=== PATIENT | female | born 1955 | race Caucasian/White ===

== ENCOUNTER → 2017-10-12 16:32 | Outpatient (CLI) | payer OTHER, SELFPAY ==
--- NOTE | 2017-10-12 16:36 | DI.MRI.S_ITS ---
PROCEDURE: MRFOOT LT WO CON INDICATIONS: PERIOSTITIS LEFT DORSAL LATERAL FOOT. LEFT FOOT PAIN TECHNIQUE: Noncontrast sagittal T1 spin echo and T2 fast spin echo with fat saturation, long-axis T1 spin echo and T2 fast spin echo with fat saturation, short-axis T1 spin echo and T2 fast spin echo with fat saturation through the forefoot. COMPARISON: [facility], CR, XR FOOT 3 VIEWS WEIGHT BEARING LEFT, 09/28/2017, 15:31. FINDINGS: Image quality: There is mild inhomogeneous fat saturation. Bones and joints: No bone marrow contusions or fractures. No definite evidence of stress reaction or stress fractures. The sesamoid bones appear in expected positions, without internal edema. There is mild 1st metatarsophalangeal joint degeneration with a small focus of subchondral edema in the 1st metatarsal head. There is also mild degeneration at the 4th tarsometatarsal joint with mild periarticular subchondral edema No intraosseous mass lesions. Soft tissues: The visualized plantar foot muscles demonstrate normal signal and bulk. Visualized flexor and extensor tendons appear intact, without tenosynovitis. The distal insertions of the peroneus brevis and longus tendons appear intact. The principal Lisfranc ligament appears intact. No soft tissue ganglion cysts. There is trace intermetatarsal bursa fluid at the 1st metatarsal interspace. Sagittal images demonstrate no evidence for plantar plate tears. IMPRESSION: 1. No evidence of stress reaction or stress fracture. 2. No evidence of osteomyelitis. 3. 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 on 10/15/2017 at 9:18 Approved by: Jose Cooney M.D. on 10/15/2017 at 9:35
== END ==
PROVIDERS: Visit Provider Podiatrist
DX: M79.672 Pain in left foot (principal); M19.072 Primary osteoarthritis, left ankle and foot
CPT/HCPCS: 73718

== ENCOUNTER → 2018-04-04 08:25 | Outpatient (CLI) | payer OTHER, SELFPAY ==
[2018-04-04 09:47] LABS: Add Manual Diff / Slide Review NO; Basophils Absolute Auto 100 /uL (0-100); Basophils Percent Auto 1.1 % (0-2); Eosinophils Absolute Auto 100 /uL (0-450); Eosinophils Percent Auto 2.9 % (2-4); Hematocrit 38.9 % (36-46); Hemoglobin 12.9 g/dL (12.0-16.0); Lymphocytes Absolute Auto 1000 /uL (1100-4500); Lymphocytes Percent Auto 20.1 % (25-40); Mean Corpuscular HGB Conc 33.1 % (30-36); Mean Corpuscular Hemoglobin 27.1 PG (26-34); Mean Corpuscular Volume 81.8 fL (80-100); Monocytes Absolute Auto 400 /uL (0-900); Neutrophils Absolute Auto 3300 /uL (1500-7000); Neutrophils Percent Auto 67.9 % (50-75); Platelet Count 311 X10^3/uL (150-400); Red Blood Cell Count 4.75 X10^6/uL (4.0-5.2); Red Cell Distribution Width 14.6 % (11.6-14.8); White Blood Cell Count 4.8 X10^3/uL (4.5-11.0)
[2018-04-04 10:19] LABS: Alanine Aminotransferase 39 IU/L (9-52); Albumin 4.2 g/dL (3.5-5.0); Albumin Globulin Ratio 1.1 (1.0-2.8); Alkaline Phosphatase 68 U/L (38-126); Aspartate Aminotransferase 41 IU/L (14-36); BUN Creatinine Ratio 21.1 (6-22); Bilirubin Total 0.4 mg/dL (0.2-1.3); Blood Urea Nitrogen 19 mg/dL (7-17); Carbon Dioxide 27 mmol/L (22-32); Chloride 103 mmol/L (98-107); Cholesterol 228 mg/dL (140-199); Estimated Glomerular Filt Rate > 60.0 mL/min (>60); Globulin 3.7 g/dL (1.7-4.1); Glucose 101 mg/dL (80-110); HDL Cholesterol 62 mg/dL (40-60); HEMOLYSIS < 15 (0-50); LDL Cholesterol Calculated 151 mg/dL (<100); Sodium 138 mmol/L (137-145); Total Protein 7.9 g/dL (6.3-8.2); Triglycerides 73 mg/dL (35-150)
== END ==
PROVIDERS: Visit Provider Physician Assistant
DX: E78.5 Hyperlipidemia, unspecified (principal); R01.1 Cardiac murmur, unspecified
CPT/HCPCS: 36415; 80053; 80061; 85025

== ENCOUNTER 2018-04-10 19:00 | Inpatient (IN) | payer OTHER, SELFPAY ==
[2018-04-10] VITALS (7 sets, daily range): BP systolic 99–150; BP diastolic 34–69; PULSE 67–81; RESP 18–97; TEMP 37.8; O2SAT 85–94
--- NOTE | 2018-04-10 19:17 | DI.RAD.S_ITS ---
PROCEDURE: XR CHEST 1V INDICATIONS: suspected sepsis TECHNIQUE: One view of the chest was acquired. COMPARISON: None. FINDINGS: Surgical changes and devices: None. Lungs and pleura: Mild patchy bilateral perihilar densities. No pleural effusions or pneumothorax. Mediastinum: Mediastinal contours appear normal. Heart size is enlarged. Bones and chest wall: No suspicious bony lesions. Overlying soft tissues appear unremarkable. IMPRESSION: Mild atypical pneumonia. Dictated by: Derik Lovett M.D. on 04/10/2018 at 19:35 Approved by: Derik Lovett M.D. on 04/10/2018 at 19:36
[2018-04-10] MEDS: ALBUTEROL/IPRATROPIUM 3 ML AMPUL INH (19:18)
--- NOTE | 2018-04-10 19:20 | ED_ITS ---
HPI - Fever General Chief Complaint: Fever Stated Complaint: FEVER, NAUSEA, NECK AND HEAD PAIN Time Seen by Provider: 04/10/18 19:19 Source: patient Mode of arrival: ambulatory Limitations: no limitations History of Present Illness HPI Narrative: The patient has been ill for about 1 week. Illness started last week from congestion and cough. She also developed nausea, vomiting diarrhea. However the GI symptoms started after she took Mucinex. Five days ago she developed fever. She has cough ongoing. The fever and cough continued. She presents now with weakness and fatigue with persistent cough. She is a nonsmoker, she has no history of respiratory disease or CHF. She presents with dyspnea. She is found to have a room air O2 sat of 85% at triage. She has a bicuspid aortic valve, she is concerned about her heart with the infection. She denies chest pain. He has fever but no chills or sweats. She does have fatigue. She is coughing, with dyspnea. She has no orthopnea or peripheral edema associ ated with the current dyspnea. She has been experiencing syncope on a regular basis. 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 Related Data Home Medications Medication Instructions Recorded Confirmed prednisolone acetate [Omnipred] OU Q DAY #0 12/02/15 Previous Rx's Medication Instructions Recorded hydrocodone 5 mg-acetaminophen 325 1 tab PO BEDTIME #20 tab 04/03/18 mg tablet Allergies Allergy/AdvReac Type Severity Reaction Status Date / Time diphenhydramine Allergy Severe Vicious Verified 04/10/18 19:07 [From BENADRYL] nightmares codeine [CODEINE] AdvReac Mild ITCHING Verified 04/10/18 19:07 meperidine [MEPERIDINE] AdvReac Mild LOCAL Verified 04/10/18 19:07 REACTION TO IV USE oxycodone [OXYCODONE] AdvReac Mild HEADACHE Verified 04/10/18 19:07 Review of Systems Review of Systems ROS Unobtainable: All systems reviewed & are unremarkable except as noted in HPI and below Constitutional Denies chills, Reports fatigue, Reports fever(s), Reports headache(s), Reports lethargy and Denies weakness Eyes Denies irritation ENT Ears, Nose, Mouth, and Throat: Denies change in voice, Reports headache(s), Denies neck pain, Reports sinus pressure and Denies sore throat Cardiovascular Denies chest pain, Reports syncope (Multiple recent episodes.), Denies irregular heart rhythm, Denies lightheadedness, Denies palpitations, Denies dyspnea and Denies orthopnea Respiratory Denies cough (Occasion productive), Denies dyspnea and Reports other (Hemoptysis while in the ER.) Gastrointestinal Gastrointestinal: Denies abdominal pain, Reports change in bowel habits, Reports diarrhea, Reports nausea and Reports vomiting Musculoskeletal Denies back pain and Denies neck pain Integumentary/Breasts Denies erythema and Denies rash Neurologic Reports syncope (Multiple recent episodes.), Reports headache(s) and Denies weakness Endocrine Reports fatigue and Denies palpitations PFS Medical History Bicuspid aortic valve (Acute) Hypertension (Acute) Menieres syndrome (Acute) Migraines (Acute) Raynauds phenomenon (Acute) Surgical History Status post appendectomy Status post hysterectomy Status post laparoscopic cholecystectomy Social History Smoking Status: Never smoker Social History Smoking Status: Never smoker Exam Initial Vital Signs Initial Vital Signs: Vital Signs Temperature 100.1 F H 04/10/18 19:03 Pulse Rate 79 04/10/18 19:03 Respiratory Rate 18 04/10/18 19:03 Blood Pressure 139/68 04/10/18 19:03 Pulse Oximetry 85 L 04/10/18 19:03 Const General: cooperative and well developed Nutritional Appearance: well nourished Orientation: alert, awake, oriented x3 and not confused [facility] Head: normocephalic and atraumatic Ears: TM's normal bilaterally Face and sinus: sinuses nontender and face symmetric Mouth: oral mucosae normal and moist mucous membranes Throat: posterior oropharynx normal, tonsils normal and uvula midline Eyes General: appearance normal, both eyes and all related structures Eyelids: eyelids normal Conjunctivae: conjunctivae normal Sclera: sclerae normal Pupils: PERRL EOM: EOM intact bilaterally Neck Neck: no meningeal signs and No JVD Chest Chest: normal inspection of the chest Resp Effort & Inspection: normal respiratory effort, able to speak in complete sentences, respiratory distress and no use of accessory muscles Auscultation: rales (Bilateral lower lobes), no rhonchi and no wheezes Cardio Rate: regular rate Rhythm: regular rhythm Heart Sounds: S1 normal, S2 normal, no click, no gallops, murmur systolic and no rubs Pulses: normal peripheral pulses GI Inspection: non-distended Palpation: soft, no hepatosplenomegaly, No guarding, No pulsatile mass and No tender Auscultation: normal bowel sounds Back/Spine/Pelvis Back: No CVA tenderness Skin General: no rashes or lesions noted Neuro General: alert, oriented x3, gait normal and no focal motor deficits Speech: speech normal Extrem General: normal to inspection, no pedal edema, no calf tenderness and other (Normal pulses in the lower extremities) Psych Appearance: well kempt Mental Status: mental status grossly normal Attitude: cooperative Thought Content: normal and suicidality Judgment: judgment good Course Course Narrative: The patient has pneumonia with hypoxia. She has a bicuspid aortic valve. Sepsis workup is benign. She was given Levaquin. As the evaluation proceeded, the pneumonia found on the initial exam is most likely from influenza. She is receiving oxygen. She has received neb treatments with improvement. The patient also developed hemoptysis during my exam. A D-dimer that was added to the evaluation is positive. I discussed the CT with the patient. She describes profound claustrophobia, and would be uncomfortable with a CT without deep sedation. Furthermore, she protested IV contrast. She is under the impression that IV contrast may be problematic with her bicuspid valve. Further intent to do the CT tonight has been aborted. I approach the hospitalist,CRESENCIO Altamirano, suggesting giving an injection of Lovenox and following with an echocardiogram and V/Q scan tomorrow morning. The hospitalist was rightfully concerned about her heart valve. Transfer was initially jarquin ggested. The patient has an echocardiogram pending, additional cardiac evaluation seems prudent. The patient's vitals are normal, she is talking in full sentences. She has an obvious source for hypoxia with influenza pneumonia obvious by testing, physical exam, and chest x-ray. She has no evidence of congestive heart failure. Five local/regional hospitals were contacted, no available beds are present. [facility] hospitalist did evaluate her, Lovenox was given. The patient is clinically stable and will be admitted here with additional workup pending as outlined above. Orders Ordered: ED Orders 04/11/18 EC echo complete with contrast Routine US carotid doppler BI Routine 04/11/18 01:22 PEP - Flutter Valve After each nebulizer 04/11/18 02:45 Respiratory Panel (Film Array) Stat 04/11/18 05:37 B Type Natriuretic Peptide Routine Troponin I Routine 04/11/18 06:00 NM pul vent and perfusion Routine Acetaminophen (Tylenol) 650 mg PO Q6HR PRN PRN Reason: As Needed for Fever/Mild Pain Albuterol (Ventolin) 2.5 mg INH NOW PRN PRN Reason: Shortness Of Breath Or Wheezing Last Admin: 04/11/18 01:49 Dose: 2.5 mg Admin: 04/10/18 19:26 Dose: 2.5 mg Enoxaparin Sodium (Lovenox) 40 mg SUBCUT DAILY [facility] Last Admin: 04/11/18 02:04 Dose: 40 mg Sodium Chloride (Normal Saline 0.9%) 1,000 mls @ 150 mls/hr IV CONT [facility] Last Admin: 04/11/18 01:57 Dose: 150 mls/hr Ondansetron HCl (Zofran) 4 mg IV Q8HR PRN PRN Reason: Nausea And Vomiting Oseltamivir Phosphate (Tamiflu) 75 mg PO BID [facility] Last Admin: 04/11/18 02:02 Dose: 75 mg Promethazine HCl (Phenadoz) 12.5 mg CA Q6HR PRN PRN Reason: Nausea And Vomiting Discontinued Medications Acetaminophen (Tylenol) 650 mg PO NOW ONE Stop: 04/10/18 21:07 Last Admin: 04/11/18 01:58 Dose: 650 mg Albuterol/Ipratropium (Duoneb) 3 ml INH NOW ONE Stop: 04/10/18 19:17 Last Admin: 04/10/18 19:18 Dose: 3 ml Sodium Chloride (Normal Saline 0.9%) 1,000 mls @ 1,000 mls/hr IV BOLUS ONE Stop: 04/10/18 20:16 Last Infusion: 04/10/18 21:00 Dose: 0 mls/hr Admin: 04/10/18 19:43 Dose: 1,000 mls/hr Sodium Chloride (Normal Saline 0.9%) 1,000 mls @ 1,000 mls/hr IV BOLUS ONE Stop: 04/10/18 20:30 Last Infusion: 04/11/18 01:37 Dose: 0 mls/hr Admin: 04/10/18 22:47 Dose: 1,000 mls/hr Levofloxacin (Levaquin) 750 mg in 150 mls @ 100 mls/hr IV NOW ONE Stop: 04/10/18 21:00 Last Infusion: 04/10/18 22:47 Dose: 0 mls/hr Admin: 04/10/18 20:08 Dose: 100 mls/hr Lorazepam (Ativan) 0.5 mg IV NOW ONE Stop: 04/10/18 21:07 Last Admin: 04/11/18 00:46 Dose: 0.5 mg Ondansetron HCl (Zofran) 4 mg IV NOW ONE Stop: 04/10/18 19:42 Last Admin: 04/10/18 19:43 Dose: 4 mg Quetiapine Fumarate (Seroquel) 25 mg PO NOW ONE Stop: 04/11/18 01:23 Last Admin: 04/11/18 02:02 Dose: 25 mg Vital Signs - 8 hr 04/11/18 01:15 04/11/18 01:23 04/11/18 01:45 Temperature 101.4 F H Pulse Rate 81 79 Respiratory Rate 21 24 Blood Pressure 130/87 146/88 H Pulse Oximetry 97 97 95 04/11/18 01:49 04/11/18 04:38 04/11/18 05:23 Temperature 99.1 F Pulse Rate 80 70 Respiratory Rate 20 16 Blood Pressure 120/60 Pulse Oximetry 98 92 95 MDM - Fever Lab Data Result diagrams: 04/10/18 19:36 04/10/18 19:36 Lab Results 04/10/18 04/10/18 04/10/18 Range/Units 19:36 19:36 19:36 WBC 3.2 L (4.5-11.0) X10^3/uL RBC 4.71 (4.0-5.2) X10^6/uL Hgb 12.6 (12.0-16.0) g/dL Hct 38.5 (36-46) % MCV 81.6 (80-100) fL MCH 26.8 (26-34) PG MCHC 32.8 (30-36) % RDW 14.7 (11.6-14.8) % Plt Count 229 (150-400) X10^3/uL Neut % (Auto) 80.8 H (50-75) % Lymph % (Auto) 12.8 L (25-40) % [place] % (Auto) 5.9 (3-14) % Eos % (Auto) 0.0 L (2-4) % Baso % (Auto) 0.5 (0-2) % Neut # (Auto) 2600 (6299-7090) /uL Lymph # (Auto) 400 L (7260-6666) /uL [place] # (Auto) 200 (0-900) /uL Eos # (Auto) 0 (0-450) /uL Baso # (Auto) 0 (0-100) /uL PT 13.0 H (10.1-12.7) SECONDS INR 1.1 (0.9-1.3) APTT 30 (26.4-36.2) SECONDS D-Dimer (<230) ng/mL Sodium (137-145) mmol/L Potassium (3.4-5.1) mmol/L Chloride (98-107) mmol/L Carbon Dioxide (22-32) mmol/L BUN (7-17) mg/dL Creatinine (0.52-1.04) mg/dL Estimated GFR (>60) mL/min BUN/Creatinine Ratio (6-22) Glucose (80-110) mg/dL Lactate (0.7-2.1) mmol/L Calcium (8.4-10.2) mg/dL Total Bilirubin (0.2-1.3) mg/dL AST (14-36) IU/L ALT (9-52) IU/L Alkaline Phosphatase (38-126) U/L Total Protein (6.3-8.2) g/dL Albumin (3.5-5.0) g/dL Globulin (1.7-4.1) g/dL Albumin/Globulin Ratio (1.0-2.8) Lipase (23-300) U/L Procalcitonin < 0.05 (<0.5) ng/mL Chlamy pneumoniae PCR (Not Detect) Adenovirus (PCR) (Not Detect) B.parapertussis DNA PCR (Not Detect) Coronavirus OC43 (PCR) (Not Detect) Coronavirus HKU1 (PCR) (Not Detect) Coronavirus 229E (PCR) (Not Detect) Coronavirus NL63 (PCR) (Not Detect) Human Metapneumovir PCR (Not Detect) Influenza Type A (PCR) (Not Detect) Influenza Type B (PCR) (Not Detect) Influenza A & B (PCR) (Negative) M. pneumoniae (PCR) (Not Detect) Parainfluenza 1 (PCR) (Not Detect) Parainfluenza 2 (PCR) (Not Detect) Parainfluenza 3 (PCR) (Not Detect) Parainfluenza 4 (PCR) (Not Detect) RSV (PCR) (Not Detect) Entero/Rhino (PCR) (Not Detect) 04/10/18 04/10/18 04/10/18 Range/Units 19:36 19:36 19:36 WBC (4.5-11.0) X10^3/uL RBC (4.0-5.2) X10^6/uL Hgb (12.0-16.0) g/dL Hct (36-46) % MCV (80-100) fL MCH (26-34) PG MCHC (30-36) % RDW (11.6-14.8) % Plt Count (150-400) X10^3/uL Neut % (Auto) (50-75) % Lymph % (Auto) (25-40) % [place] % (Auto) (3-14) % Eos % (Auto) (2-4) % Baso % (Auto) (0-2) % Neut # (Auto) (5960-5731) /uL Lymph # (Auto) (0484-0621) /uL [place] # (Auto) (0-900) /uL Eos # (Auto) (0-450) /uL Baso # (Auto) (0-100) /uL PT (10.1-12.7) SECONDS INR (0.9-1.3) APTT (26.4-36.2) SECONDS D-Dimer 725 H (<230) ng/mL Sodium 134 L (137-145) mmol/L Potassium 3.5 (3.4-5.1) mmol/L Chloride 99 (98-107) mmol/L Carbon Dioxide 26 (22-32) mmol/L BUN 10 (7-17) mg/dL Creatinine 0.80 (0.52-1.04) mg/dL Estimated GFR > 60.0 (>60) mL/min BUN/Creatinine Ratio 12.5 (6-22) Glucose 117 H (80-110) mg/dL Lactate 0.9 (0.7-2.1) mmol/L Calcium 8.2 L (8.4-10.2) mg/dL Total Bilirubin 0.5 (0.2-1.3) mg/dL AST 55 H (14-36) IU/L ALT 52 (9-52) IU/L Alkaline Phosphatase 92 (38-126) U/L Total Protein 7.4 (6.3-8.2) g/dL Albumin 3.8 (3.5-5.0) g/dL Globulin 3.6 (1.7-4.1) g/dL Albumin/Globulin Ratio 1.1 (1.0-2.8) Lipase 76 (23-300) U/L Procalcitonin (<0.5) ng/mL Chlamy pneumoniae PCR (Not Detect) Adenovirus (PCR) (Not Detect) B.parapertussis DNA PCR (Not Detect) Coronavirus OC43 (PCR) (Not Detect) Coronavirus HKU1 (PCR) (Not Detect) Coronavirus 229E (PCR) (Not Detect) Coronavirus NL63 (PCR) (Not Detect) Human Metapneumovir PCR (Not Detect) Influenza Type A (PCR) (Not Detect) Influenza Type B (PCR) (Not Detect) Influenza A & B (PCR) (Negative) M. pneumoniae (PCR) (Not Detect) Parainfluenza 1 (PCR) (Not Detect) Parainfluenza 2 (PCR) (Not Detect) Parainfluenza 3 (PCR) (Not Detect) Parainfluenza 4 (PCR) (Not Detect) RSV (PCR) (Not Detect) Entero/Rhino (PCR) (Not Detect) 04/10/18 04/11/18 Range/Units 19:36 02:45 WBC (4.5-11.0) X10^3/uL RBC (4.0-5.2) X10^6/uL Hgb (12.0-16.0) g/dL Hct (36-46) % MCV (80-100) fL MCH (26-34) PG MCHC (30-36) % RDW (11.6-14.8) % Plt Count (150-400) X10^3/uL Neut % (Auto) (50-75) % Lymph % (Auto) (25-40) % [place] % (Auto) (3-14) % Eos % (Auto) (2-4) % Baso % (Auto) (0-2) % Neut # (Auto) (8501-5880) /uL Lymph # (Auto) (5318-0884) /uL [place] # (Auto) (0-900) /uL Eos # (Auto) (0-450) /uL Baso # (Auto) (0-100) /uL PT (10.1-12.7) SECONDS INR (0.9-1.3) APTT (26.4-36.2) SECONDS D-Dimer (<230) ng/mL Sodium (137-145) mmol/L Potassium (3.4-5.1) mmol/L Chloride (98-107) mmol/L Carbon Dioxide (22-32) mmol/L BUN (7-17) mg/dL Creatinine (0.52-1.04) mg/dL Estimated GFR (>60) mL/min BUN/Creatinine Ratio (6-22) Glucose (80-110) mg/dL Lactate (0.7-2.1) mmol/L Calcium (8.4-10.2) mg/dL Total Bilirubin (0.2-1.3) mg/dL AST (14-36) IU/L ALT (9-52) IU/L Alkaline Phosphatase (38-126) U/L Total Protein (6.3-8.2) g/dL Albumin (3.5-5.0) g/dL Globulin (1.7-4.1) g/dL Albumin/Globulin Ratio (1.0-2.8) Lipase (23-300) U/L Procalcitonin (<0.5) ng/mL Chlamy pneumoniae PCR Not detected (Not Detect) Adenovirus (PCR) Not detected (Not Detect) B.parapertussis DNA PCR Not detected (Not Detect) Coronavirus OC43 (PCR) Not detected (Not Detect) Coronavirus HKU1 (PCR) Not detected (Not Detect) Coronavirus 229E (PCR) Not detected (Not Detect) Coronavirus NL63 (PCR) Not detected (Not Detect) Human Metapneumovir PCR Not detected (Not Detect) Influenza Type A (PCR) Not detected (Not Detect) Influenza Type B (PCR) Not detected (Not Detect) Influenza A & B (PCR) Positive, type a A (Negative) M. pneumoniae (PCR) Not detected (Not Detect) Parainfluenza 1 (PCR) Not detected (Not Detect) Parainfluenza 2 (PCR) Not detected (Not Detect) Parainfluenza 3 (PCR) Not detected (Not Detect) Parainfluenza 4 (PCR) Not detected (Not Detect) RSV (PCR) Not detected (Not Detect) Entero/Rhino (PCR) Not detected (Not Detect) Imaging Data Chest x-ray: Radiologist's impression: [place] [address] CT Scan Report Signed Patient: Freda Luna [facility]#: [id number] : 03/15/1983Acct:[id number] Age/Sex: 35 / FDate of Service: 04/10/18 Loc: ED Accession Number: [id number] Procedure: CT head/brain wo con Ordering Provider: Darwin Camilo M.D. PROCEDURE: CT HEAD/BRAIN WO CON INDICATIONS: left arm numbness TECHNIQUE: Noncontrast 4.5 mm thick angled axial sections acquired from the foramen magnum to the vertex, with coronal and sagittal reformats. For radiation dose reduction, the following was used: automated exposure control, adjustment of mA and/or kV according to patient size. COMPARISON: None. FINDINGS: Image quality: Excellent. CSF spaces: Basal cisterns are patent. No extra-axial fluid collections. Ventricles are normal in size and shape. Brain: No midline shift. No intracranial masses or hemorrhage. Quintero-white matter interface is normal. Skull and face: Calvarium and visualized facial bones are intact, without suspicious lesions. Sinuses: Visualized sinuses and mastoids are clear. IMPRESSION: No acute intracranial abnormality. Dictated by: Derik Lovett M.D. on 04/10/2018 at 19:36 Approved by: Derik Lovett M.D. on 04/10/2018 at 19:37 Discharge Plan Departure Patient Disposition: Admitted as Observation Clinical Impression: Influenza A with pneumonia, Bicuspid aortic valve Discharge Date/Time: 04/11/18 01:26 Interventions: ED Discharge Assessment Last Done: 04/11/18 01:15 Referrals: Aparna Mayo PA-C [Primary Care Provider] - Admit Date/Time: 04/11/18 00:15 Admit Provider: Daniel Altamirano
[2018-04-10] MEDS: ALBUTEROL 2.5 MG/3 ML NEB (ADULT) INH (19:26)
[2018-04-10] MEDS: ONDANSETRON 4 MG/2 ML INJ IV (19:43)
[2018-04-10] MEDS: SODIUM CHLORIDE 0.9% 1,000 ML 1000 ML IV ×2 (19:43→22:47)
[2018-04-10 19:51] LABS: Add Manual Diff / Slide Review NO; Basophils Absolute Auto 0 /uL (0-100); Basophils Percent Auto 0.5 % (0-2); Eosinophils Absolute Auto 0 /uL (0-450); Hematocrit 38.5 % (36-46); Hemoglobin 12.6 g/dL (12.0-16.0); Lymphocytes Absolute Auto 400 /uL (1100-4500); Lymphocytes Percent Auto 12.8 % (25-40); Mean Corpuscular HGB Conc 32.8 % (30-36); Mean Corpuscular Hemoglobin 26.8 PG (26-34); Mean Corpuscular Volume 81.6 fL (80-100); Monocytes Absolute Auto 200 /uL (0-900); Monocytes Percent Auto 5.9 % (3-14); Neutrophils Absolute Auto 2600 /uL (1500-7000); Neutrophils Percent Auto 80.8 % (50-75); Platelet Count 229 X10^3/uL (150-400); Red Blood Cell Count 4.71 X10^6/uL (4.0-5.2); Red Cell Distribution Width 14.7 % (11.6-14.8); White Blood Cell Count 3.2 X10^3/uL (4.5-11.0)
[2018-04-10 19:55] LABS: INR 1.1 (0.9-1.3)
[2018-04-10 19:58] LABS: PTT Partial Thromboplastin Tim 30 SECONDS (26.4-36.2)
[2018-04-10 20:01] LABS: Lactate (Lactic Acid) 0.9 mmol/L (0.7-2.1)
[2018-04-10 20:04] LABS: Alanine Aminotransferase 52 IU/L (9-52); Albumin 3.8 g/dL (3.5-5.0); Albumin Globulin Ratio 1.1 (1.0-2.8); Alkaline Phosphatase 92 U/L (38-126); Aspartate Aminotransferase 55 IU/L (14-36); BUN Creatinine Ratio 12.5 (6-22); Bilirubin Total 0.5 mg/dL (0.2-1.3); Blood Urea Nitrogen 10 mg/dL (7-17); Calcium 8.2 mg/dL (8.4-10.2); Carbon Dioxide 26 mmol/L (22-32); Chloride 99 mmol/L (98-107); Estimated Glomerular Filt Rate > 60.0 mL/min (>60); Globulin 3.6 g/dL (1.7-4.1); Glucose 117 mg/dL (80-110); HEMOLYSIS 36 (0-50); Lipase 76 U/L (23-300); Potassium 3.5 mmol/L (3.4-5.1); Sodium 134 mmol/L (137-145); Total Protein 7.4 g/dL (6.3-8.2)
[2018-04-10] MEDS: levoFLOXacin 750 MG/150 ML PIGGYBACK 100 MG IV (20:08)
[2018-04-10 20:27] LABS: Procalcitonin < 0.05 ng/mL (<0.5)
[2018-04-10 20:48] LABS: D Dimer 725 ng/mL (<230)
[2018-04-11] VITALS (13 sets, daily range): BP systolic 120–154; BP diastolic 56–88; PULSE 70–81; RESP 16–24; TEMP 36.4–38.6; O2SAT 84–98; BMI 38.2
--- NOTE | 2018-04-11 | DI.ECHO.S_ITS ---
[facility]---------+ [facility] +---------+ : : [address] : : : : [id number] : : : : Phone: [phone]+ Echocardiogram Report + + :Name: FROILAN LOPES Study Date: 04/11/2018 Height: 64 in : :[facility] Weight: 222 lb: : Gender: Female BSA: 2.0 m2 : :: 1955 Age: 62 yrs : :Reason For Study: Pneumonia : : Performed By: Dania Tidwell : :Referring: ISHAAN FRAGA : + + Interpretation Summary 1) Normal left ventricular thickness, size, wall motion, and systolic function (EF 60-65%). 2) Normal right ventricular size and function. 3) There is severe aortic stenosis (valve area 0.8cm2, mean gradient 56mmHg, severity ratio 0.19). 4) The right ventricular systolic pressure is estimated to be at least 46 mmHg based on an estimated right atrial pressure of 8 mm Hg. 5) No prior Echo available for comparison. Recommend cardiology consultation. Findings discussed with Dr. Devlin on 04/11/2018 at 1320. Procedure: A two-dimensional transthoracic echocardiogram with color flow and Doppler was performed. The study quality was technically adequate. There is no prior echocardiogram noted for this patient. The heart rate ranged between 74-75 bpm during the study. Left Ventricle: The left ventricle is normal in size. There is mild asymmetric left ventricular hypertrophy. The ejection fraction is estimated to be 60-65%. Right Ventricle: The right ventricle grossly appears normal in size with probable normal systolic function. Atria: The left atrial size is normal. Right atrial size is normal. Injection of contrast documented no interatrial shunt. Mitral Valve: The mitral valve is normal in structure and function. There is no mitral regurgitation noted. Aortic Valve: There is severe aortic valve sclerosis. The calculated aortic valve area is 0.8 cm2. The peak aortic velocity is 4.9 m/sec. The aortic valve mean gradient is 56 mmHg. Severity ratio is 0.19. The aortic valve area indexed to the BSA is 0.37 . There is severe aortic stenosis. There is trace aortic regurgitation. Tricuspid Valve: The tricuspid valve is normal in structure and function. There is trace tricuspid regurgitation. The right ventricular systolic pressure is estimated to be at least 46 mmHg based on an estimated right atrial pressure of 8 mm Hg. Pulmonic Valve: The pulmonic valve is not well seen, but is grossly normal. There is trace pulmonic regurgitation. Great Vessels: The aortic root is normal size. The dimensions of the ascending aorta are normal. The IVC is dilated (diameter is greater than 2.1 cm) yet it collapses greater than 50% with a sniff. This suggests a right atrial pressure of 8 mm Hg. Pericardium/ Pleura There is no pericardial effusion. There has been no significant change since the previous study. MMode/2D Measurements & Calculations LVIDd: 5.4 cm LVOT diam: 2.2 cm LVIDs: 2.9 cm Ao root diam: 3.3 cm FS: 47.0 % Aortic Jxn: 2.8 cm EPSS: 0.96 cm asc Aorta Diam: 3.0 cm IVSd: 0.97 cm LVPWd: 1.3 cm LV parish. diameter/BSA (cm/m^2): 2.6 LV sys. diameter/BSA (cm/m^2): 1.4 LA dimension: 4.0 cm RA long axis: 5.0 cm LA A2 area: 19.6 cm2 RA area: 13.6 cm2 LA A4 area: 25.9 cm2 RA vol: 31.5 ml LA length (vol): 6.2 cm RA : 15.4 ml/m2 LA vol: 69.9 ml IVC diam: 2.3 cm LA vol index: 34.2 ml/m2 RVDd major: 6.7 cm RVD1 (basal): 3.5 cm RVD2 (mid): 3.4 cm Doppler Measurements & Calculations Ao V2 max: 494.7 cm/sec LVOT Max Rpahael: 95.0 cm/sec Ao V2 mean: 349.4 cm/sec LV V1 max P.6 mmHg Ao max P.9 mmHg LV V1 VTI: 21.8 cm Ao mean P.0 mmHg JAYY(I,D): 0.76 cm2 Ao V2 VTI: 112.4 cm JAYY(V,D): 0.76 cm2 sev ratio: 0.19 JAYY indexed to BSA (cm^2/m^2): 0.37 MV E max raphael: 160.8 cm/sec TR max raphael: 310.0 cm/sec MV A max raphael: 111.6 cm/sec TR max P.4 mmHg MV E/A: 1.4 PA V2 max: 129.8 cm/sec Med Peak E' Raphael: 6.5 cm/sec PA V2 mean: 80.1 cm/sec E/E' med: 24.6 PA mean P.2 mmHg Lat Peak E' Raphael: 6.4 cm/sec PA Accel Time: 0.13 sec E/E' lat: 25.0 E/e' average: 24.8 MV dec time: 0.17 sec MV P1/2t: 52.7 msec MV P1/2t max raphael: 160.8 cm/sec SV(LVOT): 85.9 ml MVA(P1/2t): 4.2 cm2 Reading Physician:01:24 PM
--- NOTE | 2018-04-11 | DI.US.S_ITS ---
PROCEDURE: US CAROTID DOPPLER BI INDICATIONS: SYNCOPE, HLD, CONCERN FOR PE TECHNIQUE: Color and pulse Doppler interrogation was performed of both carotid systems, with image documentation and velocity measurements. COMPARISON: None. FINDINGS: Stenosis calculations are based on SRU (Society of Radiologists in Ultrasound) criteria. Right side: Brachial blood pressure: 136/64 mm Hg. Common carotid artery peak systolic velocity: 74 cm/sec. Internal carotid artery peak systolic velocity: 113 cm/sec. Internal carotid artery end diastolic velocity: 2.7 cm/sec. External carotid artery peak systolic velocity: 104 cm/sec. ICA/CCA peak systolic ratio: 1.5. Quintero scale imaging description: No identified calcific or soft plaque Percent internal carotid artery stenosis: None found. Vertebral artery: Flow direction is antegrade. Left side: Brachial blood pressure: 144/62 mm Hg. Common carotid artery peak systolic velocity: 90 cm/sec. Internal carotid artery peak systolic velocity: 116 cm/sec. Internal carotid artery end diastolic velocity: 26 cm/sec. External carotid artery peak systolic velocity: 98 cm/sec. ICA/CCA peak systolic ratio: 1.3. Quintero scale imaging description: No calcific or soft plaque found Percent internal carotid artery stenosis: None identified. Vertebral artery: Flow direction is antegrade. IMPRESSION: Normal examination bilaterally. Dictated by: Helder Beck M.D. on 04/11/2018 at 10:38 Approved by: Helder Beck M.D. on 04/11/2018 at 10:41
[2018-04-11] MEDS: LORazepam 2 MG/ML SYRINGE 0.5 MG IV (00:46)
[2018-04-11] MEDS: ALBUTEROL 2.5 MG/3 ML NEB (ADULT) INH ×2 (01:49→07:51)
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
[2018-04-11] MEDS: SODIUM CHLORIDE 0.9% 1,000 ML 150 ML IV ×2 (01:57→08:11)
[2018-04-11] MEDS: ACETAMINOPHEN 325 MG TABLET 650 MG PO ×3 (01:58→13:05)
[2018-04-11] MEDS: QUETIAPINE 25 MG TABLET PO (02:02)
[2018-04-11] MEDS: OSELTAMIVIR 75 MG CAPSULE PO ×2 (02:02→08:11)
[2018-04-11] MEDS: ENOXAPARIN 40 MG/0.4 ML SYRINGE SUBCUT (02:04)
[2018-04-11 04:11] LABS: Adenovirus Not Detected (Not Detect); Bordetella pertussis Not Detected (Not Detect); Chlamydophila pneumoniae Not Detected (Not Detect); Coronavirus 229E Not Detected (Not Detect); Coronavirus HKU1 Not Detected (Not Detect); Coronavirus NL 63 Not Detected (Not Detect); Coronavirus OC43 Not Detected (Not Detect); Human Metapneumovirus Not Detected (Not Detect); Human Rhinovirus/Enterovirus Not Detected (Not Detect); Influenza A Not Detected (Not Detect); Influenza B Not Detected (Not Detect); Mycoplasma pneumoniae Not Detected (Not Detect); Parainfluenza Virus 1 Not Detected (Not Detect); Parainfluenza Virus 2 Not Detected (Not Detect); Parainfluenza Virus 3 Not Detected (Not Detect); Parainfluenza Virus 4 Not Detected (Not Detect); Respiratory Syncytial Virus Not Detected (Not Detect)
--- NOTE | 2018-04-11 05:23 | PC.ADMIT ---
DOES NOT WANT TO [id number] Admission Note: The patient,Eboni Huerta,62 y/o, was given written information regarding hospital policies, unit procedures and contact persons. Patient's smoking status: Never smoker. Vital Signs - 8 hr 04/10/18 22:20 04/11/18 01:15 04/11/18 01:23 Temperature 101.4 F H Pulse Rate 76 81 79 Respiratory Rate 97 H 21 24 Blood Pressure 130/87 146/88 H Blood Pressure [Right Arm] 99/34 L Pulse Oximetry 97 97 04/11/18 01:45 04/11/18 01:49 04/11/18 04:38 Temperature Pulse Rate 80 Respiratory Rate 20 Blood Pressure Blood Pressure [Right Arm] Pulse Oximetry 95 98 92 Patient is admitted to AC room 217 via stretcher, fatigued and dyspneic with exertion, initially placed on 4L NC, SpO2 >94% 2-3L now after neb tx. Breath sounds coarse wheezes throughout, persistent non-productive cough. SR/ST on Telemetry. Temp 101.4, PO Tylenol given along with Tamiflu and Seroquel for sleep. Lovenox given, IVF NS @ 150ml/hr. PIV in Lt hand removed per her request d/t pain. See assessment notes.
[2018-04-11 06:37] LABS: B Type Natriuretic Peptide 152 (<100)
[2018-04-11 10:21] LABS: Hematocrit 33.5 % (36-46); Mean Corpuscular HGB Conc 32.9 % (30-36); Mean Corpuscular Hemoglobin 26.8 PG (26-34); Mean Corpuscular Volume 81.6 fL (80-100); Platelet Count 164 X10^3/uL (150-400); Red Blood Cell Count 4.11 X10^6/uL (4.0-5.2); Red Cell Distribution Width 14.5 % (11.6-14.8)
[2018-04-11 10:28] LABS: Add Manual Diff / Slide Review YES; White Blood Cell Count 1.9 X10^3/uL (4.5-11.0)
[2018-04-11] MEDS: ALBUTEROL/IPRATROPIUM 3 ML AMPUL INH ×2 (10:28→15:35)
[2018-04-11 10:41] LABS: Magnesium 1.7 mg/dL (1.6-2.3)
[2018-04-11 10:43] LABS: BUN Creatinine Ratio 8.6 (6-22); Blood Urea Nitrogen 6 mg/dL (7-17); Calcium 7.1 mg/dL (8.4-10.2); Carbon Dioxide 25 mmol/L (22-32); Chloride 102 mmol/L (98-107); Estimated Glomerular Filt Rate > 60.0 mL/min (>60); Glucose 139 mg/dL (80-110); HEMOLYSIS < 15 (0-50); Sodium 135 mmol/L (137-145)
[2018-04-11 10:52] LABS: Neutrophils Absolute Manual 1444 /uL (3000-5900); Total Cells Counted 50
[2018-04-11 10:53] LABS: RBC Morphology Normal Morphology
[2018-04-11 11:24] LABS: Procalcitonin < 0.05 ng/mL (<0.5)
[2018-04-11] MEDS: levoFLOXacin 750 MG/150 ML PIGGYBACK 100 MG IV (12:09)
[2018-04-11] MEDS: prednisoLONE OPHTH SUSP 1 DROPS EYE-BOTH (12:10)
[2018-04-11] MEDS: FUROSEMIDE 20 MG/2 ML VIAL IV (14:11)
[2018-04-11] MEDS: CALCIUM GLUCONATE 4.65 MEQ in SODIUM CHLORIDE 0.9% 50 ML 120 ML IV (14:29)
[2018-04-11] MEDS: POTASSIUM CHLORIDE 40 MEQ in SODIUM CHLORIDE 0.9% 500 ML 130 ML IV (15:09)
[2018-04-11] MEDS: BENZONATATE 100 MG CAPSULE PO (15:16)
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
--- NOTE | 2018-04-11 16:08 | PC.NURSE ---
Cardiac/Resp: Lungs very course through out. Freq loose cough, pt reporting she has brought up some blood tinged secretions. O2 on at 3L NC with a cont pulse ox showing sats are 96% or greater. Hx of fall and rib fx, pt up with assist only. No c/p but does feel sob and rr is elevated to 32 when she is up at times. Likes to keep hob elevated. Pt's abnormal labs were called to this am along with her resp status. See multiple new orders. Is c/p free and tele on, has been in sr. Pt has been keeping family updated on her condition and has not wanted this nurse to call anyone for her. Pt requesting to go to [facility] if this is a cardiac related issue. Dr. Devlin in to see pt several times. [facility] is accepting the patient. Report called to donnell in ICU and reviewed pt's hospital course, lab values, what was being done to correct them. Potential fluid overload and received IV lasix. Recent fall and rib fx. Current cardiac status and echo. Questions answered. Pt to be transfered by [facility].
[2018-04-11] MEDS: CEFTRIAXONE 2 GM/50 ML FROZ.PIGGY IV (16:36)
--- NOTE | 2018-04-12 11:48 | CM.IDA ---
Addendum entered by JOCELYN Gutierrez 04/12/18 11:51: Late Entry Original Note: Trnsf to [facility] 3.7.19, no need for initial DCP assessment. JW
== END 2018-04-11 17:17 | disposition short-term general hospital (02) | DRG 871 ==
LOC: ED 20:48 → AC 04-11 00:17
PROVIDERS: Admitting Provider Nurse Practitioner Gerontology; Emergency Provider Emergency Medicine; Family Provider Physician Assistant; PCP Physician Assistant; Visit Provider Nurse Practitioner Gerontology
DX: A41.9 Sepsis, unspecified organism (principal); J10.08 Influenza due to other identified influenza virus with other specified pneumonia; J18.8 Other pneumonia, unspecified organism; J96.01 Acute respiratory failure with hypoxia; Q23.1 Congenital insufficiency of aortic valve; R04.2 Hemoptysis; R65.20 Severe sepsis without septic shock; I10 Essential (primary) hypertension; R73.9 Hyperglycemia, unspecified; E86.1 Hypovolemia; E87.5 Hyperkalemia; F40.240 Claustrophobia; R20.0 Anesthesia of skin; Z53.29 Procedure and treatment not carried out because of patient's decision for other reasons
CPT/HCPCS: 36415; 36591; 71045; 80048; 80053; 83605; 83690; 83735; 83880; 84145; 84484; 85025; 85379; 85610; 85730; 87040; 87070; 87205; 87400; 87449; 87633; 93880; 94640; 94760; 96361; 96365; 96366; 96374; 99285; C8929; J0610; J0696; J1650; J1940; J1956; J2060; J2405; J3480; J7613

== ENCOUNTER 2018-05-07 15:13 | Inpatient (IN) | payer OTHER, SELFPAY ==
[2018-04-29 10:49] VITALS: BMI 38.2
[2018-05-07] VITALS (8 sets, daily range): BP systolic 131–154; BP diastolic 57–93; PULSE 78–89; RESP 18–25; TEMP 36.7–36.9; O2SAT 90–100; BMI 37.8
--- NOTE | 2018-05-07 15:16 | DI.RAD.S_ITS ---
PROCEDURE: XR CHEST 2V INDICATIONS: shortness of air TECHNIQUE: 2 views of the chest were acquired. COMPARISON: [facility], CR, XR CHEST 1V, 04/10/2018, 19:21. FINDINGS: Surgical changes and devices: Sternal wires consistent with previous bypass procedure. Lungs and pleura: There is mild appearance of hazy opacities within the bases as well as more focal opacity overlying the right middle lobe. Mediastinum: Mediastinal contours are normal. Heart size is enlarged. Bones and chest wall: No suspicious bony abnormalities. Soft tissues appear unremarkable. IMPRESSION: Hazy opacities within the bases possibly representing dependent edema. However, given focal area of opacity overlying the right middle lobe developing areas of atelectasis and/or air space disease such as pneumonia cannot be excluded. Recommend interval followup to document resolution. Dictated by: Jessica Monzon M.D. on 05/07/2018 at 16:52 Approved by: Jessica Monzon M.D. on 05/07/2018 at 16:53
--- NOTE | 2018-05-07 15:42 | ED.SOB ---
HPI - SOB/Dyspnea General Chief Complaint: Shortness of Breath/Dyspnea Stated Complaint: SOB Time Seen by Provider: 05/07/18 15:41 Source: patient Mode of arrival: ambulatory Limitations: no limitations History of Present Illness 62-year-old female comes to the emergency department with complaint of new worsening shortness of breath. Patient states she was diagnosed with influenza a on April 10, 2018 as well as pneumonia. She had echo the following day. She has a known bicuspid aorta but was worsening. She was transferred to [facility]. She was discharged home but because of her worsening aortic valve she was admitted on 04/26 for aortic valve replacement. She has a bovine valve. It was open surgery. She was discharged on 04/30. She has had normal healing with normal aches and pains and mild shortness of breath. In the last day she has had new pain kind of on the right side underneath the breasts, pain with inspiration that is much worse. She finds that if she leans forward it is significantly worse. Patient has not been coughing up any blood. She has had some mild cough but no major changes. Her oxygen saturation has been doing very well she has been checking it at home. She gets very short of breath with exertion she can only go 5 or 6 steps. This is much worse than when she left the hospital. She has not any fevers, she denies any abdominal pain, no nausea no vomiting no diarrhea or constipation. She has been taking metoprolol 12.5 mg b.i.d. along with 81 mg aspirin. She finished her last dose of Lasix today. Otherwise she was not a lot of medications before. She has been taking Flexeril. She has had history of cholecystectomy and hysterectomy. Related Data Home Medications Medication Instructions Recorded Confirmed prednisolone acetate [Omnipred] 1 drp OU BEDTIME #0 12/02/15 04/11/18 prednisolone acetate 1 drp EYE-BOTH BEDTIME 04/11/18 04/11/18 Previous Rx's Medication Instructions Recorded hydrocodone 5 mg-acetaminophen 325 1 tab PO BEDTIME #20 tab 04/03/18 mg tablet acetaminophen 650 mg PO Q4HR PRN #1 tab 04/11/18 albuterol sulfate 2.5 mg INH NOW PRN #1 ml 04/11/18 benzocaine-menthol [Cepacol Sore 1 ea PO Q4HR PRN #1 ea 04/11/18 Throat (erin-men)] benzonatate 100 mg PO TID PRN #1 cap 04/11/18 enoxaparin [Lovenox] 100 mg SUBCUT BID #1 ml 04/11/18 ipratropium-albuterol 3 ml INH RTQ4HR #1 ml 04/11/18 levofloxacin 750 mg PO DAILY #1 tab 04/11/18 oseltamivir [Tamiflu] 75 mg PO BID #1 cap 04/11/18 promethazine [Phenadoz] 12.5 mg FL Q6HR PRN #1 ea 04/11/18 pseudoephedrine HCl 30 mg PO Q6HR PRN #1 tab 04/11/18 Allergies Allergy/AdvReac Type Severity Reaction Status Date / Time diphenhydramine Allergy Severe Vicious Verified 04/10/18 19:07 [From BENADRYL] nightmares codeine [CODEINE] AdvReac Mild ITCHING Verified 04/10/18 19:07 meperidine [MEPERIDINE] AdvReac Mild LOCAL Verified 04/10/18 19:07 REACTION TO IV USE oxycodone [OXYCODONE] AdvReac Mild HEADACHE Verified 04/10/18 19:07 Review of Systems Review of Systems ROS Unobtainable: All systems reviewed & are unremarkable except as noted in HPI and below Constitutional Denies chills, Denies fever(s), Denies lethargy and Denies weakness Cardiovascular Reports chest pain, Denies diaphoresis, Denies syncope, Denies rapid heart rate, Denies edema, Denies irregular heart rhythm, Denies lightheadedness, Reports palpitations, Reports dyspnea, Reports dyspnea on exertion and Denies orthopnea Respiratory Denies change in phlegm color, Denies chest congestion, Reports cough, Denies hemoptysis, Denies excessive phlegm production, Reports pain on inspiration, Reports pain with cough, Reports dyspnea, Reports dyspnea on exertion and Denies wheezing Gastrointestinal Gastrointestinal: Denies abdominal pain, Denies change in bowel habits, Denies diarrhea, Denies nausea and Denies vomiting Genitourinary Denies other (No urinary symptoms) Musculoskeletal Denies back pain Integumentary/Breasts Reports other (Healing incision) Neurologic Denies syncope and Denies weakness Endocrine Reports palpitations Allergic/Immunologic Denies wheezing [facility] Medical History Bicuspid aortic valve (Acute) Hypertension (Acute) Menieres syndrome (Acute) Migraines (Acute) Raynauds phenomenon (Acute) Surgical History Aortic valve replaced (Acute) Status post appendectomy Status post hysterectomy Status post laparoscopic cholecystectomy Social History Smoking Status: Never smoker Social History Smoking Status: Never smoker Exam Narrative Exam Narrative: GENERAL: Alert and oriented x three, obese, well-appearing female in mild distress. HEENT: Head normocephalic, atraumatic, EOMI, pupils reactive, face symmetric, moist mucous membranes NECK: Supple, full range of motion CARDIOVASCULAR: Regular rate and rhythm without murmurs, rubs or gallops. No JVD. No edema bilateral lower extremities. chest is nontender underneath the right breast. No rash or skin changes. Patient has midline incision has some slight erythema that appears consistent with healing and appears to be healing well. There is no signs of dehiscence. RESPIRATORY: Breath sounds equal bilaterally, no wheezes rales or rhonchi. No tachypnea. No accessory muscle use. Speaks in full sentences but slightly out of breath by the end. ABDOMEN: Soft, nontender. Normoactive bowel sounds all 4 quadrants. No guarding or rebound, rigidity, no mass : No CVA tenderness EXTREMITIES: Normal range of motion, no clubbing or edema. Neurovascularly intact. 2+ pulses bilateral lower extremities. Patient does not have any increase in circumference and left versus right lower extremity. NEUROLOGICAL: Cranial nerves II through XII grossly intact. Moving all extremities SKIN: Warm, dry, no petechiae, no rashes or lesions. Initial Vital Signs Initial Vital Signs: Vital Signs Temperature 98.4 F 05/07/18 15:21 Pulse Rate 84 05/07/18 15:21 Respiratory Rate 22 05/07/18 15:21 Blood Pressure 154/93 H 05/07/18 15:21 Pulse Oximetry 97 05/07/18 15:21 Course Orders Ordered: ED Orders 04/02/19 15:16 XR chest 2V Stat 05/07/18 15:30 B Type Natriuretic Peptide Stat Complete Blood Count AUTO DIFF Stat Comprehensive Metabolic Panel Stat Lipase Stat Partial Thromboplastin Time Stat Procalcitonin Stat Prothrombin Time INR Stat Troponin & CK Cardiac Panel Stat 05/07/18 15:32 EKG-12 Lead Stat 05/07/18 16:28 CT angio chest PE protocol Stat 05/07/18 18:18 US periph venous low extrem bi Stat Discontinued Medications Hydrocodone Bitart/Acetaminophen ([place] 5/325) 1 tab PO NOW ONE Stop: 05/07/18 18:40 Last Admin: 05/07/18 18:46 Dose: 1 tab Enoxaparin Sodium (Lovenox) 100 mg 1 mg/kg (100 mg) SUBCUT NOW ONE Stop: 05/07/18 19:12 Last Admin: 05/07/18 19:28 Dose: Not Given Enoxaparin Sodium (Lovenox) 100 mg 1 mg/kg (100 mg) SUBCUT NOW ONE Stop: 05/07/18 19:31 Last Admin: 05/07/18 19:27 Dose: 100 mg Furosemide (Lasix) 60 mg IV NOW ONE Stop: 05/07/18 18:57 Last Admin: 05/07/18 19:19 Dose: Not Given Furosemide (Lasix) 40 mg IV NOW ONE Stop: 05/07/18 19:17 Last Admin: 05/07/18 19:28 Dose: 40 mg Vital Signs - 8 hr 05/07/18 15:21 05/07/18 17:05 05/07/18 17:32 Temperature 98.4 F Pulse Rate 84 79 78 Respiratory Rate 22 22 21 Blood Pressure 154/93 H Blood Pressure [Left Arm] 144/66 H 148/74 H Pulse Oximetry 97 100 100 05/07/18 18:30 05/07/18 19:14 Temperature 98.4 F Pulse Rate 81 81 Respiratory Rate 25 H 25 H Blood Pressure 154/93 H Blood Pressure [Left Arm] 148/64 H Pulse Oximetry 90 L 90 L MDM - SOB/Dyspnea Lab Data Attestation: I reviewed the patient's lab results. Result diagrams: 05/07/18 15:30 05/07/18 15:30 Lab Results 05/07/18 05/07/18 05/07/18 Range/Units 15:30 15:30 15:30 WBC 11.1 H (4.5-11.0) X10^3/uL RBC 4.26 (4.0-5.2) X10^6/uL Hgb 11.2 L (12.0-16.0) g/dL Hct 34.5 L (36-46) % MCV 80.9 (80-100) fL MCH 26.3 (26-34) PG MCHC 32.5 (30-36) % RDW 15.1 H (11.6-14.8) % Plt Count 425 H (150-400) X10^3/uL Neut % (Auto) 78.2 H (50-75) % Lymph % (Auto) 10.1 L (25-40) % Cotton % (Auto) 7.5 (3-14) % Eos % (Auto) 3.8 (2-4) % Baso % (Auto) 0.4 (0-2) % Neut # (Auto) 8700 H (1601-7067) /uL Lymph # (Auto) 1100 (7411-5018) /uL Cotton # (Auto) 800 (0-900) /uL Eos # (Auto) 400 (0-450) /uL Baso # (Auto) 0 (0-100) /uL PT 15.5 H (10.1-12.7) SECONDS INR 1.3 (0.9-1.3) APTT 27 D (26.4-36.2) SECONDS Sodium 136 L (137-145) mmol/L Potassium 4.0 (3.4-5.1) mmol/L Chloride 101 (98-107) mmol/L Carbon Dioxide 24 (22-32) mmol/L BUN 10 (7-17) mg/dL Creatinine 0.80 (0.52-1.04) mg/dL Estimated GFR > 60.0 (>60) mL/min BUN/Creatinine Ratio 12.5 (6-22) Glucose 111 H (80-110) mg/dL Calcium 9.0 (8.4-10.2) mg/dL Total Bilirubin 0.5 (0.2-1.3) mg/dL AST 29 (14-36) IU/L ALT 26 (9-52) IU/L Alkaline Phosphatase 70 (38-126) U/L Total Creatine Kinase 199 H (30-135) U/L CK-MB (CK-2) 1.16 (<2.37) ng/mL CK-MB (CK-2) Rel Index 0.6 L (1.5-5.0) % Troponin I < 0.012 (0.01-0.034) ng/mL B-Natriuretic Peptide (<100) Total Protein 8.2 (6.3-8.2) g/dL Albumin 4.0 (3.5-5.0) g/dL Globulin 4.2 H (1.7-4.1) g/dL Albumin/Globulin Ratio 1.0 (1.0-2.8) Lipase 53 (23-300) U/L Procalcitonin (<0.5) ng/mL 05/07/18 05/07/18 Range/Units 15:30 15:30 WBC (4.5-11.0) X10^3/uL RBC (4.0-5.2) X10^6/uL Hgb (12.0-16.0) g/dL Hct (36-46) % MCV (80-100) fL MCH (26-34) PG MCHC (30-36) % RDW (11.6-14.8) % Plt Count (150-400) X10^3/uL Neut % (Auto) (50-75) % Lymph % (Auto) (25-40) % Cotton % (Auto) (3-14) % Eos % (Auto) (2-4) % Baso % (Auto) (0-2) % Neut # (Auto) (5394-1857) /uL Lymph # (Auto) (0185-6359) /uL Cotton # (Auto) (0-900) /uL Eos # (Auto) (0-450) /uL Baso # (Auto) (0-100) /uL PT (10.1-12.7) SECONDS INR (0.9-1.3) APTT (26.4-36.2) SECONDS Sodium (137-145) mmol/L Potassium (3.4-5.1) mmol/L Chloride (98-107) mmol/L Carbon Dioxide (22-32) mmol/L BUN (7-17) mg/dL Creatinine (0.52-1.04) mg/dL Estimated GFR (>60) mL/min BUN/Creatinine Ratio (6-22) Glucose (80-110) mg/dL Calcium (8.4-10.2) mg/dL Total Bilirubin (0.2-1.3) mg/dL AST (14-36) IU/L ALT (9-52) IU/L Alkaline Phosphatase (38-126) U/L Total Creatine Kinase (30-135) U/L CK-MB (CK-2) (<2.37) ng/mL CK-MB (CK-2) Rel Index (1.5-5.0) % Troponin I (0.01-0.034) ng/mL B-Natriuretic Peptide 414 H (<100) Total Protein (6.3-8.2) g/dL Albumin (3.5-5.0) g/dL Globulin (1.7-4.1) g/dL Albumin/Globulin Ratio (1.0-2.8) Lipase (23-300) U/L Procalcitonin < 0.05 (<0.5) ng/mL Imaging Data Chest x-ray: Radiologist's impression: Eboni Huerta 62 F 1955 [place] [id number] XRay Report Signed Patient: Eboni Huerta CMR#: [id number] : [id number]:[id number] Age/Sex: 62 / FDate of Service: 05/07/18 Loc: ED Accession Number: [id number] Procedure: XR chest 2V Ordering Provider: Rayna Polo D.O. PROCEDURE: XR CHEST 2V INDICATIONS: shortness of air TECHNIQUE: 2 views of the chest were acquired. COMPARISON: [facility], , XR CHEST 1V, 04/10/2018, 19:21. FINDINGS: Surgical changes and devices: Sternal wires consistent with previous bypass procedure. Lungs and pleura: There is mild appearance of hazy opacities within the bases as well as more focal opacity overlying the right middle lobe. Mediastinum: Mediastinal contours are normal. Heart size is enlarged. Bones and chest wall: No suspicious bony abnormalities. Soft tissues appear unremarkable. IMPRESSION: Hazy opacities within the bases possibly representing dependent edema. However, given focal area of opacity overlying the right middle lobe developing areas of atelectasis and/or air space disease such as pneumonia cannot be excluded. Recommend interval followup to document resolution. Dictated by: Jessica Monzon M.D. on 05/07/2018 at 16:52 Approved by: Jessica Monzon M.D. on 05/07/2018 at 16:53 bilateral lower extremity dvt US: Radiologist's impression: prelim + for popliteal on left. ECG Data Attestation: I personally reviewed and interpreted this ECG as follows: Prior ECG tracings: not available for review Interpretation: Sinus rhythm with a rate 82 P are interval 171, QRS of 104 and QTC of 395. No ST elevation. Flattening of T-waves in the lateral leads. Possible T-wave inversion in V2 V3. MDM Narrative Medical decision making narrative: Patient does have elevated BNP troponin is normal. Patient's chest x-ray shows maybe some pulmonary edema possibly infection although procalcitonin is negative. White count is elevated from recent admission. Patient has significant anxiety and claustrophobia and is adamant that she cannot do a PET scan even with Ativan IV. When she lays flat she does desat some so it is felt that she can't tolerate conscious sedation. On her last hospitalization there had been discussion of taking her to the OR to completely sedate her to get a CAT scan. I did not feel that this was appropriate through the emergency department today. We did get bilateral lower extremity DVT ultrasound which did show a left popliteal on the prelim. I spoke with Dr. Barron from [facility]' he felt Lasix was appropriate. This was before the DVT study had returned. I spoke with Dr. Daniel the patient's CVT surgeon. He felt that treating patient for suspected PE in light of her DVT was appropriate with Lovenox, and having patient be bridged to Coumadin as well as continuing Lasix 40 mg once daily or 20 mg b.i.d. per provider preference. Neither Dr. Barron nor Dr. Banegas patient needed to be transferred at this time to [facility]. Was recommended patient have an echo in the next 24 hours. Discussed with patient she is comfortable with this plan. Spoke with Lauro Pendleton who is on for the hospitalist service and he accepts. Critical Care Time Critical Care Time: Yes Total Critical Care Time: 90 Attestation: The high probability of a clinically significant, sudden or life threatening deterioration of the [cardiac/pulm] system(s) required my full and direct attention, intervention and personal management. The aggregate critical care time was [90] minutes. This time is in addition to time spent performing reported procedures but includes the following: [x] Data Review and interpretation [x] Patient assessment and monitoring of vital signs [x] Documentation [x] Medication orders and management Discharge Plan Departure Patient Disposition: Admitted as Observation Clinical Impression: STOKES (dyspnea on exertion), H/O aortic valve replacement, Suspected pulmonary embolism CHF (congestive heart failure) Qualifiers: Heart failure chronicity: acute DVT (deep venous thrombosis) Qualifiers: DVT location: lower extremity
[2018-05-07 15:46] LABS: Add Manual Diff / Slide Review NO; Basophils Absolute Auto 0 /uL (0-100); Basophils Percent Auto 0.4 % (0-2); Eosinophils Absolute Auto 400 /uL (0-450); Eosinophils Percent Auto 3.8 % (2-4); Hematocrit 34.5 % (36-46); Hemoglobin 11.2 g/dL (12.0-16.0); Lymphocytes Absolute Auto 1100 /uL (1100-4500); Lymphocytes Percent Auto 10.1 % (25-40); Mean Corpuscular HGB Conc 32.5 % (30-36); Mean Corpuscular Hemoglobin 26.3 PG (26-34); Mean Corpuscular Volume 80.9 fL (80-100); Monocytes Absolute Auto 800 /uL (0-900); Monocytes Percent Auto 7.5 % (3-14); Neutrophils Absolute Auto 8700 /uL (1500-7000); Neutrophils Percent Auto 78.2 % (50-75); Platelet Count 425 X10^3/uL (150-400); Red Blood Cell Count 4.26 X10^6/uL (4.0-5.2); Red Cell Distribution Width 15.1 % (11.6-14.8); White Blood Cell Count 11.1 X10^3/uL (4.5-11.0)
[2018-05-07 15:54] LABS: INR 1.3 (0.9-1.3); Prothrombin Time 15.5 SECONDS (10.1-12.7)
[2018-05-07 15:57] LABS: PTT Partial Thromboplastin Tim 27 SECONDS (26.4-36.2)
[2018-05-07 16:28] LABS: Alanine Aminotransferase 26 IU/L (9-52); Alkaline Phosphatase 70 U/L (38-126); Aspartate Aminotransferase 29 IU/L (14-36); BUN Creatinine Ratio 12.5 (6-22); Bilirubin Total 0.5 mg/dL (0.2-1.3); Blood Urea Nitrogen 10 mg/dL (7-17); Carbon Dioxide 24 mmol/L (22-32); Chloride 101 mmol/L (98-107); Creatine Kinase 199 U/L (30-135); Estimated Glomerular Filt Rate > 60.0 mL/min (>60); Globulin 4.2 g/dL (1.7-4.1); Glucose 111 mg/dL (80-110); Lipase 53 U/L (23-300); Sodium 136 mmol/L (137-145); Total Protein 8.2 g/dL (6.3-8.2)
[2018-05-07 16:29] LABS: HEMOLYSIS 55 (0-50)
--- NOTE | 2018-05-07 16:34 | ED_ITS ---
HPI - SOB/Dyspnea General Chief Complaint: Shortness of Breath/Dyspnea Stated Complaint: SOB Time Seen by Provider: 05/07/18 15:41 Source: patient Mode of arrival: ambulatory Limitations: no limitations History of Present Illness 62-year-old female comes to the emergency department with complaint of new worsening shortness of breath. Patient states she was diagnosed with influenza a on April 10, 2018 as well as pneumonia. She had echo the following day. She has a known bicuspid aorta but was worsening. She was transferred to [facility]. She was discharged home but because of her worsening aortic valve she was admitted on 04/26 for aortic valve replacement. She has a bovine valve. It was open surgery. She was discharged on 04/30. She has had normal healing with normal aches and pains and mild shortness of breath. In the last day she has had new pain kind of on the right side underneath the breasts, pain with inspiration that is much worse. She finds that if she leans forward it is significantly worse. Patient has not been coughing up any blood. She has had some mild cough but no major changes. Her oxygen saturation has been doing very well she has been checking it at home. She gets very short of breath with exertion she can only go 5 or 6 steps. This is much worse than when she left the hospital. She has not any fevers, she denies any abdominal pain, no nausea no vomiting no diarrhea or constipation. She has been taking metoprolol 12.5 mg b.i.d. along with 81 mg aspirin. She finished her last dose of Lasix today. Otherwise she was not a lot of medications before. She has been taking Flexeril. She has had history of cholecystectomy and hysterectomy. Related Data Home Medications Medication Instructions Recorded Confirmed prednisolone acetate [Omnipred] 1 drp OU BEDTIME #0 12/02/15 04/11/18 prednisolone acetate 1 drp EYE-BOTH BEDTIME 04/11/18 04/11/18 Previous Rx's Medication Instructions Recorded hydrocodone 5 mg-acetaminophen 325 1 tab PO BEDTIME #20 tab 04/03/18 mg tablet acetaminophen 650 mg PO Q4HR PRN #1 tab 04/11/18 albuterol sulfate 2.5 mg INH NOW PRN #1 ml 04/11/18 benzocaine-menthol [Cepacol Sore 1 ea PO Q4HR PRN #1 ea 04/11/18 Throat (erin-men)] benzonatate 100 mg PO TID PRN #1 cap 04/11/18 enoxaparin [Lovenox] 100 mg SUBCUT BID #1 ml 04/11/18 ipratropium-albuterol 3 ml INH RTQ4HR #1 ml 04/11/18 levofloxacin 750 mg PO DAILY #1 tab 04/11/18 oseltamivir [Tamiflu] 75 mg PO BID #1 cap 04/11/18 promethazine [Phenadoz] 12.5 mg [place] Q6HR PRN #1 ea 04/11/18 pseudoephedrine HCl 30 mg PO Q6HR PRN #1 tab 04/11/18 Allergies Allergy/AdvReac Type Severity Reaction Status Date / Time diphenhydramine Allergy Severe Vicious Verified 04/10/18 19:07 [From BENADRYL] nightmares codeine [CODEINE] AdvReac Mild ITCHING Verified 04/10/18 19:07 meperidine [MEPERIDINE] AdvReac Mild LOCAL Verified 04/10/18 19:07 REACTION TO IV USE oxycodone [OXYCODONE] AdvReac Mild HEADACHE Verified 04/10/18 19:07 Review of Systems Review of Systems ROS Unobtainable: All systems reviewed & are unremarkable except as noted in HPI and below Constitutional Denies chills, Denies fever(s), Denies lethargy and Denies weakness Cardiovascular Reports chest pain, Denies diaphoresis, Denies syncope, Denies rapid heart rate, Denies edema, Denies irregular heart rhythm, Denies lightheadedness, Reports palpitations, Reports dyspnea, Reports dyspnea on exertion and Denies orthopnea Respiratory Denies change in phlegm color, Denies chest congestion, Reports cough, Denies hemoptysis, Denies excessive phlegm production, Reports pain on inspiration, Reports pain with cough, Reports dyspnea, Reports dyspnea on exertion and Denies wheezing Gastrointestinal Gastrointestinal: Denies abdominal pain, Denies change in bowel habits, Denies diarrhea, Denies nausea and Denies vomiting Genitourinary Denies other (No urinary symptoms) Musculoskeletal Denies back pain Integumentary/Breasts Reports other (Healing incision) Neurologic Denies syncope and Denies weakness Endocrine Reports palpitations Allergic/Immunologic Denies wheezing [facility] Medical History Bicuspid aortic valve (Acute) Hypertension (Acute) Menieres syndrome (Acute) Migraines (Acute) Raynauds phenomenon (Acute) Surgical History Aortic valve replaced (Acute) Status post appendectomy Status post hysterectomy Status post laparoscopic cholecystectomy Social History Smoking Status: Never smoker Social History Smoking Status: Never smoker Exam Narrative Exam Narrative: GENERAL: Alert and oriented x three, obese, well-appearing female in mild distress. HEENT: Head normocephalic, atraumatic, EOMI, pupils reactive, face symmetric, moist mucous membranes NECK: Supple, full range of motion CARDIOVASCULAR: Regular rate and rhythm without murmurs, rubs or gallops. No JVD. No edema bilateral lower extremities. chest is nontender underneath the right breast. No rash or skin changes. Patient has midline incision has some slight erythema that appears consistent with healing and appears to be healing well. There is no signs of dehiscence. RESPIRATORY: Breath sounds equal bilaterally, no wheezes rales or rhonchi. No tachypnea. No accessory muscle use. Speaks in full sentences but slightly out of breath by the end. ABDOMEN: Soft, nontender. Normoactive bowel sounds all 4 quadrants. No guarding or rebound, rigidity, no mass : No CVA tenderness EXTREMITIES: Normal range of motion, no clubbing or edema. Neurovascularly intact. 2+ pulses bilateral lower extremities. Patient does not have any increase in circumference and left versus right lower extremity. NEUROLOGICAL: Cranial nerves II through XII grossly intact. Moving all extremities SKIN: Warm, dry, no petechiae, no rashes or lesions. Initial Vital Signs Initial Vital Signs: Vital Signs Temperature 98.4 F 05/07/18 15:21 Pulse Rate 84 05/07/18 15:21 Respiratory Rate 22 05/07/18 15:21 Blood Pressure 154/93 H 05/07/18 15:21 Pulse Oximetry 97 05/07/18 15:21 Course Orders Ordered: ED Orders 04/02/19 15:16 XR chest 2V Stat 05/07/18 15:30 B Type Natriuretic Peptide Stat Complete Blood Count AUTO DIFF Stat Comprehensive Metabolic Panel Stat Lipase Stat Partial Thromboplastin Time Stat Procalcitonin Stat Prothrombin Time INR Stat Troponin & CK Cardiac Panel Stat 05/07/18 15:32 EKG-12 Lead Stat 05/07/18 16:28 CT angio chest PE protocol Stat 05/07/18 18:18 US periph venous low extrem bi Stat Discontinued Medications Hydrocodone Bitart/Acetaminophen ([place] 5/325) 1 tab PO NOW ONE Stop: 05/07/18 18:40 Last Admin: 05/07/18 18:46 Dose: 1 tab Enoxaparin Sodium (Lovenox) 100 mg 1 mg/kg (100 mg) SUBCUT NOW ONE Stop: 05/07/18 19:12 Last Admin: 05/07/18 19:28 Dose: Not Given Enoxaparin Sodium (Lovenox) 100 mg 1 mg/kg (100 mg) SUBCUT NOW ONE Stop: 05/07/18 19:31 Last Admin: 05/07/18 19:27 Dose: 100 mg Furosemide (Lasix) 60 mg IV NOW ONE Stop: 05/07/18 18:57 Last Admin: 05/07/18 19:19 Dose: Not Given Furosemide (Lasix) 40 mg IV NOW ONE Stop: 05/07/18 19:17 Last Admin: 05/07/18 19:28 Dose: 40 mg Vital Signs - 8 hr 05/07/18 15:21 05/07/18 17:05 05/07/18 17:32 Temperature 98.4 F Pulse Rate 84 79 78 Respiratory Rate 22 22 21 Blood Pressure 154/93 H Blood Pressure [Left Arm] 144/66 H 148/74 H Pulse Oximetry 97 100 100 05/07/18 18:30 05/07/18 19:14 Temperature 98.4 F Pulse Rate 81 81 Respiratory Rate 25 H 25 H Blood Pressure 154/93 H Blood Pressure [Left Arm] 148/64 H Pulse Oximetry 90 L 90 L MDM - SOB/Dyspnea Lab Data Attestation: I reviewed the patient's lab results. Result diagrams: 05/07/18 15:30 05/07/18 15:30 Lab Results 05/07/18 05/07/18 05/07/18 Range/Units 15:30 15:30 15:30 WBC 11.1 H (4.5-11.0) X10^3/uL RBC 4.26 (4.0-5.2) X10^6/uL Hgb 11.2 L (12.0-16.0) g/dL Hct 34.5 L (36-46) % MCV 80.9 (80-100) fL MCH 26.3 (26-34) PG MCHC 32.5 (30-36) % RDW 15.1 H (11.6-14.8) % Plt Count 425 H (150-400) X10^3/uL Neut % (Auto) 78.2 H (50-75) % Lymph % (Auto) 10.1 L (25-40) % [place] % (Auto) 7.5 (3-14) % Eos % (Auto) 3.8 (2-4) % Baso % (Auto) 0.4 (0-2) % Neut # (Auto) 8700 H (7616-4208) /uL Lymph # (Auto) 1100 (6857-1498) /uL [place] # (Auto) 800 (0-900) /uL Eos # (Auto) 400 (0-450) /uL Baso # (Auto) 0 (0-100) /uL PT 15.5 H (10.1-12.7) SECONDS INR 1.3 (0.9-1.3) APTT 27 D (26.4-36.2) SECONDS Sodium 136 L (137-145) mmol/L Potassium 4.0 (3.4-5.1) mmol/L Chloride 101 (98-107) mmol/L Carbon Dioxide 24 (22-32) mmol/L BUN 10 (7-17) mg/dL Creatinine 0.80 (0.52-1.04) mg/dL Estimated GFR > 60.0 (>60) mL/min BUN/Creatinine Ratio 12.5 (6-22) Glucose 111 H (80-110) mg/dL Calcium 9.0 (8.4-10.2) mg/dL Total Bilirubin 0.5 (0.2-1.3) mg/dL AST 29 (14-36) IU/L ALT 26 (9-52) IU/L Alkaline Phosphatase 70 (38-126) U/L Total Creatine Kinase 199 H (30-135) U/L CK-MB (CK-2) 1.16 (<2.37) ng/mL CK-MB (CK-2) Rel Index 0.6 L (1.5-5.0) % Troponin I < 0.012 (0.01-0.034) ng/mL B-Natriuretic Peptide (<100) Total Protein 8.2 (6.3-8.2) g/dL Albumin 4.0 (3.5-5.0) g/dL Globulin 4.2 H (1.7-4.1) g/dL Albumin/Globulin Ratio 1.0 (1.0-2.8) Lipase 53 (23-300) U/L Procalcitonin (<0.5) ng/mL 05/07/18 05/07/18 Range/Units 15:30 15:30 WBC (4.5-11.0) X10^3/uL RBC (4.0-5.2) X10^6/uL Hgb (12.0-16.0) g/dL Hct (36-46) % MCV (80-100) fL MCH (26-34) PG MCHC (30-36) % RDW (11.6-14.8) % Plt Count (150-400) X10^3/uL Neut % (Auto) (50-75) % Lymph % (Auto) (25-40) % [place] % (Auto) (3-14) % Eos % (Auto) (2-4) % Baso % (Auto) (0-2) % Neut # (Auto) (8601-1931) /uL Lymph # (Auto) (5366-0015) /uL [place] # (Auto) (0-900) /uL Eos # (Auto) (0-450) /uL Baso # (Auto) (0-100) /uL PT (10.1-12.7) SECONDS INR (0.9-1.3) APTT (26.4-36.2) SECONDS Sodium (137-145) mmol/L Potassium (3.4-5.1) mmol/L Chloride (98-107) mmol/L Carbon Dioxide (22-32) mmol/L BUN (7-17) mg/dL Creatinine (0.52-1.04) mg/dL Estimated GFR (>60) mL/min BUN/Creatinine Ratio (6-22) Glucose (80-110) mg/dL Calcium (8.4-10.2) mg/dL Total Bilirubin (0.2-1.3) mg/dL AST (14-36) IU/L ALT (9-52) IU/L Alkaline Phosphatase (38-126) U/L Total Creatine Kinase (30-135) U/L CK-MB (CK-2) (<2.37) ng/mL CK-MB (CK-2) Rel Index (1.5-5.0) % Troponin I (0.01-0.034) ng/mL B-Natriuretic Peptide 414 H (<100) Total Protein (6.3-8.2) g/dL Albumin (3.5-5.0) g/dL Globulin (1.7-4.1) g/dL Albumin/Globulin Ratio (1.0-2.8) Lipase (23-300) U/L Procalcitonin < 0.05 (<0.5) ng/mL Imaging Data Chest x-ray: Radiologist's impression: Eboni Huerta 62 F 1955 [place] [address] XRay Report Signed Patient: Eboni Huerta CMR#: [id number] : [id number]:[id number] Age/Sex: 62 / FDate of Service: 05/07/18 Loc: ED Accession Number: [id number] Procedure: XR chest 2V Ordering Provider: Rayna Polo D.O. PROCEDURE: XR CHEST 2V INDICATIONS: shortness of air TECHNIQUE: 2 views of the chest were acquired. COMPARISON: [facility], , XR CHEST 1V, 04/10/2018, 19:21. FINDINGS: Surgical changes and devices: Sternal wires consistent with previous bypass procedure. Lungs and pleura: There is mild appearance of hazy opacities within the bases as well as more focal opacity overlying the right middle lobe. Mediastinum: Mediastinal contours are normal. Heart size is enlarged. Bones and chest wall: No suspicious bony abnormalities. Soft tissues appear unremarkable. IMPRESSION: Hazy opacities within the bases possibly representing dependent edema. However, given focal area of opacity overlying the right middle lobe developing areas of atelectasis and/or air space disease such as pneumonia cannot be excluded. Recommend interval followup to document resolution. Dictated by: Jessica Monzon M.D. on 05/07/2018 at 16:52 Approved by: Jessica Monzon M.D. on 05/07/2018 at 16:53 bilateral lower extremity dvt US: Radiologist's impression: prelim + for popliteal on left. ECG Data Attestation: I personally reviewed and interpreted this ECG as follows: Prior ECG tracings: not available for review Interpretation: Sinus rhythm with a rate 82 P are interval 171, QRS of 104 and QTC of 395. No ST elevation. Flattening of T-waves in the lateral leads. Possible T-wave inversion in V2 V3. MDM Narrative Medical decision making narrative: Patient does have elevated BNP troponin is normal. Patient's chest x-ray shows maybe some pulmonary edema possibly infection although procalcitonin is negative. White count is elevated from recent admission. Patient has significant anxiety and claustrophobia and is adamant that she cannot do a PET scan even with Ativan IV. When she lays flat she does desat some so it is felt that she can't tolerate conscious sedation. On her last hospitalization there had been discussion of taking her to the OR to completely sedate her to get a CAT scan. I did not feel that this was appropriate through the emergency department today. We did get bilateral lower extremity DVT ultrasound which did show a left popliteal on the prelim. I spoke with Dr. Barron from [facility] at [place]' he felt Lasix was appropriate. This was before the DVT study had returned. I spoke with Dr. Daniel the patient's CVT surgeon. He felt that treating patient for suspected PE in light of her DVT was appropriate with Lovenox, and having patient be bridged to Coumadin as well as continuing Lasix 40 mg once daily or 20 mg b.i.d. per provider preference. Neither Dr. Barron nor Dr. Banegas patient needed to be transferred at this time to [facility]. Was recommended patient have an echo in the next 24 hours. Discussed with patient she is comfortable with this plan. Spoke with Lauro Pendleton who is on for the hospitalist service and he accepts. Critical Care Time Critical Care Time: Yes Total Critical Care Time: 90 Attestation: The high probability of a clinically significant, sudden or life threatening deterioration of the [cardiac/pulm] system(s) required my full and direct attention, intervention and personal management. The aggregate critical care time was [90] minutes. This time is in addition to time spent performing reported procedures but includes the following: [x] Data Review and interpretation [x] Patient assessment and monitoring of vital signs [x] Documentation [x] Medication orders and management Discharge Plan Departure Patient Disposition: Admitted as Observation Clinical Impression: STOKES (dyspnea on exertion), H/O aortic valve replacement, Suspected pulmonary embolism CHF (congestive heart failure) Qualifiers: Heart failure chronicity: acute DVT (deep venous thrombosis) Qualifiers: DVT location: lower extremity
[2018-05-07 16:40] LABS: Troponin I < 0.012 ng/mL (0.01-0.034)
[2018-05-07 16:44] LABS: CKMB % Relative Index 0.6 % (1.5-5.0); Creatine Kinase MB 1.16 ng/mL (<2.37)
[2018-05-07 17:17] LABS: B Type Natriuretic Peptide 414 (<100)
--- NOTE | 2018-05-07 18:00 | PC.NURSE ---
Patient states extremely claustrophobic. Cannot tolerate CT scanner for the ordered CT angio test unless we sedate her out cold. Provider aware.
--- NOTE | 2018-05-07 18:18 | DI.US.S_ITS ---
PROCEDURE: US PERIPH VENOUS LOW EXTREM BI INDICATIONS: SOB TECHNIQUE: Real-time imaging, as well as color and pulse Doppler interrogation, were performed of the deep veins of both legs from the inguinal ligament to the popliteal fossa. COMPARISON: None. FINDINGS: Right: The common femoral, femoral and popliteal veins are normally compressible, and free of intraluminal thrombus. Color and pulse Doppler demonstrate normal phasic intravascular flow. There is normal augmentation response to distal compression maneuver. Left: The common femoral, femoral veins are normally compressible, and free of intraluminal thrombus. Color and pulse Doppler demonstrate normal phasic intravascular flow. There is normal augmentation response to distal compression maneuver. Thrombus is present in the popliteal vein. IMPRESSION: Left popliteal deep venous thrombosis. Dictated by: Jessica Monzon M.D. on 05/07/2018 at 19:50 Approved by: Jessica Monzon M.D. on 05/07/2018 at 19:52
[2018-05-07] MEDS: HYDROCODONE/ACET 5/325 TABLET 1 TAB PO (18:46)
[2018-05-07 18:52] LABS: Procalcitonin < 0.05 ng/mL (<0.5)
[2018-05-07] MEDS: ENOXAPARIN 100 MG/ML SYRINGE SUBCUT (19:27)
[2018-05-07] MEDS: FUROSEMIDE 40 MG/4 ML VIAL IV (19:28)
[2018-05-08] VITALS (11 sets, daily range): BP systolic 119–145; BP diastolic 69–78; PULSE 77–94; RESP 15–20; TEMP 36.6–37.7; O2SAT 90–100; BMI 37.0
--- NOTE | 2018-05-08 01:05 | PC.NURSE ---
2300- Pt admit for inc SOB, found to have L popiteal DVT. CABG 2 wks ago; sternal incision PEGGER pt states she has to wash this each day. L leg warm; pulses palpable; pt to remain in bed or using BSC no ambulation at this time. Cont SpO2 in place w/ sats in mis 90's on 2L. Tele reading SR; VSS. 0245- Pt having episodes of coughing. Asking for PO meds to help with pain at sternal incision. PO norco given to pt. 0545- Using BSC to void. No pain w/ movement.
--- NOTE | 2018-05-08 01:07 | PM.HP.1 ---
History of Present Illness Date Patient Seen: 05/07/18 Time Patient Seen: 20:25 Chief complaint: SOB Narrative: Ms Eboni Huerta is a 62-year-old female with a history of a bicuspid aortic valve status post aortic valve replacement, Meniere's disease, migraines and Raynaud syndrome who presents to the ER with shortness of breath and dyspnea on exertion. On 04/10/2018 patient was diagnosed with the flu and pneumonia and had an echo cardiogram done which found worsening aortic valve function. The patient had a bovine aortic valve replacement on 04/26/2018. The patient also had undergone a cardiac catheterization that time which showed clean coronary arteries. The patient did well postoperatively and was discharged without anticoagulation. The patient states she developed right anterior lateral chest pain on Sunday and then shortness of breath last night that was progressive throughout today prompting the patient to present to the ER for evaluation. The pain is described as pleuritic and is worse when leaning forward or sitting with her legs up and better sitting with her leg stand or standing. She has had associated palpitations but denies fevers or chills, cough or hemoptysis, nausea or vomiting. She has had no abdominal pain and denies constipation or diarrhea. A venous ultrasound is completed in the ER which finds the left popliteal DVT. A CT angio was not completed. Twelve lead EKG was completed which demonstrates a sinus rhythm with a ventricular rate of 82 without ectopy or block with diffuse ST and T-wave abnormalities. On lab analysis her CBC has white count of 11.1, hemoglobin of 11.2 and hematocrit 34.5 with platelets of 425. She had elevated total CK of 199 with normal MB and a low index. Her troponin is negative at 0.012. Her chemistries are essentially unremarkable with a nonfasting glucose of 111. Patient is admitted to the hospital for DVT and pulmonary embolism. Patient History Medical History (Updated 05/08/18 @ 01:34 by CRESENCIO Hugo) Fuchs' corneal dystrophy (Acute) Bicuspid aortic valve (Acute) Hypertension (Acute) Menieres syndrome (Acute) Migraines (Acute) Raynauds phenomenon (Acute) Surgical History (Updated 05/08/18 @ 01:34 by CRESENCIO Hugo) Aortic valve replaced (Acute) History of corneal transplant (Acute) History of parotidectomy (Acute) Status post appendectomy Status post hysterectomy Status post laparoscopic cholecystectomy Family History Father No problems noted. Mother No problems noted. Brother Hodgkins disease Social History Smoking Status: Never smoker alcohol intake: current Family & Social History Family History Father No problems noted. Mother No problems noted. Brother Hodgkins disease Social History: Prior Living Arrangements House Safety & Behavioral: Feels Safe in Current Yes Environment Been Physically Hurt or No Threatened By a Person Suicidal Ideation Description None Suicide Plan Description No Plan Tobacco & Substance use: Smoking Status Never smoker alcohol intake current alcohol intake frequency holiday/special occasion Substance Use Type does not use Comment: The patient lives in a single family sitting level home by herself and has been for 14 years. Her parents are both she has 1 sister and 1 brother. 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 Advanced directives: The patient wishes to be a FULL CODE. She designates her son Mathew Mackey to be her surrogate decision maker. Meds Home Medications Medication Instructions Recorded Confirmed Type prednisolone acetate [Omnipred] 1 drp OU BEDTIME #0 12/02/15 05/07/18 History hydrocodone 5 mg-acetaminophen 325 1 tab PO BEDTIME #20 tab 04/03/18 05/07/18 Rx mg tablet acetaminophen 650 mg PO Q4HR PRN #1 tab 04/11/18 05/07/18 Rx ipratropium-albuterol 3 ml INH RTQ4HR #1 ml 04/11/18 05/07/18 Rx prednisolone acetate 1 drp EYE-BOTH BEDTIME 04/11/18 05/07/18 History aspirin 81 mg PO DAILY 05/07/18 05/07/18 History cyclobenzaprine 5 mg PO BEDTIME PRN 05/07/18 05/07/18 History metoprolol tartrate 12.5 mg PO BID 05/07/18 05/07/18 History Allergies Allergy/AdvReac Type Severity Reaction Status Date / Time diphenhydramine Allergy Severe Vicious Verified 04/10/18 19:07 [From BENADRYL] nightmares codeine [CODEINE] AdvReac Mild ITCHING Verified 04/10/18 19:07 meperidine [MEPERIDINE] AdvReac Mild LOCAL Verified 04/10/18 19:07 REACTION TO IV USE oxycodone [OXYCODONE] AdvReac Mild HEADACHE Verified 04/10/18 19:07 Review of Systems Review of Systems All systems reviewed & are unremarkable except as noted in HPI and below Exam Vital Signs (past 8 hours): - 05/07/18 17:32 05/07/18 18:30 05/07/18 19:14 Temperature 98.4 F Pulse Rate 78 81 81 Respiratory Rate 21 25 H 25 H Blood Pressure 154/93 H Blood Pressure [Left Arm] 148/74 H 148/64 H Pulse Oximetry 100 90 L 90 L 05/07/18 20:02 05/07/18 20:30 05/07/18 20:53 Temperature 98.1 F Pulse Rate 85 89 Respiratory Rate 23 18 Blood Pressure 144/86 H Blood Pressure [Left Arm] 131/57 L Pulse Oximetry 98 96 98 05/08/18 00:13 Temperature 98.5 F Pulse Rate 84 Respiratory Rate 15 Blood Pressure 120/72 Blood Pressure [Left Arm] Pulse Oximetry 98 Oxygen Delivery Method Nasal Cannula Oxygen Flow Rate 2 Narrative Exam Narrative: GENERAL APPEARANCE: well developed, well nourished, uncomfortable and mildly anxious appearing HEAD: Normocephalic, atraumatic, no scalp lesions. EYES: pupils equal, round, reactive to light and accommodation, sclera non-icteric, extraocular movement intact . EARS: normal external structures, no ear pain NOSE: sinuses non tender to percussion, no rhinorrhea ORAL CAVITY: mucosa moist without lesions or exudate, palate normal, tongue in midline. THROAT: normal, no erythema, no exudate, pharynx normal, uvula midline. NECK/THYROID: neck supple, no jugular venous distention, no carotid bruit, no thyromegaly, trachea midline. LYMPH NODES: no cervical or supraclavicular lymphadenopathy. SKIN: warm and dry, no suspicious lesions, no rashes, good turgor. HEART: regular rate and rhythm, S1-S2 without murmur, rubs, gallops, brisk capillary refill, no edema LUNGS: Slightly diminished breath sounds bilaterally, low tidal volume related to pain, no coarseness crackles or wheezing, no cough present CHEST: Healing median sternotomy wound without signs of infection, symmetrical movement, no accessory muscle use ABDOMEN: Soft, no distention, no epigastric or abdominal tenderness on palpation, no guarding or peritoneal signs, no organomegaly, no flank or suprapubic tenderness BACK: Normal curvature, nontender to palpation EXTREMITIES: moves all extremities, strength is 5/5 and symmetrical, 1+ dorsalis pedis pulses, brisk capillary refill NEUROLOGIC: AAO x4, no focal neurologic deficits, cranial nerves II-XII grossly intact , motor strength normal upper and lower extremities, sensory exam intact to light touch, hearing grossly normal to speech. PSYCH: alert, anxious, cognitive function intact, good eye contact Objective Labs Result Diagrams: 05/07/18 15:30 05/07/18 15:30 Labs: Laboratory Results - last 24 hr 05/07/18 05/07/18 05/07/18 15:30 15:30 15:30 WBC 11.1 H RBC 4.26 Hgb 11.2 L Hct 34.5 L MCV 80.9 MCH 26.3 MCHC 32.5 RDW 15.1 H Plt Count 425 H Neut % (Auto) 78.2 H Lymph % (Auto) 10.1 L [place] % (Auto) 7.5 Eos % (Auto) 3.8 Baso % (Auto) 0.4 Neut # (Auto) 8700 H Lymph # (Auto) 1100 [place] # (Auto) 800 Eos # (Auto) 400 Baso # (Auto) 0 PT 15.5 H INR 1.3 APTT 27 D Sodium 136 L Potassium 4.0 Chloride 101 Carbon Dioxide 24 BUN 10 Creatinine 0.80 Estimated GFR > 60.0 BUN/Creatinine Ratio 12.5 Glucose 111 H Calcium 9.0 Total Bilirubin 0.5 AST 29 ALT 26 Alkaline Phosphatase 70 Total Creatine Kinase 199 H CK-MB (CK-2) 1.16 CK-MB (CK-2) Rel Index 0.6 L Troponin I < 0.012 B-Natriuretic Peptide Total Protein 8.2 Albumin 4.0 Globulin 4.2 H Albumin/Globulin Ratio 1.0 Lipase 53 Procalcitonin 05/07/18 05/07/18 15:30 15:30 WBC RBC Hgb Hct MCV MCH MCHC RDW Plt Count Neut % (Auto) Lymph % (Auto) [place] % (Auto) Eos % (Auto) Baso % (Auto) Neut # (Auto) Lymph # (Auto) [place] # (Auto) Eos # (Auto) Baso # (Auto) PT INR APTT Sodium Potassium Chloride Carbon Dioxide BUN Creatinine Estimated GFR BUN/Creatinine Ratio Glucose Calcium Total Bilirubin AST ALT Alkaline Phosphatase Total Creatine Kinase CK-MB (CK-2) CK-MB (CK-2) Rel Index Troponin I B-Natriuretic Peptide 414 H Total Protein Albumin Globulin Albumin/Globulin Ratio Lipase Procalcitonin < 0.05 Assessment & Plan Assessment & Plan narrative: Patient is admitted to the hospital with a left pot Teal DVT and right chest pain consistent with pulmonary embolism. 1. Deep vein thrombosis, present on admission, acute -patient without complaints of leg pain however has a left popliteal DVT on venous ultrasound -patient started on Lovenox 1 milligram/kilogram for total 100 mg twice daily. Patient will be transitioned to warfarin. -patient is bed rest at this time with bathroom privileges 2. Pulmonary embolism, present on admission, acute -related to deep vein thrombosis as above -PE diagnosis made based on clinical findings, CT angio not completed -patient complains of right anterior lateral chest pain that is pleuritic and positional, no cough or hemoptysis -dyspnea on exertion with over 5-10 steps. -breath sounds are diminished without coarseness or crackles -SpO2 90% on room air, 96-98% on 2 L nasal cannula -patient received 1 nebulizer treatment with improvement in respiratory call today. Duonebs ordered q.6 hours as needed -[place] 5/325 as needed for pain 3. Aortic valve replacement, active -patient with aortic valve replacement on 04/26/2018 -patient discharged without anticoagulation. -sternal wound healing cleanly without signs of infection, white count normal -patient has not yet started cardiac rehab, will have PT and OT evaluate and treat -[place] 5/325 as needed for pain 4. Meniere's disease, not present on admission, chronic -no complaints vertigo, will continue to monitor for symptoms 5. Raynaud syndrome, not present on admission, chronic -no complaints of pain or symptoms, will continue to monitor for symptoms The patient is admitted to the hospital due to severity of symptoms and risk for complications. The patient is admitted as an observation patient with expected length of stay to be less than 2 midnights.
[2018-05-08] MEDS: HYDROCODONE/ACET 5/325 TABLET 2 TAB PO (02:43)
[2018-05-08] MEDS: ALBUTEROL/IPRATROPIUM 3 ML AMPUL INH ×2 (03:41→20:02)
[2018-05-08 05:48] LABS: Add Manual Diff / Slide Review NO; Basophils Absolute Auto 100 /uL (0-100); Eosinophils Absolute Auto 500 /uL (0-450); Eosinophils Percent Auto 5.4 % (2-4); Hematocrit 29.9 % (36-46); Hemoglobin 10.2 g/dL (12.0-16.0); Lymphocytes Absolute Auto 1400 /uL (1100-4500); Lymphocytes Percent Auto 15.1 % (25-40); Mean Corpuscular Hemoglobin 27.3 PG (26-34); Mean Corpuscular Volume 80.3 fL (80-100); Monocytes Absolute Auto 700 /uL (0-900); Monocytes Percent Auto 7.6 % (3-14); Neutrophils Absolute Auto 6800 /uL (1500-7000); Neutrophils Percent Auto 70.9 % (50-75); Platelet Count 377 X10^3/uL (150-400); Red Blood Cell Count 3.73 X10^6/uL (4.0-5.2); Red Cell Distribution Width 15.2 % (11.6-14.8); White Blood Cell Count 9.5 X10^3/uL (4.5-11.0)
[2018-05-08 06:01] LABS: BUN Creatinine Ratio 11.3 (6-22); Blood Urea Nitrogen 9 mg/dL (7-17); Calcium 8.5 mg/dL (8.4-10.2); Carbon Dioxide 25 mmol/L (22-32); Chloride 100 mmol/L (98-107); Estimated Glomerular Filt Rate > 60.0 mL/min (>60); Glucose 167 mg/dL (80-110); HEMOLYSIS < 15 (0-50); Potassium 3.3 mmol/L (3.4-5.1); Sodium 134 mmol/L (137-145)
[2018-05-08] MEDS: METOPROLOL IR 25 MG TABLET 12.5 MG PO ×2 (08:18→20:59)
[2018-05-08] MEDS: POTASSIUM CHLORIDE 40 MEQ in SODIUM CHLORIDE 0.9% 500 ML 130 ML IV (08:19)
[2018-05-08] MEDS: ENOXAPARIN 100 MG/ML SYRINGE SUBCUT ×2 (08:19→20:58)
--- NOTE | 2018-05-08 08:45 | CM.DANOTE ---
Addendum entered by Twila Lopez R.N. 05/08/18 14:42: Dr. Devlin had care management look up Xarelto and Pradaxa, as far as cost. Enedelia had called pharmacy help line, and found out that Xarelto would be $40.00 a month, versus $250.00 with Pradaxa monthly. Updated Dr. Devlin. She stated that she was going to put her on Coumadin instead, here in hospital. Patient was requesting Coumadin as well. She stated that she will be trying to get a C.T. scan on patient, to determine how large the clot is, and if she will have to be transferred out. Original Note: DCP: Case received, EMR reviewed and met with patient. Introduced self and role. DCP template completed with information currently available. Patient is a 62 year old female who admitted yesterday evening to the care of the hospitalist team. PCP: ALIREZA Whyte. Payer: confirmed: [facility] Patient came to hospital via family vehicle due to shortness of breath. Patient has history of Bicuspid Aortic valve replacement, Menier's Disease. She also has history of worsening Aortic valve function. Patient holds diagnosis of DVT/Pulmonary embolism. Met with patient in room. Alert and oriented, pleasant. 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 She is independent, lives alone here in [place]. Confirmed that her PCP is Aparna Mayo. P: DCP to continue to follow. Patient should be able to return home when she is medically stable. Twila Lopez RN/Senior Writer
--- NOTE | 2018-05-08 09:53 | P.PN_ITS ---
Subjective Date Patient Seen: 05/08/18 Interval history: Eboni Huerta is a 62-year-old female with a past medical history significant for bicuspid aortic valve with severe critical aortic stenosis status post rec ent aortic valve replacement, Meniere's disease, migraines and Raynaud syndrome who presented for shortness of breath and dyspnea on exertion. The patient is resting in bed. She appears somewhat uncomfortable. She endorses right-sided pleuritic pain with deep inspiration, mild lightheaded and dizziness upon standing, and mild cough. She denies headache, chest pain, abdominal pain, nausea, vomiting, fever, chills, dysuria, diarrhea or constipation. She is voiding without difficulty. She is up ambulating minimally as predominantly on bed rest for next 24 hours while undergoing anticoagulation for blood clots. Exam Vital Signs (past 8 hours): - 05/08/18 03:41 05/08/18 04:05 05/08/18 08:00 Temperature 98.7 F 97.8 F Pulse Rate 87 84 Respiratory Rate 20 20 Blood Pressure 119/70 145/78 H Pulse Oximetry 96 92 95 05/08/18 09:02 05/08/18 09:03 Temperature Pulse Rate Respiratory Rate Blood Pressure Pulse Oximetry 96 90 L Oxygen Delivery Method Room Air Oxygen Flow Rate 0 Narrative Exam Narrative: General: Middle-aged female sitting in bed and in no acute distress, appears uncomfortable and chronically ill, well-developed, well-nourished, emotionally labile but appropriately interactive. HEENT: Normocephalic, atraumatic. External ears without defect. Pupils equal, round, and reactive to light. Anicteric sclerae, moist conjunctivae, and no lid lag. Oropharynx free of erythema and cobble stoning with moist mucosa. Nasal cannula in place on 3 L supplemental oxygen. Neck: Supple with full range of motion. No lymphadenopathy or thyromegaly. Cardiovascular: Heart sounds distant but appears regular rate and rhythm without murmurs rubs or gallops. Pulmonary: Decreased inspiration due to pain. Clear to auscultation bilaterally without wheeze, rhonchi or crackles. Normal use of accessory muscles. Abdomen: Soft, obese, bowel sounds present, nontender, nondistended. No hepatosplenomegaly or masses appreciated. Extremities: No clubbing or cyanosis, or edema. Skin: Normal temperature, turgor, and texture; no rash, ulcers, or subcutaneous nodules appreciated. Neurological: Cranial nerves grossly intact. Psychiatric: Depressed mood and normal affect. Emotionally labile. Alert and oriented to person, place, and time. Objective Labs Result Diagrams: 05/08/18 05:23 05/08/18 05:23 Labs: Laboratory Results - last 24 hr 05/07/18 05/07/18 05/07/18 15:30 15:30 15:30 WBC 11.1 H RBC 4.26 Hgb 11.2 L Hct 34.5 L MCV 80.9 MCH 26.3 MCHC 32.5 RDW 15.1 H Plt Count 425 H Neut % (Auto) 78.2 H Lymph % (Auto) 10.1 L [place] % (Auto) 7.5 Eos % (Auto) 3.8 Baso % (Auto) 0.4 Neut # (Auto) 8700 H Lymph # (Auto) 1100 [place] # (Auto) 800 Eos # (Auto) 400 Baso # (Auto) 0 PT 15.5 H INR 1.3 APTT 27 D Sodium 136 L Potassium 4.0 Chloride 101 Carbon Dioxide 24 BUN 10 Creatinine 0.80 Estimated GFR > 60.0 BUN/Creatinine Ratio 12.5 Glucose 111 H Calcium 9.0 Total Bilirubin 0.5 AST 29 ALT 26 Alkaline Phosphatase 70 Total Creatine Kinase 199 H CK-MB (CK-2) 1.16 CK-MB (CK-2) Rel Index 0.6 L Troponin I < 0.012 B-Natriuretic Peptide Total Protein 8.2 Albumin 4.0 Globulin 4.2 H Albumin/Globulin Ratio 1.0 Lipase 53 Procalcitonin 05/07/18 05/07/18 05/08/18 15:30 15:30 05:23 WBC 9.5 RBC 3.73 L Hgb 10.2 L Hct 29.9 L MCV 80.3 MCH 27.3 MCHC 34.0 RDW 15.2 H Plt Count 377 Neut % (Auto) 70.9 Lymph % (Auto) 15.1 L [place] % (Auto) 7.6 Eos % (Auto) 5.4 H Baso % (Auto) 1.0 Neut # (Auto) 6800 Lymph # (Auto) 1400 [place] # (Auto) 700 Eos # (Auto) 500 H Baso # (Auto) 100 PT INR APTT Sodium Potassium Chloride Carbon Dioxide BUN Creatinine Estimated GFR BUN/Creatinine Ratio Glucose Calcium Total Bilirubin AST ALT Alkaline Phosphatase Total Creatine Kinase CK-MB (CK-2) CK-MB (CK-2) Rel Index Troponin I B-Natriuretic Peptide 414 H Total Protein Albumin Globulin Albumin/Globulin Ratio Lipase Procalcitonin < 0.05 05/08/18 05:23 WBC RBC Hgb Hct MCV MCH MCHC RDW Plt Count Neut % (Auto) Lymph % (Auto) [place] % (Auto) Eos % (Auto) Baso % (Auto) Neut # (Auto) Lymph # (Auto) [place] # (Auto) Eos # (Auto) Baso # (Auto) PT INR APTT Sodium 134 L Potassium 3.3 L Chloride 100 Carbon Dioxide 25 BUN 9 Creatinine 0.80 Estimated GFR > 60.0 BUN/Creatinine Ratio 11.3 Glucose 167 H Calcium 8.5 Total Bilirubin AST ALT Alkaline Phosphatase Total Creatine Kinase CK-MB (CK-2) CK-MB (CK-2) Rel Index Troponin I B-Natriuretic Peptide Total Protein Albumin Globulin Albumin/Globulin Ratio Lipase Procalcitonin Assessment & Plan Assessment & Plan narrative: 1. Acute provoked DVT and presumed right-sided PE, present on admission. Active. -Unable to undergo CTA of chest to assess for PE due to severe claustrophobia to the extent patient would have to be heavily sedated and unconscious. Associated symptoms of pleuritic/positional right-sided chest pain, shortness of breath and exertional dyspnea, and lightheadedness. -Patient without complaints of leg pain, however, has a left popliteal DVT on venous ultrasound -Patient is bed rest at this time with bathroom privileges. Will start to ambulate after 24 hours of treatment. -Ordered hydrocodone 5/325 mg as needed for pain. -Ordered echocardiogram as there is concern for right ventricular overload and need for catheter directed thrombolysis. -Started therapeutic Lovenox 100 mg twice daily and will start warfarin 5 mg tonight at patient's request. Patient did not want NOAC due to personal preference. Check INR daily. 2. Recent aortic valve replacement. -Aortic valve replacement on 04/26/2018 and discharged without anticoagulation. -Sternal wound healing cleanly without signs of infection, white count normal. -Patient has not yet started cardiac rehab. Ordered PT and OT evaluation and treatment to start after 24 hours of anticoagulation -Ordered hydrocodone 5/325 mg as needed for pain. 3. Meniere's disease, chronic, present on admission. Stable. -Does not represent acute exacerbation. Will monitor for symptoms. 4. Raynaud syndrome, chronic, present on admission. Stable. -Inactive as there are no complaints of pain or symptoms. 5. Hyperlipidemia, chronic, present on admission. Stable. -Present since at least 2016. Lipid panel recently () repeated with cholesterol 228 and LDL 151. -Patient would benefit from a statin and again discussed and highly encouraged use with education provided. Disposition: Likely to discharge in several days depending upon echocardiogram and bridging treatment from Lovenox to warfarin.
--- NOTE | 2018-05-08 12:09 | PT.IPTN ---
Current Diagnoses Acute embolism and thrombosis of unspecified deep veins of unspecified lower extremity (05/07/18) Other specified symptoms and signs involving the circulatory and respiratory systems (05/07/18) Physical Therapy Treatment Note M3 PT-IP Subjective Start: 05/08/18 12:06 Freq: NEEDED Status: Active Protocol: Document 05/08/18 12:06 AB (Rec: 05/08/18 12:09 AB [id number]) Subjective Physical Therapy Visit Type Notes reviewed medical records/ doctor's note and pt hospitalized for pulmonary embolism and pt has bedrest with bathroom priveleges ordered but also has PT eval order for cardiac rehab. informed hospitalist during medical rounds and informed therapy that she is going to see pt first and determine appropriateness for PT intervention. will f/u with hospitalist prior to PT eval.
[2018-05-08] MEDS: HYDROCODONE/ACET 5/325 TABLET 1 TAB PO ×2 (13:20→19:10)
--- NOTE | 2018-05-08 13:20 | PT.IPTN ---
Current Diagnoses Acute embolism and thrombosis of unspecified deep veins of unspecified lower extremity (05/07/18) Other specified symptoms and signs involving the circulatory and respiratory systems (05/07/18) Physical Therapy Treatment Note M3 PT-IP Subjective Start: 05/08/18 12:06 Freq: NEEDED Status: Active Protocol: Document 05/08/18 13:19 AB (Rec: 05/08/18 13:19 AB [id number]) Subjective Physical Therapy Visit Type Notes followed up with Dr. Devlin and informed that PT on hold for today due to pt c/o dizziness when up and still awaiting echo procedure.
--- NOTE | 2018-05-08 13:34 | DI.ECHO.S_ITS ---
[facility]---------+ [facility] +---------+ : : [address] : : : : [id number] : : : : Phone: [phone]+ Echocardiogram Report + + :Name: FROILAN LOPES Study Date: 05/09/2018 Height: 64 in : :[facility] Weight: 216 lb : : Gender: Female BSA: 2.0 m2 : :: 1955 Age: 62 yrs BP: 141/77 mmHg: :Reason For Study: SOB : : Performed By: Dania Tidwell : :Referring: REYNOLD BLUNT : + + Interpretation Summary Technically difficult study. Comparison is made with the echocardiogram of 04-11-18. Patient is now post placement of bioprosthetic aortic valve. Information regarding the type of bioprosthetic valve is not provided although visually appears to be a TAVR valve. No evidence of aortic stenosis or paravalvular leak. LV systolic function is normal. The diastolic function is probably normal. PA pressures could not be determined. But there is no sign of right ventricular volume or pressure overload. Etiology of patient's shortness of breath is not clear based on this echo. Procedure: A two-dimensional transthoracic echocardiogram with color flow and Doppler was performed. The study quality was technically adequate. Comparison is made with the echocardiogram of 04-11-18. The patient was in normal sinus rhythm during the exam. Left Ventricle: The left ventricle is normal in size, wall thickness, and systolic function without any focal wall motion abnormalities. The ejection fraction is estimated to be 60-65%. Diastolic parameters suggest probable normal left ventricular diastolic function and normal filling pressures. Right Ventricle: The right ventricle grossly appears normal in size with probable normal systolic function. Atria: The left atrial size is normal. Right atrial size is normal. The interatrial septum is intact with no evidence for an atrial septal defect. Aortic Valve: There is a bioprosthetic aortic valve. The prosthetic aortic valve is well-seated. No aortic regurgitation is present. Tricuspid Valve: The tricuspid valve is normal in structure and function. There is a trace or physiologic amount of tricuspid regurgitation. The right ventricular systolic pressure is estimated to be at least 23 mmHg based on an estimated right atrial pressure of 3 mm Hg. Pulmonic Valve: The pulmonic valve is not well seen, but is grossly normal. There is trace pulmonic regurgitation. Great Vessels: The aortic root is normal size. The ascending aorta is at the upper limits of normal in size. The aortic arch is normal in size. The IVC is of normal diameter and collapses greater than 50% with a sniff. This suggests a low right atrial pressure of 3 mm Hg. Pericardium/ Pleura There is no pericardial effusion. There is no pleural effusion. MMode/2D Measurements & Calculations LVIDd: 5.0 cm LVOT diam: 1.9 cm LVIDs: 2.8 cm Ao root diam: 3.3 cm FS: 43.7 % Aortic Jxn: 3.0 cm IVSd: 0.89 cm asc Aorta Diam: 3.5 cm LVPWd: 0.82 cm Ao Arch Diam (Prox Trans): 2.9 cm LV parish. diameter/BSA (cm/m^2): 2.5 LV sys. diameter/BSA (cm/m^2): 1.4 LA dimension: 3.8 cm RA long axis: 5.9 cm LA A2 area: 19.6 cm2 RA area: 20.5 cm2 LA A4 area: 21.3 cm2 RA vol: 60.6 ml LA length (vol): 6.0 cm RA : 30.0 ml/m2 LA vol: 58.5 ml IVC diam: 1.8 cm LA vol index: 29.0 ml/m2 RVDd major: 6.1 cm RVD1 (basal): 3.8 cm RVD2 (mid): 3.0 cm Doppler Measurements & Calculations Ao V2 max: 239.8 cm/sec LVOT Max Raphael: 105.9 cm/sec Ao V2 mean: 145.3 cm/sec LV V1 max P.5 mmHg Ao max P.0 mmHg LV V1 VTI: 20.2 cm Ao mean P.7 mmHg JAYY(I,D): 1.3 cm2 Ao V2 VTI: 42.7 cm JAYY(V,D): 1.2 cm2 sev ratio: 0.47 JAYY indexed to BSA (cm^2/m^2): 0.65 MV E max raphael: 119.0 cm/sec TR max raphael: 225.8 cm/sec MV A max raphael: 120.8 cm/sec TR max P.4 mmHg MV E/A: 0.99 PA V2 max: 110.2 cm/sec Med Peak E' Raphael: 6.2 cm/sec PA V2 mean: 70.5 cm/sec E/E' med: 19.2 PA mean P.3 mmHg Lat Peak E' Raphael: 11.1 cm/sec PA Accel Time: 0.09 sec E/E' lat: 10.8 E/e' average: 15.0 MV dec time: 0.21 sec MV P1/2t: 61.9 msec MV P1/2t max raphael: 118.4 cm/sec SV(LVOT): 56.4 ml MVA(P1/2t): 3.6 cm2 Electronically signed by: Yasmani Trejo M.D. on Reading Physician:05/09/2018 02:24 PM
--- NOTE | 2018-05-08 14:00 | OT.IP.TRT ---
Current Diagnoses Acute embolism and thrombosis of unspecified deep veins of unspecified lower extremity (05/07/18) Other specified symptoms and signs involving the circulatory and respiratory systems (05/07/18) Occupational Therapy Treatment Note M3 OT- IP Subjective and Pain Start: 05/08/18 15:58 Freq: Status: Active Protocol: Document 05/08/18 14:00 PJM (Rec: 05/08/18 16:00 PJM [id number]) OT- Subjective Occupational Therapy Visit Type Type Administrative Note Visit Start Time 14:00 Notes OT referral received. Pt admitted with LLE DVT and PE with hx of recent aortic valve replacement on 04/26/18. Per MD orders, pt on hold today due to medical status. Will attempt evaluation again in AM as medical status permits. No charge
[2018-05-08 14:41] LABS: Magnesium 1.9 mg/dL (1.6-2.3)
[2018-05-08] MEDS: WARFARIN 5 MG TABLET PO (16:52)
--- NOTE | 2018-05-08 22:17 | PC.NURSE ---
Pt A&OX3. 2L 95%. 83% on RA. SOB w/exertion. c/o pain when coughing or taking deep breaths. pt is bedrest w/BSC. pain controlled w/1-2 tabs norco. call light in reach.
[2018-05-09] VITALS (12 sets, daily range): BP systolic 106–149; BP diastolic 72–87; PULSE 79–91; RESP 16–22; TEMP 36.5–37.7; O2SAT 87–99
[2018-05-09] MEDS: HYDROCODONE/ACET 10/325 TABLET 1 TAB PO (00:56)
[2018-05-09] MEDS: SODIUM CHLORIDE 0.9% FLUSH 10 ML IV (01:00)
[2018-05-09 06:13] LABS: Add Manual Diff / Slide Review NO; Basophils Absolute Auto 100 /uL (0-100); Basophils Percent Auto 1.1 % (0-2); Eosinophils Absolute Auto 400 /uL (0-450); Eosinophils Percent Auto 3.9 % (2-4); Hematocrit 31.3 % (36-46); Hemoglobin 10.6 g/dL (12.0-16.0); INR 1.4 (0.9-1.3); Lymphocytes Absolute Auto 1400 /uL (1100-4500); Mean Corpuscular HGB Conc 33.7 % (30-36); Mean Corpuscular Hemoglobin 27.3 PG (26-34); Mean Corpuscular Volume 80.9 fL (80-100); Monocytes Absolute Auto 900 /uL (0-900); Monocytes Percent Auto 8.5 % (3-14); Neutrophils Absolute Auto 7900 /uL (1500-7000); Neutrophils Percent Auto 73.5 % (50-75); Platelet Count 338 X10^3/uL (150-400); Prothrombin Time 16.2 SECONDS (10.1-12.7); Red Blood Cell Count 3.87 X10^6/uL (4.0-5.2); Red Cell Distribution Width 15.5 % (11.6-14.8); White Blood Cell Count 10.8 X10^3/uL (4.5-11.0)
[2018-05-09 06:18] LABS: BUN Creatinine Ratio 12.5 (6-22); Blood Urea Nitrogen 10 mg/dL (7-17); Calcium 8.7 mg/dL (8.4-10.2); Carbon Dioxide 24 mmol/L (22-32); Chloride 101 mmol/L (98-107); Estimated Glomerular Filt Rate > 60.0 mL/min (>60); Glucose 104 mg/dL (80-110); HEMOLYSIS 22 (0-50); Magnesium 1.9 mg/dL (1.6-2.3); Potassium 3.9 mmol/L (3.4-5.1); Sodium 134 mmol/L (137-145)
--- NOTE | 2018-05-09 08:52 | P.PN_ITS ---
Subjective Date Patient Seen: 05/09/18 Interval history: Eboni Huerta is a 62-year-old female with a past medical history significant for bicuspid aortic valve with severe critical aortic stenosis status post rec ent aortic valve replacement, Meniere's disease, migraines and Raynaud syndrome who presented for shortness of breath and dyspnea on exertion. The patient is resting in bed. She appears somewhat uncomfortable. She has a bronchospastic cough and history of exercise-induced asthma for which duo nebs have been ordered every 6 hours while awake as needed for shortness of breath and wheezing. She endorses right-sided pleuritic pain with deep inspiration that has slightly improved. She reports ?she feels as though she is turning the corner but has not quite turned it yet.? She denies headache, lightheadedness or dizziness, chest pain, abdominal pain, leg pain, nausea, vomiting, fever, chil ls, dysuria, diarrhea or constipation. She is voiding without difficulty. She has not had a bowel movement since admission and feels as though maybe she is constipated likely from narcotics. She is up ambulating minimally without assistance. Exam Vital Signs (past 8 hours): - 05/09/18 00:56 05/09/18 02:36 05/09/18 04:00 Temperature 99.8 F H 98.5 F Pulse Rate 79 Respiratory Rate 18 Blood Pressure 126/74 Pulse Oximetry 98 99 Oxygen Delivery Method Nasal Cannula Oxygen Flow Rate 2 Narrative Exam Narrative: General: Middle-aged female sitting in bed and in no acute distress, appears uncomfortable and chronically ill, well-developed, well-nourished, appropriately interactive. HEENT: Normocephalic, atraumatic. External ears without defect. Pupils equal, round, and reactive to light. Anicteric sclerae, moist conjunctivae, and no lid lag. Oropharynx free of erythema and cobble stoning with moist mucosa. Nasal cannula in place on 3 L supplemental oxygen. Neck: Supple with full range of motion. No lymphadenopathy or thyromegaly. Cardiovascular: Heart sounds distant but appears regular rate and rhythm without murmurs rubs or gallops. Chest with long vertical scar healed well without exudate, erythema or edema. Pulmonary: Decreased inspiration due to pain. Clear to auscultation bilaterally without wheeze, rhonchi or crackles. Bronchospastic cough present. Normal use of accessory muscles. Abdomen: Soft, obese, bowel sounds present, nontender, nondistended. No hepa tosplenomegaly or masses appreciated. Extremities: No clubbing or cyanosis, or edema. Skin: Normal temperature, turgor, and texture; no rash, ulcers, or subcutaneous nodules appreciated. Neurological: Cranial nerves grossly intact. Psychiatric: Depressed mood and normal affect. Emotionally labile but improved. Alert and oriented to person, place, and time. Objective Labs Result Diagrams: 05/09/18 05:29 05/09/18 05:29 Labs: Laboratory Results - last 24 hr 05/08/18 05/09/18 05/09/18 05:23 05:29 05:29 WBC 10.8 RBC 3.87 L Hgb 10.6 L Hct 31.3 L MCV 80.9 MCH 27.3 MCHC 33.7 RDW 15.5 H Plt Count 338 Neut % (Auto) 73.5 Lymph % (Auto) 13.0 L [place] % (Auto) 8.5 Eos % (Auto) 3.9 Baso % (Auto) 1.1 Neut # (Auto) 7900 H Lymph # (Auto) 1400 [place] # (Auto) 900 Eos # (Auto) 400 Baso # (Auto) 100 PT INR Sodium 134 L Potassium 3.9 Chloride 101 Carbon Dioxide 24 BUN 10 Creatinine 0.80 Estimated GFR > 60.0 BUN/Creatinine Ratio 12.5 Glucose 104 Calcium 8.7 Magnesium 1.9 1.9 05/09/18 05:29 WBC RBC Hgb Hct MCV MCH MCHC RDW Plt Count Neut % (Auto) Lymph % (Auto) [place] % (Auto) Eos % (Auto) Baso % (Auto) Neut # (Auto) Lymph # (Auto) [place] # (Auto) Eos # (Auto) Baso # (Auto) PT 16.2 H INR 1.4 H Sodium Potassium Chloride Carbon Dioxide BUN Creatinine Estimated GFR BUN/Creatinine Ratio Glucose Calcium Magnesium Assessment & Plan Assessment & Plan narrative: Eboni Huerta is a 62-year-old female with a past medical history significant for bicuspid aortic valve with severe critical aortic stenosis status post recent aortic valve replacement, Meniere's disease, migraines and Raynaud syndrome who presented for shortness of breath and dyspnea on exertion. 1. Acute provoked DVT and presumed right-sided PE, present on admission. Active. -Unable to undergo CTA of chest to assess for PE due to severe claustrophobia to the extent patient would have to be heavily sedated and unconscious. Associated symptoms of pleuritic/positional right-sided chest pain, shortness of breath and exertional dyspnea, and lightheadedness. -Patient without complaints of leg pain, however, has a left popliteal DVT on venous ultrasound. Possibly previous right-sided DVT to account for right-sided PE. -Patient is bed rest at this time with bathroom privileges. Will start to ambulate after 24 hours of anticoagulation therapy and echo resulted. -Ordered hydrocodone 5/325 mg as needed for pain. -Ordered echocardiogram as there is concern for right ventricular overload and need for catheter directed thrombolysis, pending. Unable to perform yesterday due to scheduling conflicts. -Continue therapeutic Lovenox 100 mg twice daily for bridge to warfarin 5 mg at night. Patient did not want NOAC due to personal preference. Check INR daily. 2. Recent aortic valve replacement, present on admission. Stable. -Aortic valve replacement on 04/26/2018 and discharged without anticoagulation. -Sternal wound healing cleanly without signs of infection. -Patient has not yet started cardiac rehab. Ordered PT and OT evaluation and treatment to start after 24 hours of anticoagulation and once echo resulted. -Ordered hydrocodone 5/325 mg as needed for pain. 3. Meniere's disease, chronic, present on admission. Stable. -Does not represent acute exacerbation. Will monitor for symptoms. 4. Raynaud syndrome, chronic, present on admission. Stable. -Inactive as there are no complaints of pain or symptoms. 5. Hyperlipidemia, chronic, present on admission. Stable. -Present since at least 2017. Lipid panel recently () repeated with cholesterol 228 and LDL 151. -Patient would benefit from a statin and again discussed and highly encouraged use with education provided. Disposition: Likely to discharge in 1-2 days depending upon echocardiogram and bridging treatment from Lovenox to warfarin.
[2018-05-09] MEDS: METOPROLOL IR 25 MG TABLET 12.5 MG PO ×2 (09:01→20:57)
[2018-05-09] MEDS: ENOXAPARIN 100 MG/ML SYRINGE SUBCUT ×2 (09:02→20:56)
[2018-05-09] MEDS: POTASSIUM CHLORIDE 10 MEQ TAB PO (09:52)
[2018-05-09] MEDS: MAGNESIUM CHLORIDE 64 MG TABLET PO (09:52)
--- NOTE | 2018-05-09 10:50 | PT.IPTN ---
Current Diagnoses Acute embolism and thrombosis of unspecified deep veins of unspecified lower extremity (05/07/18) Other specified symptoms and signs involving the circulatory and respiratory systems (05/07/18) Physical Therapy Treatment Note M3 PT-IP Subjective Start: 05/08/18 12:06 Freq: NEEDED Status: Active Protocol: Document 05/09/18 10:49 AB (Rec: 05/09/18 10:50 AB [id number]) Subjective Physical Therapy Visit Type Notes per Dr. Devlin: PT on hold pending echo result.
[2018-05-09] MEDS: ALBUTEROL/IPRATROPIUM 3 ML AMPUL INH ×2 (11:49→22:02)
[2018-05-09] MEDS: ACETAMINOPHEN 325 MG TABLET 650 MG PO (11:59)
[2018-05-09] MEDS: HYDROCODONE/ACET 5/325 TABLET 1 TAB PO ×3 (13:51→19:09)
--- NOTE | 2018-05-09 14:30 | OT.IP.TRT ---
Current Diagnoses Acute embolism and thrombosis of unspecified deep veins of unspecified lower extremity (05/07/18) Other specified symptoms and signs involving the circulatory and respiratory systems (05/07/18) Occupational Therapy Treatment Note M3 OT- IP Subjective and Pain Start: 05/08/18 15:58 Freq: Status: Active Protocol: Document 05/09/18 14:33 PJM (Rec: 05/09/18 14:35 PJM [id number]) OT- Subjective Occupational Therapy Visit Type Type Administrative Note Visit Start Time 14:30 Notes Pt remains on hold today per Dr Devlin until after Echo results received. Will continue to follow and initiate OT evaluation when medical status permits. No charge.
[2018-05-09] MEDS: WARFARIN 5 MG TABLET PO (16:59)
--- NOTE | 2018-05-09 18:59 | DI.RAD.S_ITS ---
PROCEDURE: XR KUB INDICATIONS: severe pain TECHNIQUE: One view of the abdomen acquired. COMPARISON: None. FINDINGS: Surgical changes and devices: Surgical clips are seen in gallbladder fossa.. Bowel: Bowel gas pattern is normal. Soft tissues: No suspicious abdominal calcifications. Visualized solid organ contours appear normal in size. Bones: No suspicious bony lesions. IMPRESSION: No evidence of bowel obstruction or gross free air. Dictated by: Timothy Arce M.D. on 05/09/2018 at 20:38 Approved by: Timothy Arce M.D. on 05/09/2018 at 20:42
--- NOTE | 2018-05-09 19:12 | PC.NURSE ---
sharp pain 1911 pt medicated with 1 vicodin ( pt previously receiving 1 tab approx 1830) after calling RN to room stating sharp pains to right rib area. notified and assessed pt at bedside. stat order for XR KUB and warm pack placed for comfort. O2 sats continue mid 90s and continous O2 monitor on. Pt's friend present at bedside and providing distraction for pt. awaiting KUB.
--- NOTE | 2018-05-09 19:31 | PC.NURSE ---
Addendum entered by Cass Hanson R.N. 05/09/18 21:04: *skin warm and pink. Original Note: Addendum entered by Cass Hanson R.N. 05/09/18 21:01: Patient resting in bed with HOB elevated, reports significant improvement to discomfort to right lateral rib area, 3/10. Cont. on O2 at 2L via NC, sats 95%. Speaking is short sentences. Will like to hold the Flexerill dose prior to bedtime. Skin warm and skin. Original Note: Yodit shift note: Reassessed post second [place] admin, patient states mild improvement with pain to right lower rib area. O2 sat 95-99% on O2 at 2L. Clear lung sounds bilaterally, with min diminished lung sound to RML, unchanged from previous assessment. Overall, states improvement with breathing effort from previous day. Would like to try Flexeril for muscle spasms. Friend at bedside providing supportive care. Will continue to monitor closely.
[2018-05-09] MEDS: CYCLOBENZAPRINE 10 MG TABLET PO (23:55)
[2018-05-10] VITALS (11 sets, daily range): BP systolic 122–144; BP diastolic 70–76; PULSE 72–97; RESP 15–20; TEMP 36.4–37.4; O2SAT 91–99
[2018-05-10] MEDS: HYDROCODONE/ACET 5/325 TABLET 2 TAB PO (01:04)
[2018-05-10 06:25] LABS: INR 1.6 (0.9-1.3); Prothrombin Time 18.1 SECONDS (10.1-12.7)
[2018-05-10 06:32] LABS: Blood Urea Nitrogen 8 mg/dL (7-17); Calcium 8.6 mg/dL (8.4-10.2); Carbon Dioxide 27 mmol/L (22-32); Chloride 101 mmol/L (98-107); Estimated Glomerular Filt Rate > 60.0 mL/min (>60); Glucose 104 mg/dL (80-110); HEMOLYSIS < 15 (0-50); Potassium 3.7 mmol/L (3.4-5.1); Sodium 135 mmol/L (137-145)
[2018-05-10] MEDS: ENOXAPARIN 100 MG/ML SYRINGE SUBCUT ×2 (08:46→20:31)
[2018-05-10] MEDS: HYDROCODONE/ACET 5/325 TABLET 1 TAB PO ×2 (08:47→21:51)
[2018-05-10] MEDS: METOPROLOL IR 25 MG TABLET 12.5 MG PO ×2 (08:47→20:31)
[2018-05-10] MEDS: SENNOSIDES 8.6 MG TABLET 17.2 MG PO (08:47)
--- NOTE | 2018-05-10 09:06 | PM.PN.1 ---
Subjective Date Patient Seen: 05/10/18 Interval history: Eboni Huerta is a 62-year-old female with a past medical history significant for bicuspid aortic valve with severe critical aortic stenosis status post recent aortic valve replacement, Meniere's disease, migraines and Raynaud syndrome who presented for shortness of breath and dyspnea on exertion. Interval history: Patient had spastic right-sided flank pain that was sharp in quality yesterday evening at shift change. She was given Flexeril and hydrocodone with moderate relief. KUB was performed as she has history of nephrolithiasis which was negative. The patient is resting in bed. She reports she feels much better today. She has an intermittent bronchospastic cough and history of exercise-induced asthma which has improved today with nebulizer treatments. She continues to have right-sided pleuritic pain with deep inspiration that is improving. Her right flank pain is very mild today. She denies headache, lightheadedness or dizziness, chest pain, abdominal pain, leg pain, nausea, vomiting, fever, chills, dysuria, diarrhea or constipation. She is voiding without difficulty. She has not had a bowel movement since admission and a bowel regimen has been implemented. She is to work with physical therapy today as she has been on bed rest for last 1-2 days for DVT. Exam Vital Signs (past 8 hours): - 05/10/18 06:00 05/10/18 07:40 05/10/18 07:47 Temperature 98.0 F 99.4 F Pulse Rate 77 77 75 Respiratory Rate 16 15 Blood Pressure 124/70 122/70 Pulse Oximetry 99 95 98 Oxygen Delivery Method Nasal Cannula Oxygen Flow Rate 2 Narrative Exam Narrative: General: Middle-aged female sitting in bed and in no acute distress, appears uncomfortable and chronically ill, well-developed, well-nourished, appropriately interactive. HEENT: Normocephalic, atraumatic. External ears without defect. Pupils equal, round, and reactive to light. Anicteric sclerae, moist conjunctivae, and no lid lag. Neck: Supple with full range of motion. No lymphadenopathy or thyromegaly. Cardiovascular: Heart sounds distant but appears regular rate and rhythm without murmurs rubs or gallops. Chest with long vertical scar healed well without exudate, erythema or edema. Pulmonary: Decreased inspiration due to pain. Clear to auscultation bilaterally without wheeze, rhonchi or crackles. Bronchospastic cough present. Normal use of accessory muscles. Abdomen: Soft, obese, bowel sounds present, nontender, nondistended. No hepatosplenomegaly or masses appreciated. Extremities: No clubbing or cyanosis, or edema. Skin: Normal temperature, turgor, and texture; no rash, ulcers, or subcutaneous nodules appreciated. Neurological: Cranial nerves grossly intact. Psychiatric: Depressed mood and normal affect. Anxious. Emotionally labile but improved. Alert and oriented to person, place, and time. Objective Labs Result Diagrams: 05/09/18 05:29 05/10/18 05:50 Labs: Laboratory Results - last 24 hr 05/10/18 05/10/18 05:50 05:50 PT 18.1 H INR 1.6 H Sodium 135 L Potassium 3.7 Chloride 101 Carbon Dioxide 27 BUN 8 Creatinine 0.80 Estimated GFR > 60.0 BUN/Creatinine Ratio 10.0 Glucose 104 Calcium 8.6 Assessment & Plan Assessment & Plan narrative: Eboni Huerta is a 62-year-old female with a past medical history significant for bicuspid aortic valve with severe critical aortic stenosis status post recent aortic valve replacement, Meniere's disease, migraines and Raynaud syndrome who presented for shortness of breath and dyspnea on exertion. 1. Acute provoked DVT and presumed right-sided PE, present on admission. Active. -Presumed right-sided PE as patient presented with pleuritic/positional right-sided chest pain, shortness of breath, exertional dyspnea, and lightheadedness. Found to have left popliteal DVT on venous Doppler ultrasound. -Unable to undergo CTA of chest to assess for PE due to severe claustrophobia to the extent patient would have to be intubated and heavily sedated/unconscious. -Unclear why patient was not started on anticoagulant after bioprosthetic aortic valve replacement. Also patient was treated here empirically for presumed PE prior to valve replacement. -Ordered hydrocodone 5/325 mg and Flexeril 5 mg 3 times daily as needed for pain. -Ordered echocardiogram as there was concern for right ventricular overload and high clot burden. There is no evidence of right ventricular strain or CHF and new bioprosthetic aortic valve is seated well. -Continue therapeutic Lovenox 100 mg twice daily for bridge to warfarin 5 mg at night. Patient did not want NOAC due to personal preference. Check INR daily. 2. Recent bioprosthetic aortic valve replacement, present on admission. Stable. -Patient underwent bioprosthetic (bovine) aortic valve replacement on 04/26/2018 and discharged without anticoagulation?? Sternal wound healing cleanly without signs of infection. -Patient has not yet started cardiac rehab. Patient will undergo PT evaluation and treatment today. -Ordered hydrocodone 5/325 mg as needed for pain. 3. Meniere's disease, chronic, present on admission. Stable. -Does not represent acute exacerbation. Will monitor for symptoms. 4. Raynaud syndrome, chronic, present on admission. Stable. -Inactive as there are no complaints of pain or symptoms. 5. Hyperlipidemia, chronic, present on admission. Stable. -Present since at least 2016. Lipid panel recently () repeated with cholesterol 228 and LDL 151. -Patient would benefit from a statin and again discussed and highly encouraged use with education provided. Disposition: Likely to discharge tomorrow once ambulating likely with short course of Lovenox to bridge to warfarin.
--- NOTE | 2018-05-10 09:14 | P.PN_ITS ---
Subjective Date Patient Seen: 05/10/18 Interval history: Eboni Huerta is a 62-year-old female with a past medical history significant for bicuspid aortic valve with severe critical aortic stenosis status post rec ent aortic valve replacement, Meniere's disease, migraines and Raynaud syndrome who presented for shortness of breath and dyspnea on exertion. Interval history: Patient had spastic right-sided flank pain that was sharp in quality yesterday evening at shift change. She was given Flexeril and hy drocodone with moderate relief. KUB was performed as she has history of nephrolithiasis which was negative. The patient is resting in bed. She reports she feels much better today. She has an intermittent bronchospastic cough and history of exercise-induced asthma which has improved today with nebulizer treatments. She continues to have right-sided pleuritic pain with deep inspiration that is improving. Her right flank pain is very mild today. She denies headache, lightheadedness or dizzin ess, chest pain, abdominal pain, leg pain, nausea, vomiting, fever, chills, dysuria, diarrhea or constipation. She is voiding without difficulty. She has not had a bowel movement since admission and a bowel regimen has been implemented. She is to work with physical therapy today as she has been on bed rest for last 1-2 days for DVT. Exam Vital Signs (past 8 hours): - 05/10/18 06:00 05/10/18 07:40 05/10/18 07:47 Temperature 98.0 F 99.4 F Pulse Rate 77 77 75 Respiratory Rate 16 15 Blood Pressure 124/70 122/70 Pulse Oximetry 99 95 98 Oxygen Delivery Method Nasal Cannula Oxygen Flow Rate 2 Narrative Exam Narrative: General: Middle-aged female sitting in bed and in no acute distress, appears uncomfortable and chronically ill, well-developed, well-nourished, appropriately interactive. HEENT: Normocephalic, atraumatic. External ears without defect. Pupils equal, round, and reactive to light. Anicteric sclerae, moist conjunctivae, and no lid lag. Neck: Supple with full range of motion. No lymphadenopathy or thyromegaly. Cardiovascular: Heart sounds distant but appears regular rate and rhythm without murmurs rubs or gallops. Chest with long vertical scar healed well without exudate, erythema or edema. Pulmonary: Decreased inspiration due to pain. Clear to auscultation bilat erally without wheeze, rhonchi or crackles. Bronchospastic cough present. Normal use of accessory muscles. Abdomen: Soft, obese, bowel sounds present, nontender, nondistended. No hepatosplenomegaly or masses appreciated. Extremities: No clubbing or cyanosis, or edema. Skin: Normal temperature, turgor, and texture; no rash, ulcers, or subcutaneous nodules appreciated. Neurological: Cranial nerves grossly intact. Psychiatric: Depressed mood and normal affect. Anxious. Emotionally labile but improved. Alert and oriented to person, place, and time. Objective Labs Result Diagrams: 05/09/18 05:29 05/10/18 05:50 Labs: Laboratory Results - last 24 hr 05/10/18 05/10/18 05:50 05:50 PT 18.1 H INR 1.6 H Sodium 135 L Potassium 3.7 Chloride 101 Carbon Dioxide 27 BUN 8 Creatinine 0.80 Estimated GFR > 60.0 BUN/Creatinine Ratio 10.0 Glucose 104 Calcium 8.6 Assessment & Plan Assessment & Plan narrative: Eboni Huerta is a 62-year-old female with a past medical history significant for bicuspid aortic valve with severe critical aortic stenosis status post recent aortic valve replacement, Meniere's disease, migraines and Raynaud syndrome who presented for shortness of breath and dyspnea on exertion. 1. Acute provoked DVT and presumed right-sided PE, present on admission. Active. -Presumed right-sided PE as patient presented with pleuritic/positional right- sided chest pain, shortness of breath, exertional dyspnea, and lightheadedness. Found to have left popliteal DVT on venous Doppler ultrasound. -Unable to undergo CTA of chest to assess for PE due to severe claustrophobia to the extent patient would have to be intubated and heavily sedated/unconscious. -Unclear why patient was not started on anticoagulant after bioprosthetic aortic valve replacement. Also patient was treated here empirically for presumed PE prior to valve replacement. -Ordered hydrocodone 5/325 mg and Flexeril 5 mg 3 times daily as needed for pain. -Ordered echocardiogram as there was concern for right ventricular overload and high clot burden. There is no evidence of right ventricular strain or CHF and new bioprosthetic aortic valve is seated well. -Continue therapeutic Lovenox 100 mg twice daily for bridge to warfarin 5 mg at night. Patient did not want NOAC due to personal preference. Check INR daily. 2. Recent bioprosthetic aortic valve replacement, present on admission. Stable. -Patient underwent bioprosthetic (bovine) aortic valve replacement on 04/26/2018 and discharged without anticoagulation?? Sternal wound healing cleanly without signs of infection. -Patient has not yet started cardiac rehab. Patient will undergo PT evaluation and treatment today. -Ordered hydrocodone 5/325 mg as needed for pain. 3. Meniere's disease, chronic, present on admission. Stable. -Does not represent acute exacerbation. Will monitor for symptoms. 4. Raynaud syndrome, chronic, present on admission. Stable. -Inactive as there are no complaints of pain or symptoms. 5. Hyperlipidemia, chronic, present on admission. Stable. -Present since at least 2016. Lipid panel recently () repeated with cholesterol 228 and LDL 151. -Patient would benefit from a statin and again discussed and highly encouraged use with education provided. Disposition: Likely to discharge tomorrow once ambulating likely with short course of Lovenox to bridge to warfarin.
--- NOTE | 2018-05-10 12:01 | PT.IIE ---
Current Diagnoses Other pulmonary embolism without acute cor pulmonale (05/07/18) Acute embolism and thrombosis of unspecified deep veins of unspecified lower extremity (05/07/18) Other specified symptoms and signs involving the circulatory and respiratory systems (05/07/18) Surgical History (Last Updated 05/08/18 @ 01:34 by CRESENCIO Hugo) Aortic valve replaced (Acute) History of corneal transplant (Acute) History of parotidectomy (Acute) Status post appendectomy Status post hysterectomy Status post laparoscopic cholecystectomy Medical History (Last Updated 05/08/18 @ 01:34 by CRESENCIO Hugo) Fuchs' corneal dystrophy (Acute) Bicuspid aortic valve (Acute) Hypertension (Acute) Menieres syndrome (Acute) Migraines (Acute) Raynauds phenomenon (Acute) Physical Therapy Inpatient Evaluation/Re-Eval M1 PT/OT-IP Prior Functional Status Start: 05/08/18 12:06 Freq: NEEDED Status: Active Protocol: Document 05/10/18 12:01 AB (Rec: 05/10/18 14:14 [id number]) Medical Review Prior Functional Status Medical History Reviewed Yes Communication able to make needs known Mobility and Gait pt stated that she is independent with all mobilities and ambulation without AD Prior Functional Level (Other details) pt had a recent aortic valve replacement 04/26 and d/c'd home 04/30. pt with c/o SOB and found to have DVT and pulmonary emboli. Social History Household Members none Living Arrangements House Number of Floors (Floors) One Floor Number of Stairs To Enter/Railing? has 2 platform steps to enter with R rail ascending stated that her friend will stay with her for 2 weeks and assist her Home Environment Standard Height Toilet Tub/Shower Home Equipment Four Wheel Walker Straight Cane Shower Seat with Backrest M2 PT-IP Current Condition Start: 05/08/18 12:06 Freq: NEEDED Status: Active Protocol: Document 05/10/18 12:01 AB (Rec: 05/10/18 14:14 AB [id number]) Physical Therapy Current Condition Current Condition Evaluation Date 05/10/18 Treatment Diagnosis s/p sortic valve replacement; pulmonary embolism; generalized weakness Onset Date 05/07/18 Precautions Other Precautions sternal precautions Weight Bearing Status Weight Bearing Status Non-Weight Bearing Allowed Weight Bearing Amount (enter % NWB BUE or #) (%) M3 PT-IP Subjective Start: 05/08/18 12:06 Freq: NEEDED Status: Active Protocol: Document 05/10/18 12:01 AB (Rec: 05/10/18 14:14 AB [id number]) Subjective Physical Therapy Visit Type Type Initial Evaluation Visit Start Time 12:01 Visit Stop Time 12:25 Total Visit Minutes 24 Number of CRUSHER AND BINDER OPERATOR Visits 0 Physical Therapy Visit Comments Patient Comments pt agreeable to do PT Therapy Pain Assessment Pain Present Pain Present Denied Pain M4 PT-IP Mobility and Gait Start: 05/08/18 12:06 Freq: NEEDED Status: Active Protocol: Document 05/10/18 12:01 AB (Rec: 05/10/18 14:14 [id number]) PT-Bed Mobility Assessment Rolling Type of Rolling Log Rolling Level of Assist Standby Assistance Supine to Sit Supine to Sit Standby Assistance Sit to Supine Sit to Supine Standby Assistance PT-Transfer Assessment Sit to and From Stand Sit to and from Stand Standby Assistance Equipment Transfer Assistive Device None Gait Belt Orthotic/Prosthetic Devices or Brace: No Transfers Transfer Destination Bedside Commode Transfer Technique Stand Step Pivot Transfer Ability Level of Assist Standby Assistance Gait Assessment Gait Gait Assistance Required: Standby Assistance Distance (Feet) 40 Able to Maintain Weight Bearing Status Yes During Gait Assistive Devices Assistive Device None Gait Belt Front Wheeled Walker Orthotic/Prosthetic Devices or Brace: No Factors Limiting Gait Function Factors Limiting Gait Function Decreased Activity Tolerance Comments Gait Comments pt ambulated using fWW in room SBA ~ 30 ft. Assessed ambulation without AD and pt completed SBA ~ 40 ft. O2 sat at room air and pt able to maintain 87 to 94% throughout tx session. PT-Balance Assessment Sitting Balance and Reactions Static Sitting Balance Ability Good Dynamic Sitting Balance Ability Good Standing Balance and Reactions Static Standing Balance Ability Good Dynamic Standing Balance Ability Good Device Used without AD M5 PT-IP Objective Assessments Start: 05/08/18 12:06 Freq: NEEDED Status: Active Protocol: Document 05/10/18 12:01 AB (Rec: 05/10/18 14:14 [id number]) Orientation Orientation/Cognition Level of Alertness Alert Orientation Name Age Birthday Month Date Year Day of Week Place Situation Language Function Ability No Deficits Noted Safety Awareness Understands Safety Issues Memory Description No Deficits Noted Gross Range of Motion Lower Extremity ROM Assessment Within Functional Limits Strength Lower Extremity Strength Assessment Within Functional Limits Coordination Assessment Gross Coordination Gross Coordination WNL Sensation Assessment Sensation Gross Sensation WNL M6 PT-IP Treatment Start: 05/08/18 12:06 Freq: NEEDED Status: Active Protocol: Document 05/10/18 12:01 AB (Rec: 05/10/18 14:14 AB [id number]) Physical Therapy Treatment Education Education Provided Precautions Safety M7 PT-IP Assessment and Plan Start: 05/08/18 12:06 Freq: NEEDED Status: Active Protocol: Document 05/10/18 12:01 AB (Rec: 05/10/18 14:14 AB [id number]) PT Summary Assessment and Plan Potential Rehabilitation Potential Good Status of Condition at Evaluation Stable Summary Impairments Strength Bed Mobility Transfers Gait Activity Tolerance Assessment Summary pt requiring SBA with mobility but presents with decrease activity tolerance. encouraged pt to ambulate with nurses in room and pt agreed. Pt will continue with PT to improve activity tolerance, overall strength for long distance ambulation. pt plans to go home with her friend to assist her and will benefit from cardiac outpt PT or cardiopulmonary rehab services . Goals Bed Mobility Goal Independent Transfer Goal Independent Gait Goal Independent Gait Distance 250 Other Goals up/down 2 platform steps with R rail ascending SBA Days to Meet Goals 3 Frequency of Treatment Frequency Of Treatment Once a Day Treatment Plan Physical Therapy Treatment Plan Bed Mobility Training Transfer Training Gait Training Therapeutic Exercise Balance Retraining Discharge Planning Hot or Cold Pack Neuromuscular Re-ed Coordination Retraining Manual Therapy Other Recommendations and Next Treatment long distance ambulation; Focus stair climbing Recommendations To Nursing Amount of Assist Needed Standby Assistance Discharge Recommendations PT Discharge Recommendations Home with Assistance Outpatient PT Other Discharge Recommendations cardiac rehab
--- NOTE | 2018-05-10 12:01 | PT.IIE ---
Current Diagnoses Other pulmonary embolism without acute cor pulmonale (05/07/18) Acute embolism and thrombosis of unspecified deep veins of unspecified lower extremity (05/07/18) Other specified symptoms and signs involving the circulatory and respiratory systems (05/07/18) Surgical History (Last Updated 05/08/18 @ 01:34 by CRESENCIO Hugo) Aortic valve replaced (Acute) History of corneal transplant (Acute) History of parotidectomy (Acute) Status post appendectomy Status post hysterectomy Status post laparoscopic cholecystectomy Medical History (Last Updated 05/08/18 @ 01:34 by CRESENCIO Hugo) Fuchs' corneal dystrophy (Acute) Bicuspid aortic valve (Acute) Hypertension (Acute) Menieres syndrome (Acute) Migraines (Acute) Raynauds phenomenon (Acute) Physical Therapy Inpatient Evaluation/Re-Eval M1 PT/OT-IP Prior Functional Status Start: 05/08/18 12:06 Freq: NEEDED Status: Active Protocol: Document 05/10/18 12:01 AB (Rec: 05/10/18 14:14 [id number]) Medical Review Prior Functional Status Medical History Reviewed Yes Communication able to make needs known Mobility and Gait pt stated that she is independent with all mobilities and ambulation without AD Prior Functional Level (Other details) pt had a recent aortic valve replacement 04/26 and d/c'd home 04/30. pt with c/o SOB and found to have DVT and pulmonary emboli. Social History Household Members none Living Arrangements House Number of Floors (Floors) One Floor Number of Stairs To Enter/Railing? has 2 platform steps to enter with R rail ascending stated that her friend will stay with her for 2 weeks and assist her Home Environment Standard Height Toilet Tub/Shower Home Equipment Four Wheel Walker Straight Cane Shower Seat with Backrest M2 PT-IP Current Condition Start: 05/08/18 12:06 Freq: NEEDED Status: Active Protocol: Document 05/10/18 12:01 AB (Rec: 05/10/18 14:14 AB [id number]) Physical Therapy Current Condition Current Condition Evaluation Date 05/10/18 Treatment Diagnosis s/p sortic valve replacement; pulmonary embolism; generalized weakness Onset Date 05/07/18 Precautions Other Precautions sternal precautions Weight Bearing Status Weight Bearing Status Non-Weight Bearing Allowed Weight Bearing Amount (enter % NWB BUE or #) (%) M3 PT-IP Subjective Start: 05/08/18 12:06 Freq: NEEDED Status: Active Protocol: Document 05/10/18 12:01 AB (Rec: 05/10/18 14:14 AB [id number]) Subjective Physical Therapy Visit Type Type Initial Evaluation Visit Start Time 12:01 Visit Stop Time 12:25 Total Visit Minutes [address] joshi cleared pt for PT. Number of LITERARY AGENT Visits 0 Physical Therapy Visit Comments Patient Comments pt agreeable to do PT Therapy Pain Assessment Pain Present Pain Present Denied Pain M4 PT-IP Mobility and Gait Start: 05/08/18 12:06 Freq: NEEDED Status: Active Protocol: Document 05/10/18 12:01 AB (Rec: 05/10/18 14:14 AB [id number]) PT-Bed Mobility Assessment Rolling Type of Rolling Log Rolling Level of Assist Standby Assistance Supine to Sit Supine to Sit Standby Assistance Sit to Supine Sit to Supine Standby Assistance PT-Transfer Assessment Sit to and From Stand Sit to and from Stand Standby Assistance Equipment Transfer Assistive Device None Gait Belt Orthotic/Prosthetic Devices or Brace: No Transfers Transfer Destination Bedside Commode Transfer Technique Stand Step Pivot Transfer Ability Level of Assist Standby Assistance Gait Assessment Gait Gait Assistance Required: Standby Assistance Distance (Feet) 40 Able to Maintain Weight Bearing Status Yes During Gait Assistive Devices Assistive Device None Gait Belt Front Wheeled Walker Orthotic/Prosthetic Devices or Brace: No Factors Limiting Gait Function Factors Limiting Gait Function Decreased Activity Tolerance Comments Gait Comments pt ambulated using fWW in room SBA ~ 30 ft. Assessed ambulation without AD and pt completed SBA ~ 40 ft. O2 sat at room air and pt able to maintain 87 to 94% throughout tx session. PT-Balance Assessment Sitting Balance and Reactions Static Sitting Balance Ability Good Dynamic Sitting Balance Ability Good Standing Balance and Reactions Static Standing Balance Ability Good Dynamic Standing Balance Ability Good Device Used without AD M5 PT-IP Objective Assessments Start: 05/08/18 12:06 Freq: NEEDED Status: Active Protocol: Document 05/10/18 12:01 AB (Rec: 05/10/18 14:14 AB [id number]) Orientation Orientation/Cognition Level of Alertness Alert Orientation Name Age Birthday Month Date Year Day of Week Place Situation Language Function Ability No Deficits Noted Safety Awareness Understands Safety Issues Memory Description No Deficits Noted Gross Range of Motion Lower Extremity ROM Assessment Within Functional Limits Strength Lower Extremity Strength Assessment Within Functional Limits Coordination Assessment Gross Coordination Gross Coordination WNL Sensation Assessment Sensation Gross Sensation WNL M6 PT-IP Treatment Start: 05/08/18 12:06 Freq: NEEDED Status: Active Protocol: Document 05/10/18 12:01 AB (Rec: 05/10/18 14:14 AB [id number]) Physical Therapy Treatment Education Education Provided Precautions Safety M7 PT-IP Assessment and Plan Start: 05/08/18 12:06 Freq: NEEDED Status: Active Protocol: Document 05/10/18 12:01 AB (Rec: 05/10/18 14:14 AB [id number]) PT Summary Assessment and Plan Potential Rehabilitation Potential Good Status of Condition at Evaluation Stable Summary Impairments Strength Bed Mobility Transfers Gait Activity Tolerance Assessment Summary pt requiring SBA with mobility but presents with decrease activity tolerance. encouraged pt to ambulate with nurses in room and pt agreed. Pt will continue with PT to improve activity tolerance, overall strength for long distance ambulation. pt plans to go home with her friend to assist her and will benefit from cardiac outpt PT or cardiopulmonary rehab services . Goals Bed Mobility Goal Independent Transfer Goal Independent Gait Goal Independent Gait Distance 250 Other Goals up/down 2 platform steps with R rail ascending SBA Days to Meet Goals 3 Frequency of Treatment Frequency Of Treatment Once a Day Treatment Plan Physical Therapy Treatment Plan Bed Mobility Training Transfer Training Gait Training Therapeutic Exercise Balance Retraining Discharge Planning Hot or Cold Pack Neuromuscular Re-ed Coordination Retraining Manual Therapy Other Recommendations and Next Treatment long distance ambulation; Focus stair climbing Recommendations To Nursing Amount of Assist Needed Standby Assistance Discharge Recommendations PT Discharge Recommendations Home with Assistance Outpatient PT Other Discharge Recommendations cardiac rehab
[2018-05-10] MEDS: ACETAMINOPHEN 325 MG TABLET 650 MG PO (12:31)
--- NOTE | 2018-05-10 13:41 | OT.IP.TRT ---
Current Diagnoses Other pulmonary embolism without acute cor pulmonale (05/07/18) Acute embolism and thrombosis of unspecified deep veins of unspecified lower extremity (05/07/18) Other specified symptoms and signs involving the circulatory and respiratory systems (05/07/18) Occupational Therapy Treatment Note M3 OT- IP Subjective and Pain Start: 05/08/18 15:58 Freq: Status: Active Protocol: Document 05/10/18 13:28 [facility] (Rec: 05/10/18 13:41 [facility] [email or web address]) OT- Subjective Occupational Therapy Visit Type Type Treatment Note Visit Start Time 13:10 Visit Stop Time 13:25 Total Visit Minutes 15 Notes Pt doing well and mainly went over energy conservation with pt and able to suggest ideas of using disposable plates, use of orly robe to dry off, install HHSP, turn on cold water first and then add hot before shower to limit steam in the shower, and prioritize activities. Pt to have a friend stay with her for 2 weeks. Therefore discharge pt from OT services.
[2018-05-10] MEDS: ALBUTEROL/IPRATROPIUM 3 ML AMPUL INH ×2 (14:04→19:30)
[2018-05-10] MEDS: WARFARIN 5 MG TABLET PO (16:54)
--- NOTE | 2018-05-10 19:38 | PC.NURSE ---
Evening Shift Note- Patient alert and oriented and able to make needs known to staff. Patient pleasent, calm, and cooperative with care. No complaints of pain or discomfort at this time. No complaints of N/V, Patient does stat I have not had any appitite thru all this.: Patient sating 90-93% on room air. Lung sounds diminished with fine crackles to bases and shortness of breath with exertion. No noted edema. Bowel tones present. Pedal pulse palpable. Patient independent in room with steady gait noted. Patient currently taking a shower. safety measures in place. Patient agrees to call as needed. call smith and phone within reach. will continue to monitor.
[2018-05-10] MEDS: PREDNISOLONE 1% 1 EACH EYE-BOTH (20:50)
--- NOTE | 2018-05-11 00:09 | PC.NURSE ---
@ 2100 this RN received report from evening nurse for transfer of care; patient reports 4-5/10 pain, with grimacing and facial tension; PO [place] administered; patient using pillow for coughing and deep breathing; patient encouraged to use call light for continued needs
[2018-05-11] MEDS: CYCLOBENZAPRINE 5 MG TABLET PO (00:50)
[2018-05-11] MEDS: HYDROCODONE/ACET 10/325 TABLET 1 TAB PO ×2 (00:51→11:35)
[2018-05-11 00:57] VITALS: O2SAT 92
[2018-05-11] MEDS: ALBUTEROL/IPRATROPIUM 3 ML AMPUL INH ×2 (01:03→10:05)
[2018-05-11 06:00] VITALS: BP 125/68; PULSE 85; RESP 15; TEMP 36.7; O2SAT 94
[2018-05-11 06:18] LABS: Appearance Urine UA CLEAR; Bilirubin Urine UA NEGATIVE (NEGATIVE); Color Urine UA YELLOW; Glucose Urine UA NEGATIVE (Negative); Ketones Urine UA NEGATIVE (NEGATIVE); Leukocyte Esterase Urine UA 1+ (NEGATIVE); Nitrite Urine UA NEGATIVE (Negative); Occult Blood Urine UA TRACE-INTACT (Negative); Protein Urine UA NEGATIVE (Negative); Urobilinogen Urine UA 0.2 E.U./dL (0.2)
[2018-05-11 06:33] LABS: Squamous Epithelial Cell Urine 1-5 /HPF (0-5/HPF)
[2018-05-11 06:34] LABS: Bacteria Urine Few (2-10); Culture Indicated Urine Specimen Cultured; Mucus Urine 1+ (Negative); RBC Urine 0-1/HPF (0-5/HPF); WBC Urine 0-1/HPF (0-5/HPF)
[2018-05-11 06:48] LABS: Add Manual Diff / Slide Review NO; Basophils Absolute Auto 100 /uL (0-100); Eosinophils Absolute Auto 400 /uL (0-450); Eosinophils Percent Auto 5.2 % (2-4); Hemoglobin 10.1 g/dL (12.0-16.0); Lymphocytes Absolute Auto 1300 /uL (1100-4500); Lymphocytes Percent Auto 17.3 % (25-40); Mean Corpuscular HGB Conc 32.8 % (30-36); Mean Corpuscular Hemoglobin 26.5 PG (26-34); Mean Corpuscular Volume 80.8 fL (80-100); Monocytes Absolute Auto 700 /uL (0-900); Monocytes Percent Auto 9.1 % (3-14); Neutrophils Absolute Auto 5100 /uL (1500-7000); Neutrophils Percent Auto 67.4 % (50-75); Platelet Count 252 X10^3/uL (150-400); Red Blood Cell Count 3.83 X10^6/uL (4.0-5.2); Red Cell Distribution Width 15.2 % (11.6-14.8); White Blood Cell Count 7.6 X10^3/uL (4.5-11.0)
[2018-05-11 06:54] LABS: INR 1.9 (0.9-1.3); Prothrombin Time 21.7 SECONDS (10.1-12.7)
[2018-05-11 06:59] LABS: Alanine Aminotransferase 18 IU/L (9-52); Albumin 3.3 g/dL (3.5-5.0); Albumin Globulin Ratio 0.9 (1.0-2.8); Alkaline Phosphatase 79 U/L (38-126); Aspartate Aminotransferase 22 IU/L (14-36); BUN Creatinine Ratio 11.4 (6-22); Blood Urea Nitrogen 8 mg/dL (7-17); Calcium 8.8 mg/dL (8.4-10.2); Carbon Dioxide 25 mmol/L (22-32); Chloride 102 mmol/L (98-107); Estimated Glomerular Filt Rate > 60.0 mL/min (>60); Globulin 3.7 g/dL (1.7-4.1); Glucose 99 mg/dL (80-110); HEMOLYSIS < 15 (0-50); Magnesium 2.1 mg/dL (1.6-2.3); Potassium 3.3 mmol/L (3.4-5.1); Sodium 136 mmol/L (137-145)
[2018-05-11 07:00] VITALS: O2SAT 93
[2018-05-11 07:01] LABS: Bilirubin Total < 0.1 mg/dL (0.2-1.3)
[2018-05-11 07:48] VITALS: BP 124/70; PULSE 86; RESP 16; TEMP 37.2; O2SAT 97
[2018-05-11 08:48] VITALS: PULSE 70; RESP 16; O2SAT 94
--- NOTE | 2018-05-11 10:03 | P.DS_ITS ---
History of Present Illness Date Patient Seen: 05/11/18 Time Patient Seen: 10:21 Chief complaint: SOB Narrative: Ms Eboni Huerta is a 62-year-old female with a history of a bicuspid aortic valve status post aortic valve replacement, Meniere's disease, migraines and Raynaud syndrome who presents to the ER with shortness of breath and dyspnea on exertion. On 04/10/2018 patient was diagnosed with the flu and pneumonia and had an echo cardiogram done which found worsening aortic valve function. The patient had a bovine aortic valve replacement on 04/26/2018. The patient also had undergone a cardiac catheterization that time which showed clean coronary arteries. The patient did well postoperatively and was discharged without anticoagulation. The patient states she developed right anterior lateral chest pain on Sunday and then shortness of breath last night that was progressive t hroughout today prompting the patient to present to the ER for evaluation. The pain is described as pleuritic and is worse when leaning forward or sitting with her legs up and better sitting with her leg stand or standing. She has had associated palpitations but denies fevers or chills, cough or hemoptysis, nausea or vomiting. She has had no abdominal pain and denies constipation or diarrhea. A venous ultrasound is completed in the ER which finds the left popliteal DVT. A CT angio was not completed. Twelve lead EKG was completed which demonstrates a sinus rhythm with a ventricular rate of 82 without ectopy or block with diffuse ST and T-wave abnormalities. On lab analysis her CBC has white count of 11.1, hemoglobin of 11.2 and hematocrit 34.5 with platelets of 425. She had elevated total CK of 199 with normal MB and a low index. Her troponin is negative at 0.012. Her chemistries are essentially unremarkable with a nonfasting glucose of 111. Patient is admitted to the hospital for DVT and pulmonary embolism. Discharge Providers Date of admission: 05/07/18 20:05 Discharge Date: 05/11/18 Primary care physician: Aparna Mayo PA-C Consults: 05/07/18 21:28 Consult to Dietitian, Adult Routine Comment: Will be starting on coumadin Reason For Exam: DVT, PE Consult to Pastoral Services Routine Comment: pt request 05/07/18 22:25 Consult to Discharge Planning Routine Comment: Consult to Occupational Therapy Evaluate & Treat Comment: S/P AVR 04/26/18, DVT, PE Physician Instructions: Evaluate and treat 05/07/18 22:34 Consult to Physical Therapy Evaluate & Treat Comment: S/P AVR 04/26/18, DVT, PE Physician Instructions: Evaluate and Treat 05/08/18 01:38 Consult to Respiratory Therapy Evaluate & Treat Comment: PE, DVT, S/P AVR on 04/26/18 Physician Instructions: Evaluate and treat 05/09/18 15:53 Consult to Physical Therapy Evaluate & Treat Comment: Physician Instructions: Evaluate and Treat Discharge provider: Denise Escalante MD Summary Discharge Diagnosis: 1. Acute provoked DVT and presumed right-sided PE 2. Recent bioprosthetic aortic valve replacement 3. Meniere's disease, chronic 4. Raynaud syndrome 5. 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 She was admitted, treated with Lovenox and given Coumadin. Her INR to day is 1.9. Her pleuritic chest pain has improved. She is now stable for discharge, with plans to follow up INR in 2 days with her primary care PAC Gael. Status at Discharge Cognitive/behavioral status at discharge: oriented Functional status at discharge: independent ambulation Overall status at discharge: patient is back to baseline Time Spent with Patient Less than 30 minutes Exam Vital Signs (past 8 hours): - 05/11/18 06:00 05/11/18 07:00 05/11/18 07:48 Temperature 98.1 F 99.0 F Pulse Rate 85 86 Respiratory Rate 15 16 Blood Pressure 125/68 124/70 Pulse Oximetry 94 93 97 05/11/18 08:48 Temperature Pulse Rate 70 Respiratory Rate 16 Blood Pressure Pulse Oximetry 94 Fraction of Inspired Oxygen 21 Oxygen Delivery Method Room Air Oxygen Flow Rate 0 Narrative Exam Narrative: She is alert and oriented x3, in no apparent distress. she enjoys catching up on, and acquaintances and previous locations where we have worked together. The hemoglobin is 10.1 but this is postop. Heart is regular rate and rhythm without murmur. Lungs are clear to auscultation bilaterally. E xtremities have no ankle edema. She is afebrile and vital signs are stable. Her potassium is 3.3. Objective Labs Result Diagrams: 05/11/18 06:19 05/11/18 06:19 Labs: Laboratory Results - last 24 hr 05/10/18 05/11/18 05/11/18 05:50 06:00 06:19 WBC 7.6 RBC 3.83 L Hgb 10.1 L Hct 31.0 L MCV 80.8 MCH 26.5 MCHC 32.8 RDW 15.2 H Plt Count 252 Neut % (Auto) 67.4 Lymph % (Auto) 17.3 L [place] % (Auto) 9.1 Eos % (Auto) 5.2 H Baso % (Auto) 1.0 Neut # (Auto) 5100 Lymph # (Auto) 1300 [place] # (Auto) 700 Eos # (Auto) 400 Baso # (Auto) 100 PT INR Sodium Potassium Chloride Carbon Dioxide BUN Creatinine Estimated GFR BUN/Creatinine Ratio Glucose Calcium Magnesium 2.0 Total Bilirubin AST ALT Alkaline Phosphatase Total Protein Albumin Globulin Albumin/Globulin Ratio Urine Color Yellow Urine Appearance Clear Urine pH 5.0 Ur Specific [place] 1.010 Urine Protein Negative Urine Glucose (UA) Negative Urine Ketones Negative Urine Occult Blood Trace-intact Urine Nitrate Negative Urine Bilirubin Negative Urine Urobilinogen 0.2 Ur Leukocyte Esterase 1+ H Urine RBC 0-1/hpf Urine WBC 0-1/hpf Ur Squamous Epith Cells 1-5 /hpf Urine Bacteria Few (2-10) H Urine Mucus 1+ H Ur Culture Indicated? Specimen cultured 05/11/18 05/11/18 06:19 06:19 WBC RBC Hgb Hct MCV MCH MCHC RDW Plt Count Neut % (Auto) Lymph % (Auto) [place] % (Auto) Eos % (Auto) Baso % (Auto) Neut # (Auto) Lymph # (Auto) [place] # (Auto) Eos # (Auto) Baso # (Auto) PT 21.7 H INR 1.9 H Sodium 136 L Potassium 3.3 L Chloride 102 Carbon Dioxide 25 BUN 8 Creatinine 0.70 Estimated GFR > 60.0 BUN/Creatinine Ratio 11.4 Glucose 99 Calcium 8.8 Magnesium 2.1 Total Bilirubin < 0.1 L AST 22 ALT 18 Alkaline Phosphatase 79 Total Protein 7.0 Albumin 3.3 L Globulin 3.7 Albumin/Globulin Ratio 0.9 L Urine Color Urine Appearance Urine pH Ur Specific [place] Urine Protein Urine Glucose (UA) Urine Ketones Urine Occult Blood Urine Nitrate Urine Bilirubin Urine Urobilinogen Ur Leukocyte Esterase Urine RBC Urine WBC Ur Squamous Epith Cells Urine Bacteria Urine Mucus Ur Culture Indicated? Discharge Plan Discharge Plan Patient Disposition: Home Discharge comment: Follow up with PAC Gael in 2 days for INR check. Discharge Med Rec/Prescriptions Prescriptions: New warfarin [Coumadin] 5 mg Tablet 5 mg PO 1700 Qty: 30 RF: 0 Continued hydrocodone-acetaminophen 5-325 mg tablet 1 tab PO BEDTIME Qty: 20 RF: 0 prednisolone acetate [Omnipred] 1 % drops,suspension 1 drp OU BEDTIME Qty: 0 RF: 0 aspirin 81 mg Tablet,Chewable 81 mg PO DAILY RF: 0 cyclobenzaprine 5 mg Tablet 5 mg PO BEDTIME PRN (Reason: Muscle Pain) RF: 0 metoprolol tartrate 25 mg Tablet 12.5 mg PO BID RF: 0 prednisolone acetate 1 % drops,suspension 1 drp EYE-BOTH BEDTIME RF: 0 acetaminophen 325 mg Tablet 650 mg PO Q4HR PRN (Reason: As Needed For Fever/Mild Pain) Qty: 1 RF: 0 ipratropium-albuterol 0.5 mg-3 mg(2.5 mg base)/3 mL Solution For Nebulization 3 ml INH RTQ4HR Qty: 1 RF: 0 Follow up/Referrals: Aparna Mayo PA-C [Primary Care Provider] - Provider Discharge Instructions Diet: Diet as Tolerated Visit Report/Discharge Packet Instructions: DI for Heart Failure, DI for Deep Vein Thrombosis, DI for Pulmonary Embolism Discharge Data Primary Care Provider: Aaprna Mayo Attending Provider: Pablito Pendleton Admit Date/Time: 05/07/18 20:05
[2018-05-11] MEDS: ENOXAPARIN 100 MG/ML SYRINGE SUBCUT (10:06)
[2018-05-11] MEDS: METOPROLOL IR 25 MG TABLET 12.5 MG PO (10:09)
[2018-05-11 10:12] VITALS: PULSE 87; RESP 18; O2SAT 97
[2018-05-11] MEDS: POTASSIUM CHLORIDE 20 MEQ TAB 40 MEQ PO (11:34)
--- NOTE | 2018-05-11 13:41 | CM.DPC ---
DCP: continued: case discussed in Team Rounds. Pt is ok'd for home today. OT did work with her on energy conservation techniques and pt will have a friend staying with her for a couple of weeks. She will see her PCP in 2 days. Pt has already left for home as per plan
== END 2018-05-11 13:00 | disposition home or self-care (01) | DRG 176 ==
LOC: ED 19:18 → AC 05-08 06:59
PROVIDERS: Internal Medicine; Admitting Provider Nurse Practitioner Adult Health; Emergency Provider Emergency Medicine; Family Provider Physician Assistant; PCP Physician Assistant; Visit Provider Nurse Practitioner Adult Health
DX: I26.99 Other pulmonary embolism without acute cor pulmonale (principal); I82.432 Acute embolism and thrombosis of left popliteal vein; Z95.3 Presence of xenogenic heart valve; H81.09 Meniere's disease, unspecified ear; I73.00 Raynaud's syndrome without gangrene; Z98.890 Other specified postprocedural states; E78.5 Hyperlipidemia, unspecified
CPT/HCPCS: 36415; 36591; 71046; 74018; 80048; 80053; 81001; 82550; 82553; 83690; 83735; 83880; 84145; 84484; 85025; 85610; 85730; 87086; 93005; 93306; 93970; 94640; 94760; 94762; 96372; 96374; 97161; 97530; 99284; 99285; J1650; J1940; J3480

== ENCOUNTER 2018-05-29 18:56 | Emergency (ER) | payer OTHER, SELFPAY ==
[2018-05-07 20:15] VITALS: BMI 37.8
[2018-05-29 18:57] VITALS: BP 179/79; PULSE 85; RESP 20; TEMP 37.3; O2SAT 100
--- NOTE | 2018-05-29 19:08 | DI.CT.S_ITS ---
PROCEDURE: CT ANGIO CHEST ABDOMEN INDICATIONS: Sent by Cardiology for dissection CT TECHNIQUE: Precontrast 5 mm thick sections acquired from the lung apices to the iliac crests. After the administration of intravenous contrast, 2.5 mm thick sections again acquired from the lung apices to the iliac crests. 10 mm maximum intensity projection (MIP) oblique sagittal and coronal reformats were then acquired. For radiation dose reduction, the following was used: automated exposure control. COMPARISON: [facility], CT, PE STUDY (CTA CHEST), 10/09/2014, 11:31. FINDINGS: Image quality: Excellent. AORTA: No evidence of aneurysm or dissection. No periaortic hemorrhage. CHEST: Lungs and pleura: Subpleural consolidation seen within the posterior superior segment of the right lower lobe. Scattered atelectasis. No pleural effusions or pneumothorax. Central and peripheral airways are patent and normal in caliber. Mediastinum: Heart size is normal. No pericardial effusion. No mediastinal or hilar adenopathy by size criteria. Central pulmonary arteries are normal in size. Pulmonary embolism is seen at the distal right pulmonary artery. Esophagus is normal in caliber. Small hiatal hernia. Bones and chest wall: No axillary adenopathy by size criteria. Nonspecific hypodense nodules in the right lobe of the thyroid. No suspicious bony lesions. No vertebral body compression fractures. ABDOMEN: Vasculature: Celiac trunk and mesenteric arteries are patent. Renal arteries are also patent. Solid organs: Liver is normal in size and enhancement. Gallbladder surgically absent. Biliary system is non dilated. Pancreas enhances normally. Spleen is normal in size and enhancement. No adrenal nodules. Both kidneys are normal in size and enhancement, without hydronephrosis. Peritoneum and bowel: No free fluid or air. Bowel loops are normal in caliber and wall thickness. Nodes and vessels: No retroperitoneal or mesenteric adenopathy by size criteria. Inferior vena cava is normal in morphology. Bones: No suspicious bony lesions. No vertebral body compression fractures. Miscellaneous: No ventral hernias. IMPRESSION: No evidence of aortic dissection. Pulmonary embolism involving the distal right pulmonary artery. Multiple subpleural areas of nodular consolidation within the right lower lobe, potentially pulmonary infarcts however cannot exclude malignant or metastatic possibilities therefore recommend followup with noncontrast chest CT after treatment. Small hiatal hernia. Right thyroid nodule, nonspecific. This could be further assessed with dedicated thyroid ultrasound. Findings were personally telephoned and discussed with in the emergency department 2109 hours on 05/29/18. Dictated by: Lito Zepeda M.D. on 05/29/2018 at 21:01 Approved by: Lito Zepeda M.D. on 05/29/2018 at 21:09
--- NOTE | 2018-05-29 19:19 | ED.CHESTPAIN ---
HPI - Chest Pain General Chief Complaint: Chest Pain Stated Complaint: back pain Time Seen by Provider: 05/29/18 19:06 Source: patient Mode of arrival: ambulatory Limitations: no limitations History of Present Illness HPI narrative: 62-year-old female who recently underwent a open aortic valve replacement with a porcine valve. Is also being treated for hypertension. Was at her independent agent music education visit today as a scheduled follow-up visit. Mention to her independent agent music education that she was having back pain over the past couple days. Has been coming and going. She states that she has had it for about 50% of the day today. She states she received a call from her independent agent music education informing her to come to the emergency department to be evaluated for an aortic dissection. She is on Coumadin for a right-sided pulmonary embolism. Related Data Home Medications Medication Instructions Recorded Confirmed metoprolol tartrate 12.5 mg PO BID 05/07/18 05/13/18 prednisolone acetate 1 % eye 1 drop EYE-BOTH 2XW ml 05/13/18 05/13/18 drops,suspension Previous Rx's Medication Instructions Recorded hydrocodone 5 mg-acetaminophen 325 1 tab PO BEDTIME #20 tab 04/03/18 mg tablet acetaminophen 650 mg PO Q4HR PRN #1 tab 04/11/18 warfarin [Coumadin] 5 mg PO 1700 #30 tab 05/11/18 Allergies Allergy/AdvReac Type Severity Reaction Status Date / Time diphenhydramine Allergy Severe Vicious Verified 05/13/18 10:59 [From BENSADIQL] nightmares codeine [CODEINE] AdvReac Mild ITCHING Verified 05/13/18 10:59 meperidine [MEPERIDINE] AdvReac Mild LOCAL Verified 05/13/18 10:59 REACTION TO IV USE oxycodone [OXYCODONE] AdvReac Mild HEADACHE Verified 05/13/18 10:59 Review of Systems Constitutional Denies fever(s) and Denies headache(s) ENT Ears, Nose, Mouth, and Throat: Denies dizziness and Denies headache(s) Cardiovascular Denies chest pain, Denies pedal edema, Denies edema, Denies palpitations and Denies dyspnea Respiratory Denies dyspnea Gastrointestinal Gastrointestinal: Denies abdominal pain, Denies nausea and Denies vomiting Genitourinary Denies dysuria Musculoskeletal Reports back pain, Denies myalgias and Denies arthralgias Integumentary/Breasts Denies rash Neurologic Denies dizziness and Denies headache(s) Endocrine Denies palpitations Hematologic/Lymphatic Comments: On Coumadin Allergic/Immunologic Denies urticaria [facility] Medical History Bicuspid aortic valve (Acute) Fuchs' corneal dystrophy (Acute) Hypertension (Acute) Menieres syndrome (Acute) Migraines (Acute) Raynauds phenomenon (Acute) Surgical History (Updated 05/13/18 @ 14:09 by Aparna Mayo PA-C) Aortic valve replaced (Acute) History of corneal transplant (Acute) History of parotidectomy (Acute) Status post appendectomy Status post hysterectomy Status post laparoscopic cholecystectomy Family History Father No problems noted. Mother No problems noted. Brother Hodgkins disease Social History household members: none Smoking Status: Never smoker second hand exposure: No alcohol intake: current (it's rare.) substance use type: does not use Social History household members: none Smoking Status: Never smoker second hand exposure: No alcohol intake: current (it's rare.) substance use type: does not use Exam Initial Vital Signs Initial Vital Signs: Vital Signs Temperature 99.2 F 05/29/18 18:57 Pulse Rate 85 05/29/18 18:57 Respiratory Rate 20 05/29/18 18:57 Blood Pressure 179/79 H 05/29/18 18:57 Pulse Oximetry 100 05/29/18 18:57 Const General: cooperative, healthy appearing, comfortable, well developed, well groomed and No acute distress Orientation: alert, awake and oriented x3 HENMT Head: normal to inspection and normocephalic Resp Effort & Inspection: normal respiratory effort Auscultation: clear to auscultation bilaterally Cardio Rate: regular rate Rhythm: regular rhythm and other (Frequent PVCs) Heart Sounds: murmur Pulses: radial pulses present Back/Spine/Pelvis Other: No tenderness to palpation of the thoracic or cervical spine Skin Lesions: no lesions Rashes: no rashes Neuro General: alert, awake and oriented x3 Cognition: normal cognition Speech: speech normal Extrem General: normal to inspection and capillary refill normal Psych Appearance: grossly normal and well kempt Course Orders Ordered: ED Orders 05/29/18 19:08 CT angio chest abdomen Stat 05/29/18 19:09 EKG-12 Lead Stat 05/29/18 19:30 Complete Blood Count AUTO DIFF Stat Comprehensive Metabolic Panel Stat Lipase Stat Partial Thromboplastin Time Stat Prothrombin Time INR Stat Troponin I Stat 05/29/18 21:39 Troponin I Stat Discontinued Medications Sodium Chloride (Normal Saline 0.9%) 1,000 mls @ 1,000 mls/hr IV BOLUS ONE Stop: 05/29/18 20:07 Last Admin: 05/29/18 21:48 Dose: Not Given Lisinopril (Zestril) 2.5 mg PO NOW ONE Stop: 05/29/18 21:39 Last Admin: 05/29/18 21:47 Dose: 2.5 mg Vital Signs - 8 hr 05/29/18 18:57 05/29/18 20:00 05/29/18 21:30 Temperature 99.2 F Pulse Rate 85 46 L 92 H Respiratory Rate 20 23 22 Blood Pressure 179/79 H Blood Pressure [Right Arm] 185/85 H 187/75 H Pulse Oximetry 100 97 93 05/29/18 21:47 Temperature Pulse Rate 80 Respiratory Rate Blood Pressure 187/95 H Blood Pressure [Right Arm] Pulse Oximetry MDM - Chest Pain Lab Data Attestation: I reviewed the patient's lab results. Result diagrams: 05/29/18 19:30 05/29/18 19:30 Lab Results 05/29/18 05/29/18 05/29/18 Range/Units 19:30 19:30 19:30 WBC 7.7 (4.5-11.0) X10^3/uL RBC 4.49 (4.0-5.2) X10^6/uL Hgb 11.9 L (12.0-16.0) g/dL Hct 36.0 (36-46) % MCV 80.1 (80-100) fL MCH 26.4 (26-34) PG MCHC 33.0 (30-36) % RDW 16.0 H (11.6-14.8) % Plt Count 295 (150-400) X10^3/uL Neut % (Auto) 67.5 (50-75) % Lymph % (Auto) 20.5 L (25-40) % [place] % (Auto) 8.3 (3-14) % Eos % (Auto) 3.2 (2-4) % Baso % (Auto) 0.5 (0-2) % Neut # (Auto) 5200 (4788-8881) /uL Lymph # (Auto) 1600 (7513-6508) /uL [place] # (Auto) 600 (0-900) /uL Eos # (Auto) 200 (0-450) /uL Baso # (Auto) 0 (0-100) /uL PT 29.4 H (10.1-12.7) SECONDS INR 2.5 H (0.9-1.3) APTT 40 H D (26.4-36.2) SECONDS Sodium 137 (137-145) mmol/L Potassium 3.5 (3.4-5.1) mmol/L Chloride 102 (98-107) mmol/L Carbon Dioxide 25 (22-32) mmol/L BUN 16 (7-17) mg/dL Creatinine 0.90 (0.52-1.04) mg/dL Estimated GFR > 60.0 (>60) mL/min BUN/Creatinine Ratio 17.8 (6-22) Glucose 116 H (80-110) mg/dL Calcium 9.3 (8.4-10.2) mg/dL Total Bilirubin 0.3 (0.2-1.3) mg/dL AST 22 (14-36) IU/L ALT 21 (9-52) IU/L Alkaline Phosphatase 85 (38-126) U/L Troponin I (0.01-0.034) ng/mL Total Protein 8.1 (6.3-8.2) g/dL Albumin 4.2 (3.5-5.0) g/dL Globulin 3.9 (1.7-4.1) g/dL Albumin/Globulin Ratio 1.1 (1.0-2.8) Lipase (23-300) U/L 05/29/18 05/29/18 Range/Units 19:30 21:39 WBC (4.5-11.0) X10^3/uL RBC (4.0-5.2) X10^6/uL Hgb (12.0-16.0) g/dL Hct (36-46) % MCV (80-100) fL MCH (26-34) PG MCHC (30-36) % RDW (11.6-14.8) % Plt Count (150-400) X10^3/uL Neut % (Auto) (50-75) % Lymph % (Auto) (25-40) % [place] % (Auto) (3-14) % Eos % (Auto) (2-4) % Baso % (Auto) (0-2) % Neut # (Auto) (9996-7072) /uL Lymph # (Auto) (4989-0257) /uL [place] # (Auto) (0-900) /uL Eos # (Auto) (0-450) /uL Baso # (Auto) (0-100) /uL PT (10.1-12.7) SECONDS INR (0.9-1.3) APTT (26.4-36.2) SECONDS Sodium (137-145) mmol/L Potassium (3.4-5.1) mmol/L Chloride (98-107) mmol/L Carbon Dioxide (22-32) mmol/L BUN (7-17) mg/dL Creatinine (0.52-1.04) mg/dL Estimated GFR (>60) mL/min BUN/Creatinine Ratio (6-22) Glucose (80-110) mg/dL Calcium (8.4-10.2) mg/dL Total Bilirubin (0.2-1.3) mg/dL AST (14-36) IU/L ALT (9-52) IU/L Alkaline Phosphatase (38-126) U/L Troponin I < 0.012 < 0.012 (0.01-0.034) ng/mL Total Protein (6.3-8.2) g/dL Albumin (3.5-5.0) g/dL Globulin (1.7-4.1) g/dL Albumin/Globulin Ratio (1.0-2.8) Lipase 106 (23-300) U/L Imaging Data CT scan - chest: Radiologist's impression: [address] [address] [address] Scan Report Signed Patient: Eboni Huerta CMR#: [id number] : 4Acct:[id number] Age/Sex: 62 / FDate of Service: 05/29/18 Loc: ED Accession Number: [id number] Procedure: CT angio chest abdomen Ordering Provider: Alejandro Samayoa D.O. PROCEDURE: CT ANGIO CHEST ABDOMEN INDICATIONS: Sent by Cardiology for dissection CT TECHNIQUE: Precontrast 5 mm thick sections acquired from the lung apices to the iliac crests. After the administration of intravenous contrast, 2.5 mm thick sections again acquired from the lung apices to the iliac crests. 10 mm maximum intensity projection (MIP) oblique sagittal and coronal reformats were then acquired. For radiation dose reduction, the following was used: automated exposure control. COMPARISON: [facility], CT, PE STUDY (CTA CHEST), 10/09/2014, 11:31. FINDINGS: Image quality: Excellent. AORTA: No evidence of aneurysm or dissection. No periaortic hemorrhage. CHEST: Lungs and pleura: Subpleural consolidation seen within the posterior superior segment of the right lower lobe. Scattered atelectasis. No pleural effusions or pneumothorax. Central and peripheral airways are patent and normal in caliber. Mediastinum: Heart size is normal. No pericardial effusion. No mediastinal or hilar adenopathy by size criteria. Central pulmonary arteries are normal in size. Pulmonary embolism is seen at the distal right pulmonary artery. Esophagus is normal in caliber. Small hiatal hernia. Bones and chest wall: No axillary adenopathy by size criteria. Nonspecific hypodense nodules in the right lobe of the thyroid. No suspicious bony lesions. No vertebral body compression fractures. ABDOMEN: Vasculature: Celiac trunk and mesenteric arteries are patent. Renal arteries are also patent. Solid organs: Liver is normal in size and enhancement. Gallbladder surgically absent. Biliary system is non dilated. Pancreas enhances normally. Spleen is normal in size and enhancement. No adrenal nodules. Both kidneys are normal in size and enhancement, without hydronephrosis. Peritoneum and bowel: No free fluid or air. Bowel loops are normal in caliber and wall thickness. Nodes and vessels: No retroperitoneal or mesenteric adenopathy by size criteria. Inferior vena cava is normal in morphology. Bones: No suspicious bony lesions. No vertebral body compression fractures. Miscellaneous: No ventral hernias. IMPRESSION: No evidence of aortic dissection. Pulmonary embolism involving the distal right pulmonary artery. Multiple subpleural areas of nodular consolidation within the right lower lobe, potentially pulmonary infarcts however cannot exclude malignant or metastatic possibilities therefore recommend followup with noncontrast chest CT after treatment. Small hiatal hernia. Right thyroid nodule, nonspecific. This could be further assessed with dedicated thyroid ultrasound. Findings were personally telephoned and discussed with in the emergency department 2109 hours on 05/29/18. Dictated by: Lito Zepeda M.D. on 05/29/2018 at 21:01 Approved by: Lito Zepeda M.D. on 05/29/2018 at 21:09 ECG Data Attestation: I personally reviewed and interpreted this ECG as follows: Prior ECG tracings: not available for review Interpretation: Sinus rhythm Ventricular rate of 92 Frequent PVCs Normal QRS Normal QTC LVH MDM Narrative Medical decision making narrative: Patient not in any respiratory distress. The pulmonary embolism seen on her CT scan today his known. She is on Coumadin. Her INR is 2.5. There is no dissection on the CT scan. Her troponins are negative x2. No EKG changes consistent with ST-elevation [place]. We did discuss the other findings on her CT scan to include the lung nodules and the thyroid nodule. Patient knows about the thyroid nodules. I informed her that she did need to follow up with her primary doctor regarding these 2 findings. There were incidental today. We discussed return precautions. We discussed follow-up instructions. She is going to contact her independent agent music education tomorrow. Patient expressed understanding and agreement with plan. Discharge Plan Departure Patient Disposition: Home Clinical Impression: Hypertension Qualifiers: Hypertension type: unspecified Qualified Code(s): I10 - Essential (primary) hypertension Back pain Qualifiers: Back pain location: thoracic back pain Chronicity: acute Back pain laterality: midline Qualified Code(s): M54.6 - Pain in thoracic spine Instructions: Recommendations to Help Prevent High Blood Pressure Activity Restrictions/Additional Instructions: Continue all of your medications as directed. Your INR this evening was 2.5. Contact your independent agent music education tomorrow to discuss follow-up. Return to the emergency department for any new or worsening symptoms Prescriptions: No Action prednisolone acetate [Omnipred] 1 % drops,suspension 1 drop EYE-BOTH 2XW RF: 0 hydrocodone-acetaminophen 5-325 mg tablet 1 tab PO BEDTIME Qty: 20 RF: 0 metoprolol tartrate 25 mg Tablet 12.5 mg PO BID RF: 0 warfarin [Coumadin] 5 mg Tablet 5 mg PO 1700 Qty: 30 RF: 0 acetaminophen 325 mg Tablet 650 mg PO Q4HR PRN (Reason: As Needed For Fever/Mild Pain) Qty: 1 RF: 0 Referrals: Aparna Mayo PA-C [Primary Care Provider] -
[2018-05-29 19:43] LABS: Add Manual Diff / Slide Review NO; Basophils Absolute Auto 0 /uL (0-100); Basophils Percent Auto 0.5 % (0-2); Eosinophils Absolute Auto 200 /uL (0-450); Eosinophils Percent Auto 3.2 % (2-4); Hemoglobin 11.9 g/dL (12.0-16.0); Lymphocytes Absolute Auto 1600 /uL (1100-4500); Lymphocytes Percent Auto 20.5 % (25-40); Mean Corpuscular Hemoglobin 26.4 PG (26-34); Mean Corpuscular Volume 80.1 fL (80-100); Monocytes Absolute Auto 600 /uL (0-900); Monocytes Percent Auto 8.3 % (3-14); Neutrophils Absolute Auto 5200 /uL (1500-7000); Neutrophils Percent Auto 67.5 % (50-75); Platelet Count 295 X10^3/uL (150-400); Red Blood Cell Count 4.49 X10^6/uL (4.0-5.2); White Blood Cell Count 7.7 X10^3/uL (4.5-11.0)
[2018-05-29 19:49] LABS: INR 2.5 (0.9-1.3); Prothrombin Time 29.4 SECONDS (10.1-12.7)
[2018-05-29 19:52] LABS: PTT Partial Thromboplastin Tim 40 SECONDS (26.4-36.2)
[2018-05-29 20:00] VITALS: BP 185/85; PULSE 46; RESP 23; O2SAT 97
[2018-05-29 20:01] LABS: Lipase 106 U/L (23-300)
[2018-05-29 20:02] LABS: Alanine Aminotransferase 21 IU/L (9-52); Albumin 4.2 g/dL (3.5-5.0); Albumin Globulin Ratio 1.1 (1.0-2.8); Alkaline Phosphatase 85 U/L (38-126); Aspartate Aminotransferase 22 IU/L (14-36); BUN Creatinine Ratio 17.8 (6-22); Bilirubin Total 0.3 mg/dL (0.2-1.3); Blood Urea Nitrogen 16 mg/dL (7-17); Calcium 9.3 mg/dL (8.4-10.2); Carbon Dioxide 25 mmol/L (22-32); Chloride 102 mmol/L (98-107); Estimated Glomerular Filt Rate > 60.0 mL/min (>60); Globulin 3.9 g/dL (1.7-4.1); Glucose 116 mg/dL (80-110); HEMOLYSIS < 15 (0-50); Potassium 3.5 mmol/L (3.4-5.1); Sodium 137 mmol/L (137-145); Total Protein 8.1 g/dL (6.3-8.2)
[2018-05-29 20:14] LABS: Troponin I < 0.012 ng/mL (0.01-0.034)
[2018-05-29 21:30] VITALS: BP 187/75; PULSE 92; RESP 22; O2SAT 93
[2018-05-29 21:47] VITALS: BP 187/95; PULSE 80
[2018-05-29] MEDS: LISINOPRIL 5 MG TABLET 2.5 MG PO (21:47)
[2018-05-29 22:15] LABS: Troponin I < 0.012 ng/mL (0.01-0.034)
[2018-05-29 22:37] VITALS: BP 187/74; PULSE 90; O2SAT 96
== END 2018-05-29 22:47 | disposition home or self-care (01) ==
PROVIDERS: Emergency Provider Emergency Medicine; Family Provider Physician Assistant; PCP Physician Assistant
DX: I10 Essential (primary) hypertension (principal); M54.6 Pain in thoracic spine; Z95.4 Presence of other heart-valve replacement; Z79.01 Long term (current) use of anticoagulants
CPT/HCPCS: 36415; 36591; 71275; 74175; 80053; 83690; 84484; 85025; 85610; 85730; 93005; 99283; 99285; Q9967

== ENCOUNTER → 2018-07-26 14:33 | Outpatient (CLI) | payer OTHER, SELFPAY ==
[2018-05-30 10:08] VITALS: BMI 37.8
--- NOTE | 2018-07-26 14:35 | DI.US.S_ITS ---
PROCEDURE: US THYROID INDICATIONS: THYROID NODULES TECHNIQUE: Real-time scanning was performed of the thyroid gland, with image documentation. COMPARISON: None. FINDINGS: Right: Thyroid lobe measures 4.5 x 2.1 x 2.4 cm, and is homogeneous in echotexture. Left: Thyroid lobe measures 4.1 x 1.5 x 1.5 cm, and is homogenous in echotexture. Isthmus: 4 mm thick. Nodule number: #1 Location: Midpole of right thyroid lobe Size: 3.7 x 2 x 2.1 cm. Composition: Predominantly solid Echogenicity: Hypoechoic Shape: Wider than tall Margins: Smooth Echogenic foci: Punctate Total points: 7 ACR TI-RADS category: 5, highly suspicious. Nodule number: #2 Location: Midpole left thyroid lobe Size: 2 x 1.2 x 1.1 cm. Composition: Solid Echogenicity: Hypoechoic Shape: Wider than tall Margins: Smooth Echogenic foci: Punctate Total points: 7 ACR TI-RADS category: 5, highly suspicious. IMPRESSION: Bilateral highly suspicious thyroid nodules as described above, suggest FNA of these nodules for further evaluation. ACR TI-RADS definitions and recommendations: TI-RADS 1 (benign): 0 points. FNA not needed. TI-RADS 2 (not suspicious): 2 points. FNA not needed. TI-RADS 3 (mildly suspicious): 3 points. * FNA if 2.5 cm or larger, follow up if 1.5 cm or larger (at 1, 3, and 5 years). TI-RADS 4 (moderately suspicious): 4-6 points. * FNA if 1.5 cm or larger, follow up if 1 cm or larger (at 1, 2, 3, and 5 years). TI-RADS 5 (highly suspicious): 7 points or more. * FNA if 1 cm or larger, follow up if 0.5 cm or larger (every year for 5 years). Dictated by: Timothy Arce M.D. on 07/26/2018 at 15:41 Approved by: Timothy Arce M.D. on 07/26/2018 at 15:44
[2018-07-26 17:06] LABS: Free T3, Triiodothyronine Free 3.85 pg/mL (2.77-5.27); Free T4, Direct Thyroxine 1.17 ng/dL (0.78-2.19)
[2018-07-26 17:20] LABS: Thyroid Stimulating Hormone 1.11 uIU/mL (0.47-4.68)
== END ==
PROVIDERS: Family Provider Physician Assistant; PCP Physician Assistant; Visit Provider Physician Assistant
DX: E04.2 Nontoxic multinodular goiter (principal)
CPT/HCPCS: 36415; 76536; 84439; 84443; 84481

== ENCOUNTER → 2018-09-18 16:35 | Outpatient (CLI) | payer OTHER, SELFPAY ==
[2018-05-30 10:08] VITALS: BMI 37.8
[2018-09-18 18:39] LABS: Free T3, Triiodothyronine Free 3.32 pg/mL (2.77-5.27); Free T4, Direct Thyroxine 1.08 ng/dL (0.78-2.19)
[2018-09-18 18:52] LABS: Thyroid Stimulating Hormone 1.03 uIU/mL (0.47-4.68)
== END ==
PROVIDERS: Family Provider Physician Assistant; PCP Physician Assistant; Visit Provider Physician Assistant
DX: E04.2 Nontoxic multinodular goiter (principal)
CPT/HCPCS: 36415; 84439; 84443; 84481

== ENCOUNTER 2018-10-23 22:06 | Emergency (ER) | payer OTHER, SELFPAY ==
[2018-05-30 10:08] VITALS: BMI 37.8
[2018-10-23 22:16] VITALS: BP 136/69; PULSE 72; RESP 18; TEMP 36.6; O2SAT 98
--- NOTE | 2018-10-23 22:54 | ED_ITS ---
HPI - Epistaxis General Chief complaint: Nasal Problem Stated complaint: nose bleed, on coumadin Time Seen by Provider: 10/23/18 22:41 Source: patient Mode of arrival: ambulatory Limitations: no limitations History of Present Illness HPI Narrative: Patient is a 62-year-old female who presents with epistaxis and her right ear. She is on Coumadin for PE and cardiac bowel for placement. She says they have had difficulty with her INR however last week it was 3.1 for the 1st time. It usually is to or below. She has had a nasal clamp on for the last 45 minutes while waiting in the ED. It is not dripping down her throat. She just could not get it to stop. Epistaxis now seems controlled. MD complaint: epistaxis Location: right nostril Onset (ago): hour(s) Duration: now resolved Context: warfarin use Related Data Home Medications Medication Instructions Recorded Confirmed prednisolone acetate 1 % eye 1 drop EYE-BOTH 2XW ml 05/13/18 09/18/18 drops,suspension furosemide 20 mg tablet 20 mg PO DAILY PRN 06/12/18 09/18/18 potassium chloride 20 mEq 20 meq PO DAILY PRN 06/12/18 09/18/18 tablet,extended release metoprolol tartrate 25 mg tablet 25 mg PO DAILY PRN tab 07/23/18 09/18/18 warfarin 5 mg tablet See Rx Instructions PO DAILY 09/18/18 09/18/18 Previous Rx's Medication Instructions Recorded acetaminophen 650 mg PO Q4HR PRN #1 tab 04/11/18 lisinopril 5 mg tablet 5 mg PO DAILY #90 tab 09/29/18 Allergies Allergy/AdvReac Type Severity Reaction Status Date / Time diphenhydramine Allergy Severe Vicious Verified 09/18/18 15:48 [From BENADRYL] nightmares codeine [CODEINE] AdvReac Mild ITCHING Verified 09/18/18 15:48 meperidine [MEPERIDINE] AdvReac Mild LOCAL Verified 09/18/18 15:48 REACTION TO IV USE oxycodone [OXYCODONE] AdvReac Mild HEADACHE Verified 09/18/18 15:48 Review of Systems Review of Systems Narrative: GENERAL: Denies chills,fever HEENT: See HPI Denies throat pain RESPIRATORY: Denies dyspnea, cough, wheezing CARDIOVASCULAR: Denies chest pain, palpitations GASTROINTESTINAL: Denies nausea, vomiting MUSCULOSKELETAL: Denies extremity pain, injury SKIN: No rash, no laceration, no pruritus NEUROLOGIC: Denies weakness, dizziness, headache, numbness 8 point review of systems is negative except for those stated above and HPI [facility] Medical History (Updated 10/24/18 @ 01:49 by Sania Cosby DO) Bicuspid aortic valve (Acute) Fuchs' corneal dystrophy (Acute) Hypertension (Acute) Menieres syndrome (Acute) Migraines (Acute) Pulmonary embolism (Chronic) Raynauds phenomenon (Acute) Surgical History Aortic valve replaced (Acute) History of corneal transplant (Acute) History of parotidectomy (Acute) Status post appendectomy Status post hysterectomy Status post laparoscopic cholecystectomy Family History Father No problems noted. Mother No problems noted. Brother Hodgkins disease Social History household members: none Smoking Status: Never smoker second hand exposure: No alcohol intake: current substance use type: does not use Family History Father No problems noted. Mother No problems noted. Brother Hodgkins disease Social History household members: none Smoking Status: Never smoker second hand exposure: No alcohol intake: current substance use type: does not use Exam Initial Vital Signs Initial Vital Signs: Vital Signs Temperature 97.9 F 10/23/18 22:16 Pulse Rate 72 10/23/18 22:16 Respiratory Rate 18 10/23/18 22:16 Blood Pressure 136/69 10/23/18 22:16 Pulse Oximetry 98 10/23/18 22:16 GENERAL: Well-appearing, well-nourished and in no acute distress. HEENT: Head atraumatic,EOMI, pupils reactive, face symmetric, moist mucous membranes NOSE: No active bleeding noted in the right near. CARDIOVASCULAR: Regular rate and rhythm without murmurs, rubs or gallops. RESPIRATORY: Breath sounds equal bilaterally, no wheezes rales or rhonchi. ABDOMEN: Soft, nontender. Normoactive bowel sounds all 4 quadrants. No guarding or rebound. EXTREMITIES: Normal range of motion, no clubbing or edema. Neurovascularly intact NEUROLOGICAL: Alert and oriented x4.Normal gait and speech. Cranial nerves II through XII grossly intact. SKIN: Warm, dry, no laceration, no petechiae, no rashes or lesions. Course Vital Signs Vital signs: Vital Signs - 8 hr 10/23/18 22:16 10/23/18 23:20 Temperature 97.9 F Pulse Rate 72 64 Respiratory Rate 18 18 Blood Pressure 136/69 120/60 Pulse Oximetry 98 MDM - Epistaxis MDM Narrative Medical decision making narrative: We discussed checking INR however bleeding stopped relatively easily. With a nasal clamp only no active bleeding noted. She has no signs of posterior nosebleed. Discussed with her how to stop epistaxis at home if it should restart also she would probably need her INR rechecked at that time. Discharge Plan Departure Patient Disposition: Home Clinical Impression: Epistaxis Discharge Date/Time: 10/23/18 23:21 Instructions: DI for Nosebleed Activity Restrictions/Additional Instructions: *You have been diagnosed with nosebleed *What to do: Use nasal clamp for 30-60 minutes at a time to help with nose bleed. Have INR checked next week. *Continue to take medications as directed Continue Coumadin as scheduled and plan *Follow up with your primary care provider in 2-3 days *Return to ER if you should have increasing bleeding. Bleeding not stopping with nose clamp. or any new, worsening or concerning symptoms Prescriptions: No Action prednisolone acetate [Omnipred] 1 % drops,suspension 1 drop EYE-BOTH 2XW RF: 0 lisinopril 5 mg tablet 5 mg PO DAILY Qty: 90 RF: 3 potassium chloride 20 mEq tablet extended release 20 meq PO DAILY PRNRF: 0 furosemide 20 mg tablet 20 mg PO DAILY PRNRF: 0 metoprolol tartrate 25 mg tablet 25 mg PO DAILY PRNRF: 0 warfarin 5 mg tablet See Rx Instructions PO DAILY RF: 0 acetaminophen 325 mg Tablet 650 mg PO Q4HR PRN (Reason: As Needed For Fever/Mild Pain) Qty: 1 RF: 0 Referrals: Aparna Mayo PA-C [Primary Care Provider] -
[2018-10-23 23:20] VITALS: BP 120/60; PULSE 64; RESP 18
== END 2018-10-23 23:21 | disposition home or self-care (01) ==
PROVIDERS: Emergency Provider Emergency Medicine; Family Provider Physician Assistant; PCP Physician Assistant
DX: R04.0 Epistaxis (principal); Z79.01 Long term (current) use of anticoagulants
CPT/HCPCS: 99282

== ENCOUNTER → 2019-01-27 12:18 | Outpatient (CLI) | payer OTHER, SELFPAY ==
[2018-05-30 10:08] VITALS: BMI 37.8
[2019-01-27 14:11] LABS: Add Manual Diff / Slide Review NO; Basophils Absolute Auto 100 /uL (0-100); Basophils Percent Auto 0.8 % (0-2); Eosinophils Absolute Auto 200 /uL (0-450); Eosinophils Percent Auto 2.8 % (2-4); Hematocrit 38.3 % (36-46); Hemoglobin 12.7 g/dL (12.0-16.0); Lymphocytes Absolute Auto 1400 /uL (1100-4500); Lymphocytes Percent Auto 21.3 % (25-40); Mean Corpuscular HGB Conc 33.1 % (30-36); Mean Corpuscular Hemoglobin 27.5 PG (26-34); Mean Corpuscular Volume 83.2 fL (80-100); Monocytes Absolute Auto 500 /uL (0-900); Monocytes Percent Auto 6.9 % (3-14); Neutrophils Absolute Auto 4600 /uL (1500-7000); Neutrophils Percent Auto 68.2 % (50-75); Platelet Count 300 X10^3/uL (150-400); Red Cell Distribution Width 14.6 % (11.6-14.8); White Blood Cell Count 6.7 X10^3/uL (4.5-11.0)
[2019-01-27 15:02] LABS: Free T3, Triiodothyronine Free 4.34 pg/mL (2.77-5.27)
[2019-01-27 15:15] LABS: Alanine Aminotransferase 19 IU/L (<35); Albumin 4.2 g/dL (3.5-5.0); Albumin Globulin Ratio 1.2 (1.0-2.8); Alkaline Phosphatase 74 U/L (38-126); Aspartate Aminotransferase 31 IU/L (14-36); BUN Creatinine Ratio 16.7 (6-22); Bilirubin Total 0.3 mg/dL (0.2-1.3); Blood Urea Nitrogen 15 mg/dL (7-17); Calcium 8.8 mg/dL (8.4-10.2); Carbon Dioxide 27 mmol/L (22-32); Chloride 102 mmol/L (98-107); Estimated Glomerular Filt Rate > 60.0 mL/min (>60); Globulin 3.6 g/dL (1.7-4.1); Glucose 101 mg/dL (80-110); HEMOLYSIS < 15 (0-50); Potassium 4.1 mmol/L (3.4-5.1); Sodium 137 mmol/L (137-145); Thyroid Stimulating Hormone 1.29 uIU/mL (0.47-4.68); Total Protein 7.8 g/dL (6.3-8.2)
[2019-01-31 10:25] LABS: Thyroid Peroxidase Antibodies < 1 IU/mL (< 9)
== END ==
PROVIDERS: PCP Physician Assistant; Visit Provider Physician Assistant
DX: E04.2 Nontoxic multinodular goiter (principal); E78.5 Hyperlipidemia, unspecified; I10 Essential (primary) hypertension; Z86.711 Personal history of pulmonary embolism; H81.09 Meniere's disease, unspecified ear; R06.00 Dyspnea, unspecified
CPT/HCPCS: 36415; 80053; 84439; 84443; 84481; 85025; 86376

== ENCOUNTER → 2019-08-22 13:45 | Outpatient (CLI) | payer MEDICARE, OTHER, SELFPAY ==
[2018-05-30 10:08] VITALS: BMI 37.8
--- NOTE | 2019-08-22 | DI.US.S_ITS ---
PROCEDURE: US THYROID INDICATIONS: NONTOXIC MULTINODULE TECHNIQUE: Real-time scanning was performed of the thyroid gland, with image documentation. COMPARISON: [facility], US, US THYROID, 07/26/2018, 14:49. FINDINGS: Right: Thyroid lobe measures 5.4 x 2.3 x 2.6 cm, and is diffusely heterogeneous in echotexture. Left: Thyroid lobe measures 4.0 x 1.7 x 1.4 cm, and is diffusely heterogeneous in echotexture. Isthmus: 3.0 mm thick. Nodule number: 1 Location: Right mid Size: Unchanged at 3.8 x 2.1 x 2.7 cm. Composition: Predominantly solid Echogenicity: Hypoechoic Shape: wider than tall. Margins: Smooth Echogenic foci: None Total points: 4 ACR TI-RADS category: Moderately suspicious Nodule number: 2 Location: Left mid Size: Unchanged at 2.3 x 1.1 x 1.4 cm. Composition: Solid Echogenicity: Hypoechoic Shape: wider than tall. Margins: Smooth Echogenic foci: None Total points: 4 ACR TI-RADS category: Moderately suspicious IMPRESSION: Stable appearance of bilateral thyroid nodules. Recommend continued followup ultrasound as detailed below. ACR TI-RADS definitions and recommendations: TI-RADS 1 (benign): 0 points. FNA not needed. TI-RADS 2 (not suspicious): 2 points. FNA not needed. TI-RADS 3 (mildly suspicious): 3 points. * FNA if 2.5 cm or larger, follow up if 1.5 cm or larger (at 1, 3, and 5 years). TI-RADS 4 (moderately suspicious): 4-6 points. * FNA if 1.5 cm or larger, follow up if 1 cm or larger (at 1, 2, 3, and 5 years). TI-RADS 5 (highly suspicious): 7 points or more. * FNA if 1 cm or larger, follow up if 0.5 cm or larger (every year for 5 years). Dictated by: Oscar GUZMAN Interpreted: Giulia Moreno MD on 08/22/2019 at 15:43 Approved by: Giulia Moreno M.D. on 08/22/2019 at 18:18
== END ==
PROVIDERS: PCP Family Medicine; Referring Provider Internal Medicine Endocrinology, Diabetes & Metabolism; Visit Provider Internal Medicine Endocrinology, Diabetes & Metabolism
DX: E04.2 Nontoxic multinodular goiter (principal)
CPT/HCPCS: 76536

== ENCOUNTER → 2019-10-17 16:16 | Outpatient (CLI) | payer MEDICARE, OTHER, SELFPAY ==
[2018-05-30 10:08] VITALS: BMI 37.8
[2019-10-17 18:26] LABS: BUN Creatinine Ratio 14.8 (6-22); Blood Urea Nitrogen 18 mg/dL (7-17); Calcium 9.2 mg/dL (8.4-10.2); Carbon Dioxide 31 mmol/L (22-32); Chloride 103 mmol/L (98-107); Estimated Glomerular Filt Rate 44.2 mL/min (>60); Glucose 115 mg/dL (80-110); HEMOLYSIS < 15 (0-50); Potassium 4.5 mmol/L (3.4-5.1); Sodium 138 mmol/L (137-145)
== END ==
PROVIDERS: PCP Family Medicine; Referring Provider Internal Medicine; Visit Provider Internal Medicine
DX: I82.432 Acute embolism and thrombosis of left popliteal vein (principal); R55 Syncope and collapse
CPT/HCPCS: 36415; 80048

== ENCOUNTER → 2019-12-23 14:05 | Outpatient (CLI) | payer MEDICARE, OTHER, SELFPAY ==
[2018-05-30 10:08] VITALS: BMI 37.8
[2019-12-23 16:23] LABS: Alanine Aminotransferase 28 IU/L (<35); Albumin Globulin Ratio 1.1 (1.0-2.8); Alkaline Phosphatase 78 U/L (38-126); Aspartate Aminotransferase 32 IU/L (14-36); BUN Creatinine Ratio 18.6 (6-22); Bilirubin Total 0.4 mg/dL (0.2-1.3); Blood Urea Nitrogen 16 mg/dL (7-17); Calcium 9.2 mg/dL (8.4-10.2); Carbon Dioxide 29 mmol/L (22-32); Chloride 103 mmol/L (98-107); Cholesterol 213 mg/dL (140-199); Estimated Glomerular Filt Rate > 60.0 mL/min (>60); Globulin 3.5 g/dL (1.7-4.1); Glucose 96 mg/dL (80-110); HDL Cholesterol 59 mg/dL (40-60); HEMOLYSIS < 15 (0-50); LDL Cholesterol Calculated 129 mg/dL (<100); Potassium 4.5 mmol/L (3.4-5.1); Sodium 136 mmol/L (137-145); Total Protein 7.5 g/dL (6.3-8.2); Triglycerides 123 mg/dL (35-150)
[2019-12-23 16:40] LABS: Free T3, Triiodothyronine Free 4.02 pg/mL (2.77-5.27)
[2019-12-23 16:54] LABS: Thyroid Stimulating Hormone 1.08 uIU/mL (0.47-4.68)
== END ==
PROVIDERS: PCP Family Medicine; Referring Provider Family Medicine; Visit Provider Family Medicine
DX: E78.5 Hyperlipidemia, unspecified (principal); I15.8 Other secondary hypertension; Z13.29 Encounter for screening for other suspected endocrine disorder
CPT/HCPCS: 36415; 80053; 80061; 84439; 84443; 84481